=== PATIENT | female | born 1950 | race Caucasian/White ===

== ENCOUNTER 2018-06-12 16:42 | Inpatient (IN) | payer MEDICARE, BC ==
[2018-06-12] MEDS ORDERED: IPRATROPIUM-ALBUTEROL 3 ML NEB INHALATION STA (17:01)
--- NOTE | 2018-06-12 17:10 | ED ---
SOB HPI - General Chief Complaint: Shortness of Breath Stated Complaint: SOB Time Seen by Provider: 06/12/18 16:42 Source: patient, EMS, RN notes reviewed, old records reviewed Mode of arrival: ambulatory Limitations: no limitations - History of Present Illness Initial Comments: This is a 67-year-old female who presents with complaints of shortness of breath. She states she's had it on and off since April of this year. She states she has exertional dyspnea is been getting worse she believes today she has some chest pressure mild in severity she is states she generally does not feel well. She has recently had an echocardiogram which apparently was unremarkable except for perhaps some mild regurgitation she had a CAT scan which showed possible evidence of chronic pulmonary emboli in tertiary vessels on the right lower lobe. She denies any fevers chills nausea vomiting sweats she states she gets short of breath with even talking or very late physical activity. She also additionally states she has a history of asthma and had a cardiac cath 2 years ago that was apparently within normal limits. No other complaints this time no fevers chills nausea vomiting sweats cough or phlegm production reported. She did present by embolus today. MD Complaint: shortness of breath - Related Data Home Medications Medication Instructions Recorded Confirmed Atorvastatin Calcium [Lipitor] 10 mg PO DAILY 08/03/14 06/12/18 Cetirizine HCl [Zyrtec] 10 mg PO DAILY 08/03/14 06/12/18 Cholecalciferol [Vitamin D3] 400 unit PO DAILY 08/03/14 06/12/18 Fluticasone/Salmeterol [Advair 1 puff INHALATION RT-BID 08/03/14 06/12/18 500-50 Diskus] Montelukast [Singulair] 10 mg PO DAILY 08/03/14 06/12/18 Meclizine [Antivert] 25 mg PO TID PRN 10/22/15 06/12/18 Rivaroxaban [Xarelto] 20 mg PO DAILY 10/22/15 06/12/18 Acetaminophen [Tylenol] 1,000 mg PO Q4-6H PRN 11/04/15 06/12/18 Baclofen [Lioresal] 10 mg PO TID PRN 06/12/18 06/12/18 Calcium Carbonate [Calcium] 600 mg PO BID 06/12/18 06/12/18 Iron 45mg 45 mg PO MOWEFR 06/12/18 06/12/18 Lisinopril [Zestril] 5 mg PO DAILY 06/12/18 06/12/18 Omeprazole [PriLOSEC] 40 mg PO DAILY 06/12/18 06/12/18 Pregabalin [Lyrica] 100 mg PO TID 06/12/18 06/12/18 Propranolol LA [Inderal LA] 60 mg PO DAILY 06/12/18 06/12/18 Allergies Allergy/AdvReac Type Severity Reaction Status Date / Time butorphanol tartrate Allergy drop in bp Verified 06/12/18 17:07 [From Stadol] and increases resp rate celecoxib [From Celebrex] Allergy Itching in Verified 06/12/18 17:07 mouth and throat ciprofloxacin HCl Allergy Nausea & Verified 06/12/18 17:07 [From Cipro] Vomiting and headache codeine Allergy Nausea & Verified 06/12/18 17:07 Vomiting fentanyl Allergy Nausea & Verified 06/12/18 17:07 Vomiting hydrocodone bitartrate Allergy Nausea & Verified 06/12/18 17:07 [From Vicodin] Vomiting hydromorphone HCl Allergy Nausea & Verified 06/12/18 17:07 [From Dilaudid] Vomiting indomethacin sodium Allergy headache Verified 06/12/18 17:07 [From Indocin] meperidine HCl [From Demerol] Allergy headache Verified 06/12/18 17:07 methylprednisolone Allergy Unknown Verified 06/12/18 17:07 [From Medrol] metronidazole [From Flagyl] Allergy Unknown Verified 06/12/18 17:07 morphine Allergy Nausea & Verified 06/12/18 17:07 Vomiting oxycodone HCl [From Percodan] Allergy Nausea & Verified 06/12/18 17:07 Vomiting pentazocine lactate Allergy Unknown Verified 06/12/18 17:07 [From Talwin] propoxyphene HCl Allergy Unknown Verified 06/12/18 17:07 [From Darvon] Sulfa (Sulfonamide Allergy Nausea & Verified 06/12/18 17:07 Antibiotics) Vomiting Tetanus Vaccines and Toxoid Allergy Rash/Hives Verified 06/12/18 17:07 [Tetanus Vaccines & Toxoid] and itching tramadol Allergy Nausea & Verified 06/12/18 17:07 Vomiting & Diarrhea and headache Review of Systems ROS Statement: Those systems with pertinent positive or pertinent negative responses have been documented in the HPI. ROS Other: All systems not noted in ROS Statement are negative. Past Medical History Past Medical History: Asthma, Deep Vein Thrombosis (DVT), Fibromyalgia, Hyperlipidemia, Hypertension, Osteoarthritis (OA), Pneumonia, Pulmonary Embolus (PE) Additional Past Medical History / Comment(s): left ventricular hypertrophy, degenerative disk, on Rx for pink eye- Dr Dennison ok to procede with procedure History of Any Multi-Drug Resistant Organisms: None Reported Past Surgical History: Hysterectomy, Orthopedic Surgery Additional Past Surgical History / Comment(s): two total knee replacement, cataracts, 3-16 HEART CATH Past Anesthesia/Blood Transfusion Reactions: Motion Sickness, Postoperative Nausea & Vomiting (PONV) Past Psychological History: No Psychological Hx Reported Smoking Status: Never smoker Past Alcohol Use History: None Reported Past Drug Use History: None Reported - Past Family History Mother Family Medical History: Cancer, Chest Pain / Angina, Hyperlipidemia, Osteoarthritis (OA) Additional Family Medical History / Comment(s): breast cancer 2x.-masectomy uterine cancer- hysterectomy Father Family Medical History: Dementia, Diabetes Mellitus General Exam - General Exam Comments Initial Comments: This is a well-developed well-nourished awake alert oriented 3 female Limitations: no limitations General appearance: alert, anxious Head exam: Present: atraumatic, normocephalic, normal inspection Eye exam: Present: normal appearance, PERRL, EOMI. Absent: scleral icterus, conjunctival injection, periorbital swelling ENT exam: Present: normal exam, mucous membranes moist Neck exam: Present: normal inspection. Absent: tenderness, meningismus, lymphadenopathy Respiratory exam: Present: decreased breath sounds (Slightly diminished breath sounds). Absent: respiratory distress, wheezes, rales, rhonchi, stridor Cardiovascular Exam: Present: regular rate, normal rhythm, normal heart sounds. Absent: systolic murmur, diastolic murmur, rubs, gallop, clicks GI/Abdominal exam: Present: soft, normal bowel sounds. Absent: distended, tenderness, guarding, rebound, rigid Extremities exam: Present: normal inspection, full ROM, normal capillary refill. Absent: tenderness, pedal edema, joint swelling, calf tenderness Back exam: Present: normal inspection Neurological exam: Present: alert, oriented X3, CN II-XII intact Psychiatric exam: Present: normal affect, normal mood Skin exam: Present: warm, dry, intact, normal color. Absent: rash Course Vital Signs 06/12/18 06/12/18 06/12/18 16:43 16:49 16:50 Temperature 97 F L Pulse Rate 66 Respiratory 18 23 Rate Blood Pressure 170/92 O2 Sat by Pulse 96 97 96 Oximetry 06/12/18 06/12/18 06/12/18 17:30 17:40 17:50 Temperature Pulse Rate 62 51 L 56 L Respiratory 18 6 L 5 L Rate Blood Pressure 169/88 169/88 169/88 O2 Sat by Pulse 96 96 96 Oximetry 06/12/18 06/12/18 06/12/18 17:59 18:00 18:08 Temperature Pulse Rate 66 56 L 66 Respiratory 18 Rate Blood Pressure 169/88 O2 Sat by Pulse 96 Oximetry 06/12/18 18:20 Temperature Pulse Rate 53 L Respiratory 18 Rate Blood Pressure 143/76 O2 Sat by Pulse 96 Oximetry Medical Decision Making - Medical Decision Making Patient states she had minimal relief from the treatment rendered thus far. I did discuss Pfizer her and her as well as with Dr. Monroe. Patient be admitted she will be placed on heparin taken off of the current anticoagulants and pulmonary medicine will be consulted. - Lab Data Result diagrams: 06/12/18 17:13 06/12/18 17:13 Lab Results 06/12/18 06/12/18 06/12/18 Range/Units 17:13 17:13 17:13 WBC 8.1 (3.8-10.6) k/uL RBC 4.73 (3.80-5.40) m/uL Hgb 14.4 (11.4-16.0) gm/dL Hct 43.8 (34.0-46.0) % MCV 92.6 (80.0-100.0) fL MCH 30.5 (25.0-35.0) pg MCHC 32.9 (31.0-37.0) g/dL RDW 13.0 (11.5-15.5) % Plt Count 188 (150-450) k/uL Neutrophils % 62 % Lymphocytes % 29 % Monocytes % 5 % Eosinophils % 1 % Basophils % 0 % Neutrophils # 5.0 (1.3-7.7) k/uL Lymphocytes # 2.4 (1.0-4.8) k/uL Monocytes # 0.4 (0-1.0) k/uL Eosinophils # 0.1 (0-0.7) k/uL Basophils # 0.0 (0-0.2) k/uL PT (9.0-12.0) sec INR (<1.2) APTT (22.0-30.0) sec Sodium 140 (137-145) mmol/L Potassium 4.1 (3.5-5.1) mmol/L Chloride 109 H (98-107) mmol/L Carbon Dioxide 23 (22-30) mmol/L Anion Gap 8 mmol/L BUN 20 H (7-17) mg/dL Creatinine 0.55 (0.52-1.04) mg/dL Est GFR (CKD-EPI)AfAm >90 (>60 ml/min/1.73 sqM) Est GFR (CKD-EPI)NonAf >90 (>60 ml/min/1.73 sqM) Glucose 98 (74-99) mg/dL Calcium 9.7 (8.4-10.2) mg/dL Magnesium 2.1 (1.6-2.3) mg/dL Total Bilirubin 0.5 (0.2-1.3) mg/dL AST 26 (14-36) U/L ALT 27 (9-52) U/L Alkaline Phosphatase 74 (38-126) U/L Total Creatine Kinase 48 (30-135) U/L CK-MB (CK-2) 1.0 (0.0-2.4) ng/mL CK-MB (CK-2) Rel Index 2.1 Troponin I <0.012 (0.000-0.034) ng/mL NT-Pro-B Natriuret Pep pg/mL Total Protein 6.6 (6.3-8.2) g/dL Albumin 3.8 (3.5-5.0) g/dL 06/12/18 06/12/18 Range/Units 17:13 17:13 WBC (3.8-10.6) k/uL RBC (3.80-5.40) m/uL Hgb (11.4-16.0) gm/dL Hct (34.0-46.0) % MCV (80.0-100.0) fL MCH (25.0-35.0) pg MCHC (31.0-37.0) g/dL RDW (11.5-15.5) % Plt Count (150-450) k/uL Neutrophils % % Lymphocytes % % Monocytes % % Eosinophils % % Basophils % % Neutrophils # (1.3-7.7) k/uL Lymphocytes # (1.0-4.8) k/uL Monocytes # (0-1.0) k/uL Eosinophils # (0-0.7) k/uL Basophils # (0-0.2) k/uL PT 11.8 (9.0-12.0) sec INR 1.2 H (<1.2) APTT 28.3 (22.0-30.0) sec Sodium (137-145) mmol/L Potassium (3.5-5.1) mmol/L Chloride (98-107) mmol/L Carbon Dioxide (22-30) mmol/L Anion Gap mmol/L BUN (7-17) mg/dL Creatinine (0.52-1.04) mg/dL Est GFR (CKD-EPI)AfAm (>60 ml/min/1.73 sqM) Est GFR (CKD-EPI)NonAf (>60 ml/min/1.73 sqM) Glucose (74-99) mg/dL Calcium (8.4-10.2) mg/dL Magnesium (1.6-2.3) mg/dL Total Bilirubin (0.2-1.3) mg/dL AST (14-36) U/L ALT (9-52) U/L Alkaline Phosphatase (38-126) U/L Total Creatine Kinase (30-135) U/L CK-MB (CK-2) (0.0-2.4) ng/mL CK-MB (CK-2) Rel Index Troponin I (0.000-0.034) ng/mL NT-Pro-B Natriuret Pep 123 pg/mL Total Protein (6.3-8.2) g/dL Albumin (3.5-5.0) g/dL - EKG Data -: EKG Interpreted by [facility] EKG shows normal: sinus rhythm (EKG shows a sinus bradycardia with a rate of 50. Interval 208 QRS duration 88 QT since QTC 4:30/399. Criteria for LVH no acute ST changes noted.) - Radiology Data Radiology results: image reviewed Interpreted by me: I did review the imaging and report no definite acute findings or some evidence of chronic tertiary level PEs. Critical Care Time Critical Care Time: Yes Critical Care Time: 31 minutes of critical care time which includes monitoring the EMS run and discussion with the paramedics history physical labs x-rays several reevaluation the patient. Discussed with patient family discuss with the admitting physician review of old charting documentation the above and admission orders. Disposition Clinical Impression: Pulmonary embolism, Dyspnea, Failure of outpatient treatment Disposition: ADMITTED IP TO THIS [facility] Condition: Stable Referrals: Gallo Monroe MD [Primary Care Provider] - 1-2 days
[2018-06-12 17:33] LABS: Basophils % (A) 0 %; Eosinophils # (A) 0.1 k/uL (0-0.7); Eosinophils % (A) 1 %; HCT 43.8 % (34.0-46.0); HGB 14.4 gm/dL (11.4-16.0); Lymphocytes # (A) 2.4 k/uL (1.0-4.8); Lymphocytes % (A) 29 %; MCH 30.5 pg (25.0-35.0); MCHC 32.9 g/dL (31.0-37.0); MCV 92.6 fL (80.0-100.0); Mean Platelet Volume 7.1; Monocytes # (A) 0.4 k/uL (0-1.0); Monocytes % (A) 5 %; Neutrophils % (A) 62 %; Platelet Count 188 k/uL (150-450); RBC 4.73 m/uL (3.80-5.40); WBC 8.1 k/uL (3.8-10.6)
[2018-06-12 17:34] LABS: ALT 27 U/L (9-52); AST 26 U/L (14-36); Albumin 3.8 g/dL (3.5-5.0); Alkaline Phosphatase 74 U/L (38-126); Anion Gap 8 mmol/L; Blood Urea Nitrogen 20 mg/dL (7-17); Calcium 9.7 mg/dL (8.4-10.2); Carbon Dioxide 23 mmol/L (22-30); Chloride 109 mmol/L (98-107); Glucose 98 mg/dL (74-99); Magnesium 2.1 mg/dL (1.6-2.3); Potassium 4.1 mmol/L (3.5-5.1); Sodium 140 mmol/L (137-145); Total Bilirubin 0.5 mg/dL (0.2-1.3); Total Protein 6.6 g/dL (6.3-8.2)
[2018-06-12 17:36] LABS: Creatine Kinase 48 U/L (30-135)
[2018-06-12 17:38] LABS: INR 1.2 (<1.2); Partial Thromboplastin Time 28.3 sec (22.0-30.0); Prothrombin Time 11.8 sec (9.0-12.0)
[2018-06-12 17:49] LABS: Troponin I <0.012 ng/mL (0.000-0.034)
--- NOTE | 2018-06-12 18:31 | XR ---
EXAMINATION TYPE: XR chest 2V DATE OF EXAM: 06/12/2018 COMPARISON: 08/03/2014 HISTORY: Short of breath TECHNIQUE: Frontal and lateral views of the chest are obtained. FINDINGS: Heart and mediastinum are normal. Lungs are clear of consolidation. There is no heart fail ure. There are chest leads. Costophrenic angles are clear. IMPRESSION: No active cardiopulmonary disease. There is improved inspiration compared to old exam.
[2018-06-12] MEDS ORDERED: HEPARIN SODIUM,PORCINE 5,000 UNIT/ML 1 ML VIAL IV STA (19:59)
[2018-06-12] MEDS ORDERED: BACLOFEN 10 MG TAB PO PRN (20:12)
[2018-06-12] MEDS ORDERED: MECLIZINE 25 MG TAB PO PRN (20:12)
[2018-06-12] MEDS: SODIUM CHLORIDE 0.9% 1,000 ML IV SCH (20:20)
[2018-06-12] MEDS: HEPARIN SOD,PORK IN 0.45% NACL 25,000 UNIT in 0.45% NACL 1 500ML.BAG IV SCH (20:21)
[2018-06-12] MEDS: IPRATROPIUM-ALBUTEROL 3 ML NEB INHALATION SCH (20:53)
[2018-06-12] MEDS: PREGABALIN 100 MG CAP PO SCH (21:26)
[2018-06-12] MEDS: CALCIUM CARBONATE 500 MG CHEWABLE PO SCH (21:26)
[2018-06-12] MEDS: ACETAMINOPHEN TAB 500 MG TAB PO PRN (22:15)
[2018-06-13] MEDS: IPRATROPIUM-ALBUTEROL 3 ML NEB INHALATION SCH ×7 (00:30→19:44)
[2018-06-13] MEDS: PANTOPRAZOLE 40 MG TABLET PO SCH (06:01)
[2018-06-13] MEDS ORDERED: SYMBICORT 160-4.5 MCG INHALER INHALATION SCH (08:00)
[2018-06-13] MEDS: ATORVASTATIN 10 MG TAB PO SCH (10:08)
[2018-06-13] MEDS: LISINOPRIL 5 MG TAB PO SCH (10:08)
[2018-06-13] MEDS: FERROUS SULFATE 325 MG TAB PO SCH (10:08)
[2018-06-13] MEDS: CALCIUM CARBONATE 500 MG CHEWABLE PO SCH ×2 (10:08→20:35)
[2018-06-13] MEDS: PREGABALIN 100 MG CAP PO SCH ×3 (10:08→20:35)
[2018-06-13] MEDS: PROPRANOLOL LA 60 MG CAP.SA.24H PO SCH (10:14)
[2018-06-13] MEDS: CHOLECALCIFEROL 400 UNIT TAB PO SCH (10:14)
[2018-06-13] MEDS: ACETAMINOPHEN TAB 500 MG TAB PO PRN ×3 (10:14→20:47)
[2018-06-13] MEDS: LORATADINE 10 MG TAB PO SCH (10:15)
[2018-06-13] MEDS: MONTELUKAST 10 MG TAB PO SCH (10:15)
[2018-06-13] MEDS: HEPARIN SOD,PORK IN 0.45% NACL 25,000 UNIT in 0.45% NACL 1 500ML.BAG IV SCH ×2 (12:35→12:40)
--- NOTE | 2018-06-13 12:48 | P.CRDCN ---
History of Present Illness Consult date: 06/13/18 Chief complaint: Shortness of breath History of present illness: This is a pleasant 67-year-old female patient with a past medical history significant for hypertension and dyslipidemia was sent directly from her primary care physician office to the hospital for further evaluation off shortness of breath and presyncope. For the last 4 weeks, she has been experiencing progressive exertional dyspnea without orthopnea and without any PND. The patient stated that the shortness of breath was getting worse even walking from one room to another room at home enough to make her short of breath. The patient does not have any baseline shortness of breath with exertion before her symptoms started about 4 weeks ago. She does have asthma and also she does have history of PE she is on oral anticoagulation since 2013. Beside that the patient describes chest discomfort , as a tightness across the chest, without any radiation. Yesterday the patient was seen at her primary care physician office and she was quite short of breath and because of that she was sent to have a computed tomography scan of the chest which showed possible PE. An echocardiogram was performed recently as an outpatient and revealed normal LV function with impaired relaxation of the left ventricle or stage I diastolic dysfunction and without any significant valvular abnormalities. Because the patient was quite short of breath yesterday and she was having presyncope she was sent to the hospital for further evaluation and management. The EKG showed sinus rhythm without any significant ST or T-wave abnormalities. The chest x-ray did not show any acute abnormalities. The BNP came in to be within normal limits. The CBC and BNP came in to be within normal limits. 2 sets of troponin were checked and came in to be unremarkable. I did review the echocardiogram which was performed at [facility] and also the computed tomography scan as well. Please note that the patient underwent a heart catheterization in 2016 and that revealed no evidence of severe underlying coronary artery disease. She has been maintaining normal sinus mechanism Y she is in the hospital. Past Medical History Past Medical History: Asthma, Deep Vein Thrombosis (DVT), Fibromyalgia, Hyperlipidemia, Hypertension, Osteoarthritis (OA), Pneumonia, Pulmonary Embolus (PE) Additional Past Medical History / Comment(s): left ventricular hypertrophy, degenerative disk, History of Any Multi-Drug Resistant Organisms: None Reported Past Surgical History: Hysterectomy, Orthopedic Surgery Additional Past Surgical History / Comment(s): two total knee replacement, cataracts, 11-04-15 HEART CATH Past Anesthesia/Blood Transfusion Reactions: Motion Sickness, Postoperative Nausea & Vomiting (PONV) Smoking Status: Never smoker - Past Family History Mother Family Medical History: Cancer, Chest Pain / Angina, Hyperlipidemia, Osteoarthritis (OA) Additional Family Medical History / Comment(s): breast cancer 2x.-masectomy uterine cancer- hysterectomy Father Family Medical History: Dementia, Diabetes Mellitus Medications and Allergies Home Medications Medication Instructions Recorded Confirmed Type Atorvastatin Calcium [Lipitor] 10 mg PO DAILY 08/03/14 06/12/18 History Cetirizine HCl [Zyrtec] 10 mg PO DAILY 08/03/14 06/12/18 History Cholecalciferol [Vitamin D3] 400 unit PO DAILY 08/03/14 06/12/18 History Fluticasone/Salmeterol [Advair 1 puff INHALATION RT-BID 08/03/14 06/12/18 History 500-50 Diskus] Montelukast [Singulair] 10 mg PO DAILY 08/03/14 06/12/18 History Meclizine [Antivert] 25 mg PO TID PRN 10/22/15 06/12/18 History Rivaroxaban [Xarelto] 20 mg PO DAILY 10/22/15 06/12/18 History Acetaminophen [Tylenol] 1,000 mg PO Q4-6H PRN 11/04/15 06/12/18 History Baclofen [Lioresal] 10 mg PO TID PRN 06/12/18 06/12/18 History Calcium Carbonate [Calcium] 600 mg PO BID 06/12/18 06/12/18 History Iron 45mg 45 mg PO MOWEFR 06/12/18 06/12/18 History Lisinopril [Zestril] 5 mg PO DAILY 06/12/18 06/12/18 History Omeprazole [PriLOSEC] 40 mg PO DAILY 06/12/18 06/12/18 History Pregabalin [Lyrica] 100 mg PO TID 06/12/18 06/12/18 History Propranolol LA [Inderal LA] 60 mg PO DAILY 06/12/18 06/12/18 History Allergies Allergy/AdvReac Type Severity Reaction Status Date / Time butorphanol tartrate Allergy drop in bp Verified 06/12/18 17:07 [From Stadol] and increases resp rate celecoxib [From Celebrex] Allergy Itching in Verified 06/12/18 17:07 mouth and throat ciprofloxacin HCl Allergy Nausea & Verified 06/12/18 17:07 [From Cipro] Vomiting and headache codeine Allergy Nausea & Verified 06/12/18 17:07 Vomiting fentanyl Allergy Nausea & Verified 06/12/18 17:07 Vomiting hydrocodone bitartrate Allergy Nausea & Verified 06/12/18 17:07 [From Vicodin] Vomiting hydromorphone HCl Allergy Nausea & Verified 06/12/18 17:07 [From Dilaudid] Vomiting indomethacin sodium Allergy headache Verified 06/12/18 17:07 [From Indocin] meperidine HCl [From Demerol] Allergy headache Verified 06/12/18 17:07 methylprednisolone Allergy Unknown Verified 06/12/18 17:07 [From Medrol] metronidazole [From Flagyl] Allergy Unknown Verified 06/12/18 17:07 morphine Allergy Nausea & Verified 06/12/18 17:07 Vomiting oxycodone HCl [From Percodan] Allergy Nausea & Verified 06/12/18 17:07 Vomiting pentazocine lactate Allergy Unknown Verified 06/12/18 17:07 [From Talwin] propoxyphene HCl Allergy Unknown Verified 06/12/18 17:07 [From Darvon] Sulfa (Sulfonamide Allergy Nausea & Verified 06/12/18 17:07 Antibiotics) Vomiting Tetanus Vaccines and Toxoid Allergy Rash/Hives Verified 06/12/18 17:07 [Tetanus Vaccines & Toxoid] and itching tramadol Allergy Nausea & Verified 06/12/18 17:07 Vomiting & Diarrhea and headache Physical Exam Vitals: Vital Signs Temp Pulse Pulse Resp BP BP Pulse Ox 06/13/18 12:13 60 06/13/18 12:02 60 06/13/18 11:35 53 L 18 06/13/18 08:32 60 06/13/18 08:19 56 L 06/13/18 08:00 98.1 F 53 L 18 138/65 96 06/13/18 04:00 58 L 16 111/60 93 L 06/13/18 00:00 97.5 F L 64 16 107/67 96 06/12/18 22:04 96.9 F L 60 16 168/79 95 06/12/18 21:10 97.9 F 65 18 122/75 96 06/12/18 21:04 68 06/12/18 20:54 68 06/12/18 20:30 68 15 134/76 95 06/12/18 20:20 62 21 95 06/12/18 20:10 61 20 96 06/12/18 20:00 61 18 125/62 94 L 06/12/18 19:50 56 L 18 125/62 95 06/12/18 19:40 58 L 12 125/62 95 06/12/18 19:30 53 L 11 L 125/62 96 06/12/18 19:10 60 18 125/62 95 06/12/18 18:20 53 L 18 143/76 96 06/12/18 18:08 66 06/12/18 18:00 56 L 18 169/88 96 06/12/18 17:59 66 06/12/18 17:50 56 L 5 L 169/88 96 06/12/18 17:40 51 L 6 L 169/88 96 06/12/18 17:30 62 18 169/88 96 06/12/18 16:50 23 96 06/12/18 16:49 97 06/12/18 16:43 97 F L 66 18 170/92 96 Intake and Output 06/12/18 06/13/18 06/13/18 22:59 06:59 14:59 Intake Total 40 238.56 256.749 Balance 40 238.56 256.749 Intake: Intake, IV Titration 40 238.56 156.749 Amount Heparin Sod,Pork in 0.45% 238.56 156.749 NaCl 25,000 unit In 0.45 % NaCl 1 500ml.bag @ 18 UNITS/KG/HR 28.57 mls/hr IV .[id number] [facility] Rx#: [id number] Sodium Chloride 0.9% 1, 40 000 ml @ 20 mls/hr IV . Q24H [facility] Rx#:[id number] Oral 100 Other: Voiding Method Toilet # Voids 1 1 Weight 79.379 kg 79.6 kg - Constitutional General appearance: no acute distress - Respiratory Respiratory: bilateral: CTA - Cardiovascular Rhythm: regular Heart sounds: normal: S1, S2 Results 06/12/18 17:13 06/12/18 17:13 Cardiac Enzymes 06/12/18 06/12/18 06/12/18 Range/Units 17:13 17:13 23:11 AST 26 (14-36) U/L CK-MB (CK-2) 1.0 (0.0-2.4) ng/mL Troponin I <0.012 <0.012 (0.000-0.034) ng/mL Coagulation 06/12/18 06/13/18 06/13/18 Range/Units 17:13 02:58 11:27 PT 11.8 (9.0-12.0) sec APTT 28.3 >200.0 H* >200.0 H* (22.0-30.0) sec CBC 06/12/18 Range/Units 17:13 WBC 8.1 (3.8-10.6) k/uL RBC 4.73 (3.80-5.40) m/uL Hgb 14.4 (11.4-16.0) gm/dL Hct 43.8 (34.0-46.0) % Plt Count 188 (150-450) k/uL Comprehensive Metabolic Panel 06/12/18 Range/Units 17:13 Sodium 140 (137-145) mmol/L Potassium 4.1 (3.5-5.1) mmol/L Chloride 109 H (98-107) mmol/L Carbon Dioxide 23 (22-30) mmol/L BUN 20 H (7-17) mg/dL Creatinine 0.55 (0.52-1.04) mg/dL Glucose 98 (74-99) mg/dL Calcium 9.7 (8.4-10.2) mg/dL AST 26 (14-36) U/L ALT 27 (9-52) U/L Alkaline Phosphatase 74 (38-126) U/L Total Protein 6.6 (6.3-8.2) g/dL Albumin 3.8 (3.5-5.0) g/dL Current Medications Generic Name Dose Route Start Last Admin Trade Name Freq PRN Reason Stop Dose Admin Acetaminophen 1,000 mg 06/12/18 20:12 06/13/18 10:14 Tylenol Tab PO 1,000 mg Q4H PRN Administration Mild to Moderate Pain Albuterol/Ipratropium 3 ml 06/12/18 20:00 06/13/18 12:02 Duoneb 0.5 Mg-3 Mg/3 Ml Soln INHALATION 3 ml RT-Q4H [facility]O Administration Atorvastatin Calcium 10 mg 06/13/18 09:00 06/13/18 10:08 Lipitor PO 10 mg DAILY [facility]O Administration Baclofen 10 mg 06/12/18 20:12 Lioresal PO TID PRN Muscle Spasm Budesonide/Formoterol Fumarate 2 puff 06/13/18 08:00 06/13/18 08:19 Symbicort 160-4.5 Mcg Inhaler INHALATION 2 puff RT-BID [facility] Administration Calcium Carbonate/Glycine 500 mg 06/12/18 21:00 06/13/18 10:08 Tums PO 500 mg BID [facility] Administration Cholecalciferol 400 unit 06/13/18 09:00 06/13/18 10:14 Vitamin D3 PO 400 unit DAILY [facility] Administration Ferrous Sulfate 325 mg 06/13/18 09:00 06/13/18 10:08 Feosol PO 325 mg MOWEFR [facility] Administration Heparin Sodium/Sodium Chloride 500 mls @ 28.57 mls/hr 06/12/18 20:00 12:40 25,000 unit/ Sodium Chloride IV Not Given .[id number] [facility] Protocol 18 UNITS/KG/HR Sodium Chloride 1,000 mls @ 20 mls/hr 06/12/18 20:00 06/12/18 20:20 Saline 0.9% IV 20 mls/hr .Q24H [facility] Administration Lisinopril 5 mg 06/13/18 09:00 06/13/18 10:08 Zestril PO 5 mg DAILY [facility] Administration Loratadine 10 mg 06/13/18 09:00 06/13/18 10:15 Claritin PO 10 mg DAILY [facility] Administration Meclizine HCl 25 mg 06/12/18 20:12 Antivert PO TID PRN dizzyness Montelukast Sodium 10 mg 06/13/18 09:00 06/13/18 10:15 Singulair PO 10 mg DAILY [facility] Administration Pantoprazole Sodium 40 mg 06/13/18 07:30 06/13/18 06:01 Protonix PO 40 mg [id number] [facility]O Administration Pregabalin 100 mg 06/12/18 22:00 06/13/18 10:08 Lyrica PO 100 mg TID [facility] Administration Propranolol HCl 60 mg 06/13/18 09:00 06/13/18 10:14 Inderal La PO 60 mg DAILY [facility] Administration Intake and Output 06/12/18 06/13/18 06/13/18 22:59 06:59 14:59 Intake Total 40 238.56 256.749 Balance 40 238.56 256.749 Intake: Intake, IV Titration 40 238.56 156.749 Amount Heparin Sod,Pork in 0.45% 238.56 156.749 NaCl 25,000 unit In 0.45 % NaCl 1 500ml.bag @ 18 UNITS/KG/HR 28.57 mls/hr IV .[id number] [facility] Rx#: [id number] Sodium Chloride 0.9% 1, 40 000 ml @ 20 mls/hr IV . Q24H [facility] Rx#:[id number] Oral 100 Other: Voiding Method Toilet # Voids 1 1 Weight 79.379 kg 79.6 kg 06/12/18 17:13 06/12/18 17:13 Assessment and Plan Assessment: Assessment #1 exertional dyspnea without orthopnea or PND. No lower extremities edema. #2 possible pulmonary pauses in on a recent computed tomography scan of the chest in a patient who is known to have PE currently on oral anticoagulation. #3 diastolic dysfunction of the left ventricle, stage I, the patient currently is in euvolemic #4 systemic hypertension #5 hypertensive heart disease Plan #1 the patient does not seems to be in overt congestive heart failure at this point. Beside that, her BNP came in to be within normal limits and the chest x- ray did not show any acute abnormalities #2 I doubt that her symptoms are related to severe underlying CAD, giving a normal coronary angiogram was performed 2 years ago, in 2016 #3 I would rule out any acute coronary event. I will obtain one more sets of serial cardiac enzymes. #4 currently the patient is on heparin IV for anticoagulation for possible PE. I with maybe consider changing the Xarelto into different oral anticoagulation right Eliquis. #5 down the line, and probably as an outpatient, she might need to have transesophageal echocardiogram to rule out any intracardiac shunt like atrial septal defect, giving the right side enlargement on the echocardiogram #6 we will continue following up with her. Thank you for allowing us participate in her care.
--- NOTE | 2018-06-13 12:50 | P.HPIM ---
History of Present Illness H&P Date: 06/13/18 This is a 67-year-old female patient of Dr. Monroe and Dr. Lazar with a past medical history of asthma, DVT and pulmonary embolus diagnosed 4 years ago on Xarelto, fibromyalgia, hypertension, hyperlipidemia, left ventricular hypertrophy, diffuse osteoarthritis, ALLERGIC rhinitis, chronic back pain status post epidural injections. Patient recently underwent CAT scan of the chest that showed possible chronic pulmonary emboli and had an echocardiogram in the office that showed diastolic dysfunction and normal EF. She was in the office for an appointment and was sitting down, thought she was going to pass out and fall she couldn't walk to the car. EMS was called and she was brought into the hospital. She stated that she was feeling lightheaded and almost nauseated along with shortness of breath. She denies any cough or sputum production she denies any lower extremity edema. Bowel movements have been normal. She states that she feels like she is not getting enough breath. While at the office, a prescription for eliquis was sent in for the patient to start instead of Xarelto. She has history of a normal heart catheterization done in October [address] Dennison. Patient presented to [facility] emergency center, initial blood pressure was 170/92, she was afebrile. Heart rate running in the 50s and 60s. Troponin was negative, proBNP 123. EKG was a sinus bradycardia. Chest x- ray showed no acute cardiopulmonary disease. Patient was started on a heparin drip and admitted to the cardiac stepdown unit and consult requested with pulmonary medicine and after evaluation, cardiology consult requested regarding lightheadedness and near syncopal episode. Patient states that she did not get any sleep during the night as she was woken up about every hour and a half. She is complaining of headache this morning. She was on the phone with her son in time for less than 5 minutes to fall she was very short of breath. Review of Systems All systems: negative Constitutional: Reports fatigue, Reports weakness, Denies chills, Denies fever, Denies poor appetite, Denies weight loss Eyes: denies blurred vision, denies pain Ears, nose, mouth and throat: Denies dental pain, Denies headache, Denies mouth pain, Denies sore throat, Denies vertigo Cardiovascular: Reports lightheadedness, Reports shortness of breath, Denies chest pain, Denies leg edema, Denies palpitations, Denies syncope Respiratory: Reports dyspnea, Denies cough, Denies cough with sputum, Denies excessive sputum, Denies hemoptysis, Denies home oxygen, Denies sleep apnea, Denies wheezing Gastrointestinal: Denies abdominal pain, Denies bloating, Denies constipation, Denies diarrhea, Denies loss of appetite, Denies melena, Denies nausea, Denies vomiting Genitourinary: Denies dysuria, Denies hematuria, Denies urgency, Denies urinary frequency Musculoskeletal: Denies frequent falls, Denies gait dysfunction, Denies myalgias Integumentary: Denies pruritus, Denies rash, Denies wounds Neurological: Denies numbness, Denies weakness Psychiatric: Denies anxiety, Denies depression Endocrine: Denies fatigue, Denies weight change Past Medical History Past Medical History: Asthma, Deep Vein Thrombosis (DVT), Fibromyalgia, Hyperlipidemia, Hypertension, Osteoarthritis (OA), Pneumonia, Pulmonary Embolus (PE) Additional Past Medical History / Comment(s): left ventricular hypertrophy, degenerative disk disease of cervical spine and lumbar spine, migraine headaches , salivary gland blockage seen by Dr. Lock, tremor History of Any Multi-Drug Resistant Organisms: None Reported Past Surgical History: Hysterectomy, Orthopedic Surgery Additional Past Surgical History / Comment(s): two total knee replacement, cataracts, 3-9-16 HEART CATH Past Anesthesia/Blood Transfusion Reactions: Motion Sickness, Postoperative Nausea & Vomiting (PONV) Smoking Status: Never smoker Additional Past Alcohol Use History / Comment(s): Patient is a lifelong nonsmoker, no illicit drug use, no alcohol use. She lives at home with her second . She does have history of secondhand smoke exposure 8+ years with her first . - Past Family History Mother Family Medical History: Cancer, Chest Pain / Angina, Hyperlipidemia, Osteoarthritis (OA) Additional Family Medical History / Comment(s): breast cancer 2x.-masectomy uterine cancer- hysterectomy. Mother at age 94 from sepsis, renal failure and history of chronic small bowel obstruction. Father Family Medical History: Dementia, Diabetes Mellitus Additional Family Medical History / Comment(s): Father at age 93 with history of dementia and diabetes Sister(s) Additional Family Medical History / Comment(s): Patient has one sister with history of breast cancer. Patient has no brothers. Patient has one son with history of seasonal ALLERGIES. Medications and Allergies Home Medications Medication Instructions Recorded Confirmed Type Atorvastatin Calcium [Lipitor] 10 mg PO DAILY 08/03/14 06/12/18 History Cetirizine HCl [Zyrtec] 10 mg PO DAILY 08/03/14 06/12/18 History Cholecalciferol [Vitamin D3] 400 unit PO DAILY 08/03/14 06/12/18 History Fluticasone/Salmeterol [Advair 1 puff INHALATION RT-BID 08/03/14 06/12/18 History 500-50 Diskus] Montelukast [Singulair] 10 mg PO DAILY 08/03/14 06/12/18 History Meclizine [Antivert] 25 mg PO TID PRN 10/22/15 06/12/18 History Rivaroxaban [Xarelto] 20 mg PO DAILY 10/22/15 06/12/18 History Acetaminophen [Tylenol] 1,000 mg PO Q4-6H PRN 11/04/15 06/12/18 History Baclofen [Lioresal] 10 mg PO TID PRN 06/12/18 06/12/18 History Calcium Carbonate [Calcium] 600 mg PO BID 06/12/18 06/12/18 History Iron 45mg 45 mg PO MOWEFR 06/12/18 06/12/18 History Lisinopril [Zestril] 5 mg PO DAILY 06/12/18 06/12/18 History Omeprazole [PriLOSEC] 40 mg PO DAILY 06/12/18 06/12/18 History Pregabalin [Lyrica] 100 mg PO TID 06/12/18 06/12/18 History Propranolol LA [Inderal LA] 60 mg PO DAILY 06/12/18 06/12/18 History Allergies Allergy/AdvReac Type Severity Reaction Status Date / Time butorphanol tartrate Allergy drop in bp Verified 06/12/18 17:07 [From Stadol] and increases resp rate celecoxib [From Celebrex] Allergy Itching in Verified 06/12/18 17:07 mouth and throat ciprofloxacin HCl Allergy Nausea & Verified 06/12/18 17:07 [From Cipro] Vomiting and headache codeine Allergy Nausea & Verified 06/12/18 17:07 Vomiting fentanyl Allergy Nausea & Verified 06/12/18 17:07 Vomiting hydrocodone bitartrate Allergy Nausea & Verified 06/12/18 17:07 [From Vicodin] Vomiting hydromorphone HCl Allergy Nausea & Verified 06/12/18 17:07 [From Dilaudid] Vomiting indomethacin sodium Allergy headache Verified 06/12/18 17:07 [From Indocin] meperidine HCl [From Demerol] Allergy headache Verified 06/12/18 17:07 methylprednisolone Allergy Unknown Verified 06/12/18 17:07 [From Medrol] metronidazole [From Flagyl] Allergy Unknown Verified 06/12/18 17:07 morphine Allergy Nausea & Verified 06/12/18 17:07 Vomiting oxycodone HCl [From Percodan] Allergy Nausea & Verified 06/12/18 17:07 Vomiting pentazocine lactate Allergy Unknown Verified 06/12/18 17:07 [From Talwin] propoxyphene HCl Allergy Unknown Verified 06/12/18 17:07 [From Darvon] Sulfa (Sulfonamide Allergy Nausea & Verified 06/12/18 17:07 Antibiotics) Vomiting Tetanus Vaccines and Toxoid Allergy Rash/Hives Verified 06/12/18 17:07 [Tetanus Vaccines & Toxoid] and itching tramadol Allergy Nausea & Verified 06/12/18 17:07 Vomiting & Diarrhea and headache Physical Exam Vitals: Vital Signs Temp Pulse Pulse Resp BP BP Pulse Ox 06/13/18 08:32 60 06/13/18 08:19 56 L 06/13/18 04:00 58 L 16 111/60 93 L 06/13/18 00:00 97.5 F L 64 16 107/67 96 06/12/18 22:04 96.9 F L 60 16 168/79 95 06/12/18 21:10 97.9 F 65 18 122/75 96 06/12/18 21:04 68 06/12/18 20:54 68 06/12/18 20:30 68 15 134/76 95 06/12/18 20:20 62 21 95 06/12/18 20:10 61 20 96 06/12/18 20:00 61 18 125/62 94 L 06/12/18 19:50 56 L 18 125/62 95 06/12/18 19:40 58 L 12 125/62 95 06/12/18 19:30 53 L 11 L 125/62 96 06/12/18 19:10 60 18 125/62 95 06/12/18 18:20 53 L 18 143/76 96 06/12/18 18:08 66 06/12/18 18:00 56 L 18 169/88 96 06/12/18 17:59 66 06/12/18 17:50 56 L 5 L 169/88 96 06/12/18 17:40 51 L 6 L 169/88 96 06/12/18 17:30 62 18 169/88 96 06/12/18 16:50 23 96 06/12/18 16:49 97 06/12/18 16:43 97 F L 66 18 170/92 96 Intake and Output 06/12/18 06/13/18 06/13/18 22:59 06:59 14:59 Intake Total 40 238.56 100 Balance 40 238.56 100 Intake: Intake, IV Titration 40 238.56 Amount Heparin Sod,Pork in 0.45% 238.56 NaCl 25,000 unit In 0.45 % NaCl 1 500ml.bag @ 18 UNITS/KG/HR 28.57 mls/hr IV .[id number] [facility] Rx#: [id number] Sodium Chloride 0.9% 1, 40 000 ml @ 20 mls/hr IV . Q24H [facility] Rx#:[id number] Oral 100 Other: Voiding Method Toilet # Voids 1 1 Weight 79.379 kg 79.6 kg Gen: This is a overweight 67-year-old female. She is sitting up in bed and appears to be comfortable and in no acute distress. HEENT: Head is atraumatic, normocephalic. Pupils equal, round. Sclerae is anicteric. Conjunctiva slightly pale. Mucous members of the mouth are slightly dry. NECK: Supple. No JVD. No lymphadenopathy. No thyromegaly. LUNGS: Clear to auscultation. No wheezes or rhonchi. No accessory muscle usage. No intercostal retractions. HEART: Regular rate and rhythm. Systolic ejection murmur. ABDOMEN: Soft. Bowel sounds are present. No masses. No tenderness. EXTREMITIES: No pedal edema. No calf tenderness. Dorsalis pedis palpable bilaterally. NEUROLOGICAL: Patient is awake, alert and oriented x3. Cranial nerves 2 through 12 are grossly intact. Results CBC & Chem 7: 06/12/18 17:13 06/12/18 17:13 Labs: Abnormal Lab Results - Last 24 Hours (Table) 06/12/18 06/12/18 06/13/18 Range/Units 17:13 17:13 02:58 INR 1.2 H (<1.2) APTT >200.0 H* (22.0-30.0) sec Chloride 109 H (98-107) mmol/L BUN 20 H (7-17) mg/dL Thrombosis Risk Factor Assmnt - DVT/VTE Prophylaxis DVT/VTE Prophylaxis: Pharmacologic Prophylaxis ordered - Choose All That Apply Any of the Below Risk Factors Present?: Yes Each Factor Represents 1 point: Obesity (BMI >25) Other Risk Factors: Yes Each Risk Factor Represents 2 Points: Age 61-74 years Each Risk Factor Represents 3 Points: History of DVT/PE Thrombosis Risk Factor Assessment Total Risk Factor Score: 6 Thrombosis Risk Factor Assessment Level: High Risk Assessment and Plan Plan: 1. Shortness of breath of unclear etiology, possibly related to chronic/new pulmonary embolism, acute on chronic diastolic heart failure. No asthma exacerbation noted. Heart rate is currently controlled with Inderal. Consult requested with Dr. Lazar and Dr. Ludwig. Patient is currently on heparin drip. Xarelto is on hold and patient has a prescription for eliquis at her pharmacy to start at the time of discharge. 2. Near syncopal episode. Consult with cardiology. Continue cardiac monitoring. 3. Hypertension hypertensive cardio vascular disease with left ventricular hypertrophy. Continue Inderal LA 60 mg daily, lisinopril 5 mg daily. 4. Hyperlipidemia. Continue Lipitor 10 mg daily. 5. Mild persistent asthma without exacerbation. Continue Singulair 10 mg daily , Symbicort, Zyrtec. 6. Chronic diastolic heart failure. Continue Inderal for heart rate control. Known EF is normal with left ventricular hypertrophy on recent echocardiogram done in the office. 7. Fibromyalgia. Continue Lyrica 100 mg 3 times daily, baclofen 10 mg 3 times daily as needed. 8. DVT prophylaxis. Heparin drip. 9. GI prophylaxis. Protonix. 10. CODE STATUS: Full code. Patient will be admitted to the hospital for a minimum of 2 night stay. Discharge plan: Return home Impression and plan of care have been directed as dictated by the signing physician. Becky Wyman nurse practitioner acting as scribe for signing physician.
--- NOTE | 2018-06-13 14:34 | P.CNPUL ---
History of Present Illness Consult date: 06/13/18 Reason for consult: dyspnea, cough, asthma, hypoxemia, pulmonary embolism, abnormal CXR/CT Chief complaint: Shortness of breath and coughing. History of present illness: Pulmonary consultation dated 06/13/2018 67-year-old female who presented to the emergency department on June 12 complaints of shortness of breath. She states that the shortness of breath is been on and off now for a number of weeks. In addition, she does have a cough. She states that she was almost ready to pass out she was so short of breath. She recently had a echocardiogram which was essentially unremarkable save for some mild mitral regurgitation. She recently also had a CT angiogram the chest which possibly showed some very peripheral small pulmonary emboli. She does have a history of chronic bronchial asthma. She also she had a cardiac catheter couple years ago which was normal. She denies any wheezing. Her cough is mostly nonproductive. She denies any fever or chills. She denies any nausea vomiting or diarrhea. I spoke to the primary about this patient. The patient has been on Xarelto. In addition to asthma, the patient has a previous history of deep venous thrombosis pulmonary embolism fibromyalgia hyperlipidemia hypertension DJD and pneumonia. She also has a history of degenerative disc disease and some orthopedic not orthopedic surgical procedures. Review of Systems A 14 point review of system is positive for shortness of breath and cough. She denies any chest tightness or wheezing. Isn't producing much or any phlegm when she coughs. She states that she is profoundly short of breath particularly when she is exerting herself. Past Medical History Past Medical History: Asthma, Deep Vein Thrombosis (DVT), Fibromyalgia, Hyperlipidemia, Hypertension, Osteoarthritis (OA), Pneumonia, Pulmonary Embolus (PE) Additional Past Medical History / Comment(s): left ventricular hypertrophy, degenerative disk disease of cervical spine and lumbar spine, migraine headaches , salivary gland blockage seen by Dr. Lock, tremor History of Any Multi-Drug Resistant Organisms: None Reported Past Surgical History: Hysterectomy, Orthopedic Surgery Additional Past Surgical History / Comment(s): two total knee replacement, cataracts, 3-16 HEART CATH Past Anesthesia/Blood Transfusion Reactions: Motion Sickness, Postoperative Nausea & Vomiting (PONV) Smoking Status: Never smoker Additional Past Alcohol Use History / Comment(s): Patient is a lifelong nonsmoker, no illicit drug use, no alcohol use. She lives at home with her second . She does have history of secondhand smoke exposure 8+ years with her first . - Past Family History Sister(s) Additional Family Medical History / Comment(s): Patient has one sister with history of breast cancer. Patient has no brothers. Patient has one son with history of seasonal ALLERGIES. Mother Family Medical History: Cancer, Chest Pain / Angina, Hyperlipidemia, Osteoarthritis (OA) Additional Family Medical History / Comment(s): breast cancer 2x.-masectomy uterine cancer- hysterectomy. Mother at age 94 from sepsis, renal failure and history of chronic small bowel obstruction. Father Family Medical History: Dementia, Diabetes Mellitus Additional Family Medical History / Comment(s): Father at age 93 with history of dementia and diabetes Medications and Allergies Home Medications Medication Instructions Recorded Confirmed Type Atorvastatin Calcium [Lipitor] 10 mg PO DAILY 08/03/14 06/12/18 History Cetirizine HCl [Zyrtec] 10 mg PO DAILY 08/03/14 06/12/18 History Cholecalciferol [Vitamin D3] 400 unit PO DAILY 08/03/14 06/12/18 History Fluticasone/Salmeterol [Advair 1 puff INHALATION RT-BID 08/03/14 06/12/18 History 500-50 Diskus] Montelukast [Singulair] 10 mg PO DAILY 08/03/14 06/12/18 History Meclizine [Antivert] 25 mg PO TID PRN 10/22/15 06/12/18 History Rivaroxaban [Xarelto] 20 mg PO DAILY 10/22/15 06/12/18 History Acetaminophen [Tylenol] 1,000 mg PO Q4-6H PRN 11/04/15 06/12/18 History Baclofen [Lioresal] 10 mg PO TID PRN 06/12/18 06/12/18 History Calcium Carbonate [Calcium] 600 mg PO BID 06/12/18 06/12/18 History Iron 45mg 45 mg PO MOWEFR 06/12/18 06/12/18 History Lisinopril [Zestril] 5 mg PO DAILY 06/12/18 06/12/18 History Omeprazole [PriLOSEC] 40 mg PO DAILY 06/12/18 06/12/18 History Pregabalin [Lyrica] 100 mg PO TID 06/12/18 06/12/18 History Propranolol LA [Inderal LA] 60 mg PO DAILY 06/12/18 06/12/18 History Allergies Allergy/AdvReac Type Severity Reaction Status Date / Time butorphanol tartrate Allergy drop in bp Verified 06/12/18 17:07 [From Stadol] and increases resp rate celecoxib [From Celebrex] Allergy Itching in Verified 06/12/18 17:07 mouth and throat ciprofloxacin HCl Allergy Nausea & Verified 06/12/18 17:07 [From Cipro] Vomiting and headache codeine Allergy Nausea & Verified 06/12/18 17:07 Vomiting fentanyl Allergy Nausea & Verified 06/12/18 17:07 Vomiting hydrocodone bitartrate Allergy Nausea & Verified 06/12/18 17:07 [From Vicodin] Vomiting hydromorphone HCl Allergy Nausea & Verified 06/12/18 17:07 [From Dilaudid] Vomiting indomethacin sodium Allergy headache Verified 06/12/18 17:07 [From Indocin] meperidine HCl [From Demerol] Allergy headache Verified 06/12/18 17:07 methylprednisolone Allergy Unknown Verified 06/12/18 17:07 [From Medrol] metronidazole [From Flagyl] Allergy Unknown Verified 06/12/18 17:07 morphine Allergy Nausea & Verified 06/12/18 17:07 Vomiting oxycodone HCl [From Percodan] Allergy Nausea & Verified 06/12/18 17:07 Vomiting pentazocine lactate Allergy Unknown Verified 06/12/18 17:07 [From Talwin] propoxyphene HCl Allergy Unknown Verified 06/12/18 17:07 [From Darvon] Sulfa (Sulfonamide Allergy Nausea & Verified 06/12/18 17:07 Antibiotics) Vomiting Tetanus Vaccines and Toxoid Allergy Rash/Hives Verified 06/12/18 17:07 [Tetanus Vaccines & Toxoid] and itching tramadol Allergy Nausea & Verified 06/12/18 17:07 Vomiting & Diarrhea and headache Physical Exam Osteopathic Statement: *. No significant issues noted on an osteopathic structural exam other than those noted in the History and Physical/Consult. Vitals: Vital Signs Temp Pulse Pulse Resp BP BP Pulse Ox 06/13/18 12:13 60 06/13/18 12:02 60 10/17/18 12:00 97.7 F 60 18 142/73 95 06/13/18 11:35 53 L 18 06/13/18 08:32 60 06/13/18 08:19 56 L 06/13/18 08:00 98.1 F 53 L 18 138/65 96 06/13/18 04:00 58 L 16 111/60 93 L 06/13/18 00:00 97.5 F L 64 16 107/67 96 06/12/18 22:04 96.9 F L 60 16 168/79 95 06/12/18 21:10 97.9 F 65 18 122/75 96 06/12/18 21:04 68 06/12/18 20:54 68 06/12/18 20:30 68 15 134/76 95 06/12/18 20:20 62 21 95 06/12/18 20:10 61 20 96 06/12/18 20:00 61 18 125/62 94 L 06/12/18 19:50 56 L 18 125/62 95 06/12/18 19:40 58 L 12 125/62 95 06/12/18 19:30 53 L 11 L 125/62 96 06/12/18 19:10 60 18 125/62 95 06/12/18 18:20 53 L 18 143/76 96 06/12/18 18:08 66 06/12/18 18:00 56 L 18 169/88 96 06/12/18 17:59 66 06/12/18 17:50 56 L 5 L 169/88 96 06/12/18 17:40 51 L 6 L 169/88 96 06/12/18 17:30 62 18 169/88 96 06/12/18 16:50 23 96 06/12/18 16:49 97 06/12/18 16:43 97 F L 66 18 170/92 96 Intake and Output 06/12/18 06/13/18 06/13/18 22:59 06:59 14:59 Intake Total 40 238.56 496.749 Balance 40 238.56 496.749 Intake: Intake, IV Titration 40 238.56 156.749 Amount Heparin Sod,Pork in 0.45% 238.56 156.749 NaCl 25,000 unit In 0.45 % NaCl 1 500ml.bag @ 18 UNITS/KG/HR 28.57 mls/hr IV .[id number] [facility] Rx#: [id number] Sodium Chloride 0.9% 1, 40 000 ml @ 20 mls/hr IV . Q24H [facility] Rx#:[id number] Oral 340 Other: Voiding Method Toilet # Voids 1 1 Weight 79.379 kg 79.6 kg No acute distress, oriented 3. No acute respiratory distress. No audible wheezing. No use of accessory muscles. HEENT examination is grossly unremarkable. Mucous membranes are moist. No oral lesions. Neck supple. Full range of motion. No adenopathy thyromegaly or neck vein distention. Cardiovascular examination reveals regular rhythm rate. S1-S2 normal. No S3 or S4. No discernible murmur noted. Lungs reveal mostly clear breath sounds on normal respiratory effort. On forced maneuver, the patient coughs and wheezes. Breath sounds are very coarse on forced maneuver. There is prolongation on forced maneuver. No crackles. Breath sounds are diminished throughout but equal bilaterally.. Abdomen soft bowel sounds are heard. No masses or tenderness. Extremities are intact. No cyanosis clubbing or edema. Skin is without rash or lesion. Neurologic examination is brief but nonfocal. Results - Laboratory Findings CBC and BMP: 06/12/18 17:13 06/12/18 17:13 PT/INR, D-dimer PT 11.8 sec (9.0-12.0) 06/12/18 17:13 INR 1.2 (<1.2) H 06/12/18 17:13 Abnormal lab findings: Abnormal Labs 06/12/18 06/12/18 06/13/18 17:13 17:13 02:58 INR 1.2 H APTT >200.0 H* Chloride 109 H BUN 20 H 06/13/18 11:27 INR APTT >200.0 H* Chloride BUN - Diagnostic Findings Chest x-ray: report reviewed (Chest x-ray, labs, and medications are reviewed.) , image reviewed Assessment and Plan Assessment: Assessment Shortness of breath, likely related to an underlying asthma exacerbation. I don 't believe she has significant pulmonary embolism at this time. Also, cardiac evaluation including catheterization and echocardiogram recently were normal. History of DVT and PE History of fibromyalgia History of hyperlipidemia History of hypertension History of DJD History of degenerative disc disease Plan: Plan dated 06/13/2018 I believe the patient shortness of breath primarily relates an asthma exacerbation based on her history and physical examination. I don't suspect a pulmonary embolism as the etiology of her problems. Not to mention the fact, the patient has been on Xarelto and has been taking it on a regular bases at 20 mg a day. We are going to hit this patient hard with steroids and all the usual asthma medications to see if we can get her turned around. Additional recommendations and suggestions are forthcoming. Labs x-rays a medications are all reviewed. CBC is entirely normal. Her sodium and potassium are normal. Chlorides 109. CO2 23. BUN 20 and creatinine 0.55. Troponins were negative 3. Chest x-rays reviewed and found to be normal. Recent computed tomography scan done at [facility] was reviewed as well. Time with Patient: Greater than 30
[2018-06-13] MEDS: methylPREDNISolone SOD SUCCI 125 MG/2 ML VIAL IV SCH (17:28)
[2018-06-13] MEDS: RIVAROXABAN 20 MG TAB PO SCH (17:28)
[2018-06-13] MEDS: BUDESONIDE 1 MG/2 ML NEBU INHALATION SCH (19:31)
[2018-06-13] MEDS: FORMOTEROL FUMARATE 20 MCG/2 ML NEBU INHALATION SCH (19:31)
[2018-06-13] MEDS ORDERED: IPRATROPIUM-ALBUTEROL 3 ML NEB INHALATION PRN (19:38)
[2018-06-13] MEDS: SODIUM CHLORIDE 0.9% 1,000 ML IV SCH (20:36)
[2018-06-14] MEDS: methylPREDNISolone SOD SUCCI 125 MG/2 ML VIAL IV SCH ×5 (00:24→23:05)
[2018-06-14] MEDS: PANTOPRAZOLE 40 MG TABLET PO SCH (06:22)
[2018-06-14] MEDS: IPRATROPIUM-ALBUTEROL 3 ML NEB INHALATION SCH ×4 (07:39→19:45)
[2018-06-14] MEDS: FORMOTEROL FUMARATE 20 MCG/2 ML NEBU INHALATION SCH ×2 (07:40→19:45)
[2018-06-14] MEDS: BUDESONIDE 1 MG/2 ML NEBU INHALATION SCH ×2 (07:40→19:45)
[2018-06-14] MEDS: ATORVASTATIN 10 MG TAB PO SCH (09:18)
[2018-06-14] MEDS: PREGABALIN 100 MG CAP PO SCH ×3 (09:18→21:13)
[2018-06-14] MEDS: CALCIUM CARBONATE 500 MG CHEWABLE PO SCH ×2 (09:18→21:13)
[2018-06-14] MEDS: LISINOPRIL 5 MG TAB PO SCH (09:18)
[2018-06-14] MEDS: LORATADINE 10 MG TAB PO SCH (09:18)
[2018-06-14] MEDS: AZITHROMYCIN 500 MG TAB PO SCH (09:19)
[2018-06-14] MEDS: MONTELUKAST 10 MG TAB PO SCH (09:19)
--- NOTE | 2018-06-14 11:35 | P.PN ---
Subjective Progress Note Date: 06/14/18 Principal diagnosis: Shortness of breath This is a pleasant 67-year-old female patient with a past medical history significant for hypertension and dyslipidemia was sent directly from her primary care physician office to the hospital for further evaluation off shortness of breath and presyncope. For the last 4 weeks, she has been experiencing progressive exertional dyspnea without orthopnea and without any PND. The patient stated that the shortness of breath was getting worse even walking from one room to another room at home enough to make her short of breath. The patient does not have any baseline shortness of breath with exertion before her symptoms started about 4 weeks ago. She does have asthma and also she does have history of PE she is on oral anticoagulation since 2013. Beside that the patient describes chest discomfort , as a tightness across the chest, without any radiation. Yesterday the patient was seen at her primary care physician office and she was quite short of breath and because of that she was sent to have a computed tomography scan of the chest which showed possible PE. An echocardiogram was performed recently as an outpatient and revealed normal LV function with impaired relaxation of the left ventricle or stage I diastolic dysfunction and without any significant valvular abnormalities. Because the patient was quite short of breath yesterday and she was having presyncope she was sent to the hospital for further evaluation and management. The EKG showed sinus rhythm without any significant ST or T-wave abnormalities. The chest x-ray did not show any acute abnormalities. The BNP came in to be within normal limits. The CBC and BNP came in to be within normal limits. 2 sets of troponin were checked and came in to be unremarkable. I did review the echocardiogram which was performed at [facility] and also the computed tomography scan as well. Please note that the patient underwent a heart catheterization in 2016 and that revealed no evidence of severe underlying coronary artery disease. She has been maintaining normal sinus mechanism. I'll follow-up with the patient today, 06/14/2018, she is feeling better internal shortness of breath. She was seen and evaluated by the pulmonary service who diagnosed the patient with asthma. She has been treated for asthma for the last 24 hours and she is feeling better internal shortness of breath. Again course the patient to get up and around and walk. Possible discharge in the next 24 hours. Objective - Vital Signs Vital signs: Vital Signs Temp 97.5 F L 06/13/18 20:00 Pulse 83 10/18/18 08:40 Resp 18 06/14/18 08:40 BP 143/86 06/14/18 08:40 Pulse Ox 97 06/14/18 08:40 Intake & Output 06/13/18 06/14/18 06/14/18 18:59 06:59 18:59 Intake Total 736.749 240 Balance 736.749 240 Weight 79.1 kg Intake: Intake, IV Titration 156.749 Amount Heparin Sod,Pork in 0.45% 156.749 NaCl 25,000 unit In 0.45 % NaCl 1 500ml.bag @ 18 UNITS/KG/HR 28.57 mls/hr IV .[id number] [facility] Rx#: [id number] Oral 580 240 Other: Voiding Method Toilet # Voids 1 - Constitutional General appearance: Present: no acute distress - Respiratory Respiratory: bilateral: CTA - Cardiovascular Rhythm: regular Heart sounds: normal: S1, S2 - Labs CBC & Chem 7: 06/12/18 17:13 06/12/18 17:13 Labs: Abnormal Lab Results - Last 24 Hours (Table) 06/13/18 Range/Units 11:27 APTT >200.0 H* (22.0-30.0) sec Assessment and Plan Assessment: Assessment #1 exertional dyspnea without orthopnea or PND. No lower extremities edema. #2 possible pulmonary embolism in on a recent computed tomography scan of the chest in a patient who is known to have PE currently on oral anticoagulation. #3 diastolic dysfunction of the left ventricle, stage I, the patient currently is in euvolemic #4 systemic hypertension #5 hypertensive heart disease #6 asthma Plan #1 continue the current medical regimen #2 possible discharge in the next 24 hours Thank you for allowing us participate in her care.
[2018-06-14] MEDS: PROPRANOLOL LA 60 MG CAP.SA.24H PO SCH (11:48)
--- NOTE | 2018-06-14 13:02 | P.PN ---
Subjective Progress Note Date: 06/14/18 Principal diagnosis: Shortness of breath, related to acute asthma exacerbation Pulmonary consultation dated 06/13/2018 67-year-old female who presented to the emergency department on June 12 complaints of shortness of breath. She states that the shortness of breath is been on and off now for a number of weeks. In addition, she does have a cough. She states that she was almost ready to pass out she was so short of breath. She recently had a echocardiogram which was essentially unremarkable save for some mild mitral regurgitation. She recently also had a CT angiogram the chest which possibly showed some very peripheral small pulmonary emboli. She does have a history of chronic bronchial asthma. She also she had a cardiac catheter couple years ago which was normal. She denies any wheezing. Her cough is mostly nonproductive. She denies any fever or chills. She denies any nausea vomiting or diarrhea. I spoke to the primary about this patient. The patient has been on Xarelto. In addition to asthma, the patient has a previous history of deep venous thrombosis pulmonary embolism fibromyalgia hyperlipidemia hypertension DJD and pneumonia. She also has a history of degenerative disc disease and some orthopedic not orthopedic surgical procedures. On 06/14/2018 patient seen in follow-up on selective care unit. She reports breathing easier today, feeling better. Signs are stable, patient is afebrile, room air pulse ox is 97%. Lung sounds are coarse, no significant wheezing noted on today's exam. 3 sets of cardiac enzymes and troponins have been negative, no complaints of chest pain. Patient is responding well to treatments , remains on empiric antibiotics in the form of Zithromax, nebulized bronchodilators, Pulmicort and Perforomist, Singulair, and IV steroids. Objective - Vital Signs Vital signs: Vital Signs Temp 97.5 F L 06/13/18 20:00 Pulse 70 06/14/18 11:52 Resp 18 06/14/18 08:40 BP 143/86 06/14/18 08:40 Pulse Ox 97 06/14/18 08:40 Intake & Output 06/13/18 06/14/18 06/14/18 18:59 06:59 18:59 Intake Total 736.749 240 Balance 736.749 240 Weight 79.1 kg Intake: Intake, IV Titration 156.749 Amount Heparin Sod,Pork in 0.45% 156.749 NaCl 25,000 unit In 0.45 % NaCl 1 500ml.bag @ 18 UNITS/KG/HR 28.57 mls/hr IV .[id number] [facility] Rx#: [id number] Oral 580 240 Other: Voiding Method Toilet # Voids 1 - Exam No acute distress, oriented 3. No acute respiratory distress. No audible wheezing. No use of accessory muscles. HEENT examination is grossly unremarkable. Mucous membranes are moist. No oral lesions. Neck supple. Full range of motion. No adenopathy thyromegaly or neck vein distention. Cardiovascular examination reveals regular rhythm rate. S1-S2 normal. No S3 or S4. No discernible murmur noted. Lungs reveal mostly clear breath sounds on normal respiratory effort. Breath sounds are very coarse on forced maneuver, however improved compared to yesterday's exam.. There is prolongation on forced maneuver. No crackles. Breath sounds are diminished throughout but equal bilaterally.. Abdomen soft bowel sounds are heard. No masses or tenderness. Extremities are intact. No cyanosis clubbing or edema. Skin is without rash or lesion. Neurologic examination is brief but nonfocal. - Labs CBC & Chem 7: 06/12/18 17:13 06/12/18 17:13 Assessment and Plan Plan: Shortness of breath, likely related to an underlying asthma exacerbation. I don 't believe she has significant pulmonary embolism at this time. Also, cardiac evaluation including catheterization and echocardiogram recently were normal. History of DVT and PE History of fibromyalgia History of hyperlipidemia History of hypertension History of DJD History of degenerative disc disease Plan: Continue current medical treatment, patient is responding well to IV steroids, nebulized bronchodilators, Pulmicort, Perforomist, and empiric antibiotics. Anticipate further improvement, and possible discharge home in the next 24 hours I performed a history & physical examination of the patient and discussed their management with my nurse practitioner, Daniella Heller. I reviewed the nurse practitioner's note and agree with the documented findings and plan of care. Lung sounds are positive for coarse breath sounds. The findings and the impression was discussed with the patient. I attest to the documentation by the nurse practitioner. Time with Patient: Less than 30
--- NOTE | 2018-06-14 13:16 | P.PN ---
Subjective Progress Note Date: 06/14/18 This is a 67-year-old female patient of Dr. Monroe and Dr. Lazar with a past medical history of asthma, DVT and pulmonary embolus diagnosed 4 years ago on Xarelto, fibromyalgia, hypertension, hyperlipidemia, left ventricular hypertrophy, diffuse osteoarthritis, ALLERGIC rhinitis, chronic back pain status post epidural injections. Patient recently underwent CAT scan of the chest that showed possible chronic pulmonary emboli and had an echocardiogram in the office that showed diastolic dysfunction and normal EF. She was in the office for an appointment and was sitting down, thought she was going to pass out and fall she couldn't walk to the car. EMS was called and she was brought into the hospital. She stated that she was feeling lightheaded and almost nauseated along with shortness of breath. She denies any cough or sputum production she denies any lower extremity edema. Bowel movements have been normal. She states that she feels like she is not getting enough breath. While at the office, a prescription for eliquis was sent in for the patient to start instead of Xarelto. She has history of a normal heart catheterization done in October [address] Dennison. Patient presented to [facility] emergency center, initial blood pressure was 170/92, she was afebrile. Heart rate running in the 50s and 60s. Troponin was negative, proBNP 123. EKG was a sinus bradycardia. Chest x- ray showed no acute cardiopulmonary disease. Patient was started on a heparin drip and admitted to the cardiac stepdown unit and consult requested with pulmonary medicine and after evaluation, cardiology consult requested regarding lightheadedness and near syncopal episode. Patient states that she did not get any sleep during the night as she was woken up about every hour and a half. She is complaining of headache this morning. She was on the phone with her son in time for less than 5 minutes to fall she was very short of breath. 06/14: Patient has been seen by Dr. Lazar and patient is thought to be short of breath secondary to an asthma attack and patient was started on nebulizer treatments, Pulmicort, azithromycin and IV Solu-Medrol. Heparin drip was discontinued and recommended the patient resume and continue Xarelto Patient states she has never had asthma attack in the past. She states she is feeling better today she denies any wheezing. She states she walked in her room and was feeling fine but then when she walked out in the hallway to the window she had to hang onto the railing and when she came back to her room she was a little short of breath and had some chest discomfort which went away and 5 minutes. Patient has been evaluated by Dr. Ludwig and dyspnea not secondary to heart failure and doubt underlying coronary artery disease. Troponins have been negative on 3 draws. Review Of Systems: Constitutional: No fever, no chills, no night sweats. EENT: No headache. No epistaxis. No sore throat. Lungs: No shortness of breath, cough, no sputum production. No wheezing. Cardiovascular: No chest pain, no lower extremity edema. No palpitations. No lightheadedness or dizziness. No syncopal episodes. Abdominal: No abdominal pain. No nausea, vomiting. No diarrhea. No constipation. No bloody or tarry stools. No loss of appetite. Genitourinary: No dysuria, increased frequency, urgency. No urinary retention. Musculoskeletal: No myalgias. No muscle weakness, no gait dysfunction, no frequent falls. No back pain. No neck pain. Integumentary: No wounds, no lesions. No rash or pruritus. Objective - Vital Signs Vital signs: Vital Signs Temp 97.5 F L 06/13/18 20:00 Pulse 76 06/14/18 08:10 Resp 18 06/14/18 04:00 BP 133/80 06/14/18 04:00 Pulse Ox 95 06/14/18 04:00 Intake & Output 06/13/18 06/14/18 06/14/18 18:59 06:59 18:59 Intake Total 736.749 240 Balance 736.749 240 Weight 79.1 kg Intake: Intake, IV Titration 156.749 Amount Heparin Sod,Pork in 0.45% 156.749 NaCl 25,000 unit In 0.45 % NaCl 1 500ml.bag @ 18 UNITS/KG/HR 28.57 mls/hr IV .[id number] [facility] Rx#: [id number] Oral 580 240 Other: Voiding Method Toilet # Voids 1 - Exam Gen: This is a overweight 67-year-old female. She is sitting up in bed and appears to be comfortable with no acute distress. HEENT: Head is atraumatic, normocephalic. Pupils equal, round. Sclerae is anicteric. Conjunctiva slightly pale. Mucous members of the mouth are slightly dry. NECK: Supple. No JVD. No lymphadenopathy. No thyromegaly. LUNGS: Clear to auscultation. No wheezes or rhonchi. No accessory muscle usage. No intercostal retractions. HEART: Regular rate and rhythm. Systolic ejection murmur. ABDOMEN: Soft. Bowel sounds are present. No masses. No tenderness. EXTREMITIES: No pedal edema. No calf tenderness. Dorsalis pedis palpable bilaterally. NEUROLOGICAL: Patient is awake, alert and oriented x3. Cranial nerves 2 through 12 are grossly intact. - Labs CBC & Chem 7: 06/12/18 17:13 06/12/18 17:13 Labs: Abnormal Lab Results - Last 24 Hours (Table) 06/13/18 Range/Units 11:27 APTT >200.0 H* (22.0-30.0) sec Assessment and Plan Plan: 1. Shortness of breath secondary to asthma exacerbation. Consults with Dr. Lazar and Dr. Ludwig are appreciated. Heparin drip was discontinued and patient resumed on Xarelto. Patient was started on DuoNeb treatments, Pulmicort, azathioprine azithromycin and IV Solu-Medrol at 60 mg every [address] Lazar. 2. Near syncopal episode. Consult with cardiology appreciated. Continue cardiac monitoring. 3. Hypertension hypertensive cardio vascular disease with left ventricular hypertrophy. Continue Inderal LA 60 mg daily, lisinopril 5 mg daily. 4. Hyperlipidemia. Continue Lipitor 10 mg daily. 5. Mild persistent asthma without exacerbation. Continue Singulair 10 mg daily , Symbicort, Zyrtec. 6. Chronic diastolic heart failure. Continue Inderal for heart rate control. Known EF is normal with left ventricular hypertrophy on recent echocardiogram done in the office. 7. Fibromyalgia. Continue Lyrica 100 mg 3 times daily, baclofen 10 mg 3 times daily as needed. 8. DVT prophylaxis. Heparin drip. 9. GI prophylaxis. Protonix. 10. CODE STATUS: Full code. Discharge plan: Return home tomorrow Impression and plan of care have been directed as dictated by the signing physician. Becky Wyman nurse practitioner acting as scribe for signing physician.
[2018-06-14] MEDS: CHOLECALCIFEROL 400 UNIT TAB PO SCH (13:17)
[2018-06-14] MEDS: ACETAMINOPHEN TAB 500 MG TAB PO PRN ×2 (15:00→21:16)
[2018-06-14] MEDS ORDERED: ONDANSETRON 4 MG/2 ML VIAL IVP PRN (17:11)
[2018-06-14] MEDS: RIVAROXABAN 20 MG TAB PO SCH (18:25)
[2018-06-14] MEDS: SODIUM CHLORIDE 0.9% 1,000 ML IV SCH (19:38)
[2018-06-15] MEDS: PANTOPRAZOLE 40 MG TABLET PO SCH (06:00)
[2018-06-15] MEDS: methylPREDNISolone SOD SUCCI 125 MG/2 ML VIAL IV SCH ×3 (06:00→15:50)
[2018-06-15] MEDS: IPRATROPIUM-ALBUTEROL 3 ML NEB INHALATION SCH ×3 (08:10→16:08)
[2018-06-15] MEDS: FORMOTEROL FUMARATE 20 MCG/2 ML NEBU INHALATION SCH (08:10)
[2018-06-15] MEDS: BUDESONIDE 1 MG/2 ML NEBU INHALATION SCH (08:10)
[2018-06-15] MEDS: LORATADINE 10 MG TAB PO SCH (09:21)
[2018-06-15] MEDS: LISINOPRIL 5 MG TAB PO SCH (09:21)
[2018-06-15] MEDS: ACETAMINOPHEN TAB 500 MG TAB PO PRN (09:21)
[2018-06-15] MEDS: ATORVASTATIN 10 MG TAB PO SCH (09:21)
[2018-06-15] MEDS: MONTELUKAST 10 MG TAB PO SCH (09:21)
[2018-06-15] MEDS: AZITHROMYCIN 500 MG TAB PO SCH (09:21)
[2018-06-15] MEDS: PREGABALIN 100 MG CAP PO SCH (09:21)
[2018-06-15] MEDS: PROPRANOLOL LA 60 MG CAP.SA.24H PO SCH (09:22)
[2018-06-15] MEDS: CALCIUM CARBONATE 500 MG CHEWABLE PO SCH (09:22)
[2018-06-15] MEDS: CHOLECALCIFEROL 400 UNIT TAB PO SCH (09:23)
[2018-06-15] MEDS: RIVAROXABAN 20 MG TAB PO SCH (09:24)
--- NOTE | 2018-06-15 10:17 | P.PN ---
Subjective Progress Note Date: 06/15/18 Principal diagnosis: Shortness of breath This is a pleasant 67-year-old female patient with a past medical history significant for hypertension and dyslipidemia was sent directly from her primary care physician office to the hospital for further evaluation off shortness of breath and presyncope. For the last 4 weeks, she has been experiencing progressive exertional dyspnea without orthopnea and without any PND. The patient stated that the shortness of breath was getting worse even walking from one room to another room at home enough to make her short of breath. The patient does not have any baseline shortness of breath with exertion before her symptoms started about 4 weeks ago. She does have asthma and also she does have history of PE she is on oral anticoagulation since 2013. Beside that the patient describes chest discomfort , as a tightness across the chest, without any radiation. Yesterday the patient was seen at her primary care physician office and she was quite short of breath and because of that she was sent to have a computed tomography scan of the chest which showed possible PE. An echocardiogram was performed recently as an outpatient and revealed normal LV function with impaired relaxation of the left ventricle or stage I diastolic dysfunction and without any significant valvular abnormalities. Because the patient was quite short of breath yesterday and she was having presyncope she was sent to the hospital for further evaluation and management. The EKG showed sinus rhythm without any significant ST or T-wave abnormalities. The chest x-ray did not show any acute abnormalities. The BNP came in to be within normal limits. The CBC and BNP came in to be within normal limits. 2 sets of troponin were checked and came in to be unremarkable. I did review the echocardiogram which was performed at [facility] and also the computed tomography scan as well. Please note that the patient underwent a heart catheterization in 2016 and that revealed no evidence of severe underlying coronary artery disease. She has been maintaining normal sinus mechanism. I'll follow with the patient today, June 152017, she is feeling much better in terms of shortness of breath but she has been nauseated and having headache as well. No dizziness or lightheadedness. From the cardiac vascular standpoint of view, the patient can be discharged home. Objective - Vital Signs Vital signs: Vital Signs Temp 97.8 F 06/15/18 00:00 Pulse 69 06/15/18 08:31 Resp 18 06/15/18 04:00 BP 142/66 06/15/18 04:00 Pulse Ox 97 06/15/18 04:00 Intake & Output 06/14/18 06/15/18 06/15/18 18:59 06:59 18:59 Intake Total 720 1440 200 Balance 720 1440 200 Weight 79.3 kg Intake: Oral 720 1440 200 Other: Voiding Method Toilet # Voids 2 3 # Bowel Movements 0 0 - Constitutional General appearance: Present: no acute distress - Respiratory Respiratory: bilateral: CTA - Cardiovascular Rhythm: regular Heart sounds: normal: S1, S2 - Labs CBC & Chem 7: 06/12/18 17:13 06/12/18 17:13 Assessment and Plan Assessment: Assessment #1 exertional dyspnea without orthopnea or PND. No lower extremities edema. #2 possible pulmonary embolism in on a recent computed tomography scan of the chest in a patient who is known to have PE currently on oral anticoagulation. #3 diastolic dysfunction of the left ventricle, stage I, the patient currently is in euvolemic #4 systemic hypertension #5 hypertensive heart disease #6 asthma Plan #1 continue the current medical regimen #2 possible discharge in the next 24 hours Thank you for allowing us participate in her care.
[2018-06-15 10:56] VITALS: TEMP 98
--- NOTE | 2018-06-15 11:35 | P.PN ---
Subjective Progress Note Date: 06/15/18 Principal diagnosis: Shortness of breath, related to acute asthma exacerbation Pulmonary consultation dated 06/13/2018 67-year-old female who presented to the emergency department on June 12 complaints of shortness of breath. She states that the shortness of breath is been on and off now for a number of weeks. In addition, she does have a cough. She states that she was almost ready to pass out she was so short of breath. She recently had a echocardiogram which was essentially unremarkable save for some mild mitral regurgitation. She recently also had a CT angiogram the chest which possibly showed some very peripheral small pulmonary emboli. She does have a history of chronic bronchial asthma. She also she had a cardiac catheter couple years ago which was normal. She denies any wheezing. Her cough is mostly nonproductive. She denies any fever or chills. She denies any nausea vomiting or diarrhea. I spoke to the primary about this patient. The patient has been on Xarelto. In addition to asthma, the patient has a previous history of deep venous thrombosis pulmonary embolism fibromyalgia hyperlipidemia hypertension DJD and pneumonia. She also has a history of degenerative disc disease and some orthopedic not orthopedic surgical procedures. On 06/14/2018 patient seen in follow-up on selective care unit. She reports breathing easier today, feeling better. Signs are stable, patient is afebrile, room air pulse ox is 97%. Lung sounds are coarse, no significant wheezing noted on today's exam. 3 sets of cardiac enzymes and troponins have been negative, no complaints of chest pain. Patient is responding well to treatments , remains on empiric antibiotics in the form of Zithromax, nebulized bronchodilators, Pulmicort and Perforomist, Singulair, and IV steroids. On 06/15/2018 patient seen in follow-up on selective care unit. Continues to improve, vital signs are stable. Room air pulse ox is 94%, no fever or chills. No chest pain, no chest congestion. Lung sounds are clear to auscultation bilaterally, no rhonchi, no wheezing noted. No new labs today. No new chest x- rays. Patient has been treated with combination of antibiotics, nebulized bronchodilators, IV steroids, Singulair, and responded well to treatments. She states she cannot take oral prednisone as it bothers her stomach, and she throws up. From pulmonary perspective patient has improved, and could be discharged home this afternoon, after her afternoon dose of Solu-Medrol on her Advair, Singulair. No need for oral steroids as the patient states she will not take them anyway. Objective - Vital Signs Vital signs: Vital Signs Temp 98 F 06/15/18 08:00 Pulse 69 06/15/18 08:31 Resp 17 06/15/18 08:00 BP 120/71 06/15/18 08:00 Pulse Ox 94 L 06/15/18 08:00 Intake & Output 06/14/18 06/15/18 06/15/18 18:59 06:59 18:59 Intake Total 720 1440 200 Balance 720 1440 200 Weight 79.3 kg Intake: Oral 720 1440 200 Other: Voiding Method Toilet # Voids 2 3 # Bowel Movements 0 0 - Exam No acute distress, oriented 3. No acute respiratory distress. No audible wheezing. No use of accessory muscles. HEENT examination is grossly unremarkable. Mucous membranes are moist. No oral lesions. Neck supple. Full range of motion. No adenopathy thyromegaly or neck vein distention. Cardiovascular examination reveals regular rhythm rate. S1-S2 normal. No S3 or S4. No discernible murmur noted. Lungs reveal mostly clear breath sounds on normal respiratory effort. There is prolongation on forced maneuver. No crackles. Breath sounds are diminished throughout but equal bilaterally.. Abdomen soft bowel sounds are heard. No masses or tenderness. Extremities are intact. No cyanosis clubbing or edema. Skin is without rash or lesion. Neurologic examination is brief but nonfocal. - Labs CBC & Chem 7: 06/12/18 17:13 06/12/18 17:13 Assessment and Plan Plan: Shortness of breath, likely related to an underlying asthma exacerbation. I don 't believe she has significant pulmonary embolism at this time. Also, cardiac evaluation including catheterization and echocardiogram recently were normal. History of DVT and PE History of fibromyalgia History of hyperlipidemia History of hypertension History of DJD History of degenerative disc disease Plan: Patient continues to improve, she can be discharged home from pulmonary perspective this afternoon after her afternoon dose of IV Solu-Medrol. No need for prednisone taper as the patient states she cannot tolerate them and will not take them anyway. Patient can be discharged home on Advair and Singulair. I'll up with Dr. Lazar in the office in one week. I performed a history & physical examination of the patient and discussed their management with my nurse practitioner, Daniella Heller. I reviewed the nurse practitioner's note and agree with the documented findings and plan of care. Lung sounds are clear. The findings and the impression was discussed with the patient. I attest to the documentation by the nurse practitioner. Time with Patient: Less than 30
[2018-06-15] MEDS: FERROUS SULFATE 325 MG TAB PO SCH (12:41)
--- NOTE | 2018-06-15 13:14 | P.DS ---
Providers Date of admission: 06/12/18 19:56 Expected date of discharge: 06/15/18 Attending physician: Gallo Monroe Consults: 06/12/18 19:56 Consult Physician Routine Consulting Provider: Radames Lazar Consult Reason/Comments: dyspnea, chronic PE Do you want consulting provider notified?: Yes 06/13/18 10:28 Consult Physician Routine Consulting Provider: Logan Ludwig Consult Reason/Comments: near syncope Do you want consulting provider notified?: Yes Primary care physician: Gallo Monroe Hospital Course: This is a 67-year-old female patient of Dr. Monroe and Dr. Lazar with a past medical history of asthma, DVT and pulmonary embolus diagnosed 4 years ago on Xarelto, fibromyalgia, hypertension, hyperlipidemia, left ventricular hypertrophy, diffuse osteoarthritis, ALLERGIC rhinitis, chronic back pain status post epidural injections. Patient recently underwent CAT scan of the chest that showed possible chronic pulmonary emboli and had an echocardiogram in the office that showed diastolic dysfunction and normal EF. She was in the office for an appointment and was sitting down, thought she was going to pass out and fall she couldn't walk to the car. EMS was called and she was brought into the hospital. She stated that she was feeling lightheaded and almost nauseated along with shortness of breath. She denies any cough or sputum production she denies any lower extremity edema. Bowel movements have been normal. She states that she feels like she is not getting enough breath. While at the office, a prescription for eliquis was sent in for the patient to start instead of Xarelto. She has history of a normal heart catheterization done in October [address] Dennison. Patient presented to [facility] emergency center, initial blood pressure was 170/92, she was afebrile. Heart rate running in the 50s and 60s. Troponin was negative, proBNP 123. EKG was a sinus bradycardia. Chest x- ray showed no acute cardiopulmonary disease. Patient was started on a heparin drip and admitted to the cardiac stepdown unit and consult requested with pulmonary medicine and after evaluation, cardiology consult requested regarding lightheadedness and near syncopal episode. Patient states that she did not get any sleep during the night as she was woken up about every hour and a half. She is complaining of headache this morning. She was on the phone with her son in time for less than 5 minutes to fall she was very short of breath. 06/14: Patient has been seen by Dr. Lazar and patient is thought to be short of breath secondary to an asthma attack and patient was started on nebulizer treatments, Pulmicort, azithromycin and IV Solu-Medrol. Heparin drip was discontinued and recommended the patient resume and continue Xarelto Patient states she has never had asthma attack in the past. She states she is feeling better today she denies any wheezing. She states she walked in her room and was feeling fine but then when she walked out in the hallway to the window she had to hang onto the railing and when she came back to her room she was a little short of breath and had some chest discomfort which went away and 5 minutes. Patient has been evaluated by Dr. Ludwig and dyspnea not secondary to heart failure and doubt underlying coronary artery disease. Troponins have been negative on 3 draws. 06/15: Patient states that she her breathing is much improved. Dr. Herrera is recommended she stay for her 4 PM Solu-Medrol and discharged home. Patient initially did not want Solu-Medrol as it causes stomach problems but after further deliberation, patient decided that she would try taking the prednisone and if it caused her problems, she would discontinue. She states that the Solu- Medrol has caused her some headaches. No wheezing noted. Patient will be discharged home today in stable condition Discharge plan: 1. Shortness of breath secondary to asthma exacerbation. 2. Near syncopal episode. 3. Hypertension hypertensive cardio vascular disease with left ventricular hypertrophy. 4. Hyperlipidemia. 5. Mild persistent asthma. 6. Chronic diastolic heart failure. 7. Fibromyalgia. Discharge plan: home Impression and plan of care have been directed as dictated by the signing physician. Becky Wyman nurse practitioner acting as scribe for signing physician. Patient Condition at Discharge: Good Plan - Discharge Summary Discharge Rx Participant: No New Discharge Prescriptions: New Ferrous Sulfate [Iron (65 MG Elemental)] 325 mg PO MOWEFR tab predniSONE 0 mg PO DIRECTED #18 tab Continue Montelukast [Singulair] 10 mg PO DAILY Fluticasone/Salmeterol [Advair 500-50 Diskus] 1 puff INHALATION RT-BID Cholecalciferol [Vitamin D3] 400 unit PO DAILY Cetirizine HCl [Zyrtec] 10 mg PO DAILY Atorvastatin Calcium [Lipitor] 10 mg PO DAILY Rivaroxaban [Xarelto] 20 mg PO DAILY Meclizine [Antivert] 25 mg PO TID PRN PRN Reason: dizzyness Acetaminophen [Tylenol] 1,000 mg PO Q4-6H PRN PRN Reason: Mild To Moderate Pain Omeprazole [PriLOSEC] 40 mg PO DAILY Baclofen [Lioresal] 10 mg PO TID PRN PRN Reason: Muscle Spasm Iron 45mg 45 mg PO MOWEFR Lisinopril [Zestril] 5 mg PO DAILY Calcium Carbonate [Calcium] 600 mg PO BID Propranolol LA [Inderal LA] 60 mg PO DAILY Pregabalin [Lyrica] 100 mg PO TID Discharge Medication List Atorvastatin Calcium [Lipitor] 10 mg PO DAILY 08/03/14 [History] Cetirizine HCl [Zyrtec] 10 mg PO DAILY 08/03/14 [History] Cholecalciferol [Vitamin D3] 400 unit PO DAILY 08/03/14 [History] Fluticasone/Salmeterol [Advair 500-50 Diskus] 1 puff INHALATION RT-BID 08/03/14 [History] Montelukast [Singulair] 10 mg PO DAILY 08/03/14 [History] Meclizine [Antivert] 25 mg PO TID PRN 10/22/15 [History] Rivaroxaban [Xarelto] 20 mg PO DAILY 10/22/15 [History] Acetaminophen [Tylenol] 1,000 mg PO Q4-6H PRN 11/04/15 [History] Baclofen [Lioresal] 10 mg PO TID PRN 06/12/18 [History] Calcium Carbonate [Calcium] 600 mg PO BID 06/12/18 [History] Iron 45mg 45 mg PO MOWEFR 06/12/18 [History] Lisinopril [Zestril] 5 mg PO DAILY 06/12/18 [History] Omeprazole [PriLOSEC] 40 mg PO DAILY 06/12/18 [History] Pregabalin [Lyrica] 100 mg PO TID 06/12/18 [History] Propranolol LA [Inderal LA] 60 mg PO DAILY 06/12/18 [History] Ferrous Sulfate [Iron (65 MG Elemental)] 325 mg PO MOWEFR tab 06/15/18 [Rx] predniSONE 0 mg PO DIRECTED #18 tab 06/15/18 [Rx] Follow up Appointment(s)/Referral(s): Gallo Monroe MD [Primary Care Provider] - 06/20/18 11:00 am (Monday with INSURANCE ACCOUNT SPECIALIST) Radames Lazar DO [Doctor of Osteopathic Medicine] - 2 Weeks Discharge Disposition: HOME SELF-CARE
[2018-06-15 13:37] VITALS: BP 179/81; RESP 18
[2018-06-15 16:32] VITALS: PULSE 67
== END 2018-06-15 16:59 | disposition home or self-care (01) | DRG 202 ==
LOC: EC 16:42 → 3SCARD 19:56
PROVIDERS: ADMIT Internal Medicine; ATTEND Internal Medicine
DX: J45.31 Mild persistent asthma with (acute) exacerbation (principal); I27.82 Chronic pulmonary embolism; I50.32 Chronic diastolic (congestive) heart failure; E78.5 Hyperlipidemia, unspecified; I11.0 Hypertensive heart disease with heart failure; I34.0 Nonrheumatic mitral (valve) insufficiency; M79.7 Fibromyalgia; R09.02 Hypoxemia; Z77.22 Contact with and (suspected) exposure to environmental tobacco smoke (acute) (chronic); Z79.01 Long term (current) use of anticoagulants; Z79.899 Other long term (current) drug therapy; Z80.3 Family history of malignant neoplasm of breast; Z80.49 Family history of malignant neoplasm of other genital organs; Z83.3 Family history of diabetes mellitus; Z86.718 Personal history of other venous thrombosis and embolism; Z90.710 Acquired absence of both cervix and uterus; Z98.42 Cataract extraction status, left eye; Z98.41 Cataract extraction status, right eye; Z96.653 Presence of artificial knee joint, bilateral; Z79.51 Long term (current) use of inhaled steroids; Z88.1 Allergy status to other antibiotic agents; Z88.5 Allergy status to narcotic agent; Z88.7 Allergy status to serum and vaccine; Z88.2 Allergy status to sulfonamides; Z88.8 Allergy status to other drugs, medicaments and biological substances; R55 Syncope and collapse; G89.29 Other chronic pain; J30.9 Allergic rhinitis, unspecified
CPT/HCPCS: 36415; 71046; 80053; 82550; 82553; 83735; 83880; 84484; 85025; 85610; 85730; 93005; 94640; 94760; 96365; 96376; 99291

== ENCOUNTER 2018-09-05 10:12 | Emergency (ER) | payer MEDICARE, BC, OTHER ==
--- NOTE | 2018-09-05 10:42 | ED ---
General Adult HPI - General Stated complaint: Weakness Time Seen by Provider: 09/05/18 10:15 Source: RN notes reviewed - History of Present Illness Initial comments: This is a 67-year-old female who presents emergency Department with a past history significant for high blood pressure GERD and fibromyalgia. Patient comes in today because she said she went to the bathroom and was taking one of her pills on both of her legs felt really weak and she thought she might fall to the ground so she sat down on the toilet symptoms went away but she noticed that there was some tingling sensation in her left foot and though she can feel everything and move it fine she thought she should be checked out at the emergency department. Patient denies any chest pain difficulty breathing shortest breath per patient denies any palpitations. Patient denies any recent fever chills or cough per patient denies a headache patient denies lightheadedness dizziness or nursing about so. Patient denies any abdominal pain patient denies any nausea vomiting and diarrhea recently. Patient denies any dysuria hematuria urinary frequency. Patient denies any loss of sensation or focal weakness. - Related Data Home Medications Medication Instructions Recorded Confirmed Atorvastatin Calcium [Lipitor] 10 mg PO DAILY 08/03/14 06/12/18 Cetirizine HCl [Zyrtec] 10 mg PO DAILY 08/03/14 06/12/18 Cholecalciferol [Vitamin D3] 400 unit PO DAILY 08/03/14 06/12/18 Fluticasone/Salmeterol [Advair 1 puff INHALATION RT-BID 08/03/14 06/12/18 500-50 Diskus] Montelukast [Singulair] 10 mg PO DAILY 08/03/14 06/12/18 Meclizine [Antivert] 25 mg PO TID PRN 10/22/15 06/12/18 Rivaroxaban [Xarelto] 20 mg PO DAILY 10/22/15 06/12/18 Acetaminophen [Tylenol] 1,000 mg PO Q4-6H PRN 11/04/15 06/12/18 Baclofen [Lioresal] 10 mg PO TID PRN 06/12/18 06/12/18 Calcium Carbonate [Calcium] 600 mg PO BID 06/12/18 06/12/18 Lisinopril [Zestril] 5 mg PO DAILY 06/12/18 06/12/18 Omeprazole [PriLOSEC] 40 mg PO DAILY 06/12/18 06/12/18 Pregabalin [Lyrica] 100 mg PO TID 06/12/18 06/12/18 Propranolol LA [Inderal LA] 60 mg PO DAILY 06/12/18 06/12/18 Previous Rx's Medication Instructions Recorded Ferrous Sulfate [Iron (65 MG 325 mg PO MOWEFR tab 06/15/18 Elemental)] Allergies Allergy/AdvReac Type Severity Reaction Status Date / Time celecoxib [From Celebrex] Allergy Itching in Verified 09/05/18 11:49 mouth and throat methylprednisolone Allergy Unknown Verified 09/05/18 11:49 [From Medrol] metronidazole [From Flagyl] Allergy Unknown Verified 09/05/18 11:49 pentazocine lactate Allergy Unknown Verified 09/05/18 11:49 [From Talwin] propoxyphene HCl Allergy Unknown Verified 09/05/18 11:49 [From Darvon] Tetanus Vaccines and Toxoid Allergy Rash/Hives Verified 09/05/18 11:49 [Tetanus Vaccines & Toxoid] and itching butorphanol tartrate AdvReac drop in bp Verified 09/05/18 11:49 [From Stadol] and increases resp rate ciprofloxacin HCl AdvReac Nausea & Verified 09/05/18 11:49 [From Cipro] Vomiting and headache codeine AdvReac Nausea & Verified 09/05/18 11:49 Vomiting fentanyl AdvReac Nausea & Verified 09/05/18 11:49 Vomiting hydrocodone bitartrate AdvReac Nausea & Verified 09/05/18 11:49 [From Vicodin] Vomiting hydromorphone HCl AdvReac Nausea & Verified 09/05/18 11:49 [From Dilaudid] Vomiting indomethacin sodium AdvReac headache Verified 09/05/18 11:49 [From Indocin] meperidine HCl [From Demerol] AdvReac headache Verified 09/05/18 11:49 morphine AdvReac Nausea & Verified 09/05/18 11:49 Vomiting oxycodone HCl [From Percodan] AdvReac Nausea & Verified 09/05/18 11:49 Vomiting Sulfa (Sulfonamide AdvReac Nausea & Verified 09/05/18 11:49 Antibiotics) Vomiting tramadol AdvReac Nausea & Verified 09/05/18 11:49 Vomiting & Diarrhea and headache Review of Systems ROS Statement: Those systems with pertinent positive or pertinent negative responses have been documented in the HPI. ROS Other: All systems not noted in ROS Statement are negative. 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 She lives at home with her second . She does have history of secondhand smoke exposure 8+ years with her first . - Past Family History Sister(s) Additional Family Medical History / Comment(s): Patient has one sister with history of breast cancer. Patient has no brothers. Patient has one son with history of seasonal ALLERGIES. Mother Family Medical History: Cancer, Chest Pain / Angina, Hyperlipidemia, Osteoarthritis (OA) Additional Family Medical History / Comment(s): breast cancer 2x.-masectomy uterine cancer- hysterectomy. Mother at age 94 from sepsis, renal failure and history of chronic small bowel obstruction. Father Family Medical History: Dementia, Diabetes Mellitus Additional Family Medical History / Comment(s): Father at age 93 with history of dementia and diabetes General Exam - General Exam Comments Initial Comments: GENERAL: Patient is well-developed and well-nourished. Patient is nontoxic and well- hydrated and is in no acute distress. ENT: Neck is soft and supple. No significant lymphadenopathy is noted. Oropharynx is clear. Moist mucous membranes. Neck has full range of motion without eliciting any pain. There is no thyroid enlargement and no masses were felt. EYES: The sclera were anicteric and conjunctiva were pink and moist. Extraocular movements were intact and pupils were equal round and reactive to light. Eyelids were unremarkable. PULMONARY: Unlabored respirations. Good breath sounds bilaterally. No audible rales rhonchi or wheezing was noted. CARDIOVASCULAR: There is a regular rate and rhythm without any murmurs gallops or rubs. Patient has good DP pulses ABDOMEN: Soft and nontender with normal bowel sounds. No palpable organomegaly was noted. There is no palpable pulsatile mass. SKIN: Skin is clear with no lesions or rashes and otherwise unremarkable. NEUROLOGIC: Patient is alert and oriented x3. Cranial nerves II through XII are grossly intact. Motor and sensory are also intact. Normal speech, volume and content. Symmetrical smile. MUSCULOSKELETAL: Normal extremities with adequate strength and full range of motion. No lower extremity swelling or edema. No calf tenderness. LYMPHATICS: No significant lymphadenopathy is noted PSYCHIATRIC: Normal psychiatric evaluation. Course Vital Signs 09/05/18 09/05/18 10:52 11:04 Temperature 98.6 F Pulse Rate 60 Pulse Rate [ 59 L Sitting] Pulse Rate [ 67 Standing] Pulse Rate [ 63 Supine] Respiratory 16 Rate Blood Pressure 153/82 Blood Pressure 168/97 [Sitting] Blood Pressure 149/95 [Standing] Blood Pressure 154/85 [Supine] O2 Sat by Pulse 96 Oximetry Medical Decision Making - Medical Decision Making EKG shows sinus bradycardia with first-degree AV block at 51 bpm [place] interval 212 QRS 96 Q-T intervals 428 QTC is 394 per patient's EKG shows T-wave inversions in leads 3 and aVF which were seen on old EKG. To Chest x-ray shows no acute abnormality. Patient never had any objective deficits in sensation or strength. - Lab Data Result diagrams: 09/05/18 10:50 09/05/18 10:50 Lab Results 09/05/18 09/05/18 09/05/18 Range/Units 10:50 10:50 10:50 WBC 5.8 (3.8-10.6) k/uL RBC 4.58 (3.80-5.40) m/uL Hgb 13.9 (11.4-16.0) gm/dL Hct 42.1 (34.0-46.0) % MCV 92.0 (80.0-100.0) fL MCH 30.3 (25.0-35.0) pg MCHC 32.9 (31.0-37.0) g/dL RDW 13.5 (11.5-15.5) % Plt Count 164 (150-450) k/uL Neutrophils % 53 % Lymphocytes % 37 % Monocytes % 6 % Eosinophils % 2 % Basophils % 0 % Neutrophils # 3.1 (1.3-7.7) k/uL Lymphocytes # 2.1 (1.0-4.8) k/uL Monocytes # 0.3 (0-1.0) k/uL Eosinophils # 0.1 (0-0.7) k/uL Basophils # 0.0 (0-0.2) k/uL PT (9.0-12.0) sec INR (<1.2) APTT (22.0-30.0) sec Sodium 140 (137-145) mmol/L Potassium 4.0 (3.5-5.1) mmol/L Chloride 110 H (98-107) mmol/L Carbon Dioxide 25 (22-30) mmol/L Anion Gap 5 mmol/L BUN 15 (7-17) mg/dL Creatinine 0.62 (0.52-1.04) mg/dL Est GFR (CKD-EPI)AfAm >90 (>60 ml/min/1.73 sqM) Est GFR (CKD-EPI)NonAf >90 (>60 ml/min/1.73 sqM) Glucose 82 (74-99) mg/dL Plasma Lactic Acid Angel (0.7-2.0) mmol/L Calcium 8.9 (8.4-10.2) mg/dL Total Bilirubin 0.8 (0.2-1.3) mg/dL AST 25 (14-36) U/L ALT 23 (9-52) U/L Alkaline Phosphatase 53 (38-126) U/L Total Creatine Kinase 37 (30-135) U/L CK-MB (CK-2) 0.7 (0.0-2.4) ng/mL CK-MB (CK-2) Rel Index 1.9 Troponin I <0.012 (0.000-0.034) ng/mL Total Protein 5.7 L (6.3-8.2) g/dL Albumin 3.3 L (3.5-5.0) g/dL Urine Color Urine Appearance (Clear) Urine pH (5.0-8.0) Ur Specific [place] (1.001-1.035) Urine Protein (Negative) Urine Glucose (UA) (Negative) Urine Ketones (Negative) Urine Blood (Negative) Urine Nitrite (Negative) Urine Bilirubin (Negative) Urine Urobilinogen (<2.0) mg/dL Ur Leukocyte Esterase (Negative) 09/05/18 09/05/18 09/05/18 Range/Units 10:50 11:30 11:45 WBC (3.8-10.6) k/uL RBC (3.80-5.40) m/uL Hgb (11.4-16.0) gm/dL Hct (34.0-46.0) % MCV (80.0-100.0) fL MCH (25.0-35.0) pg MCHC (31.0-37.0) g/dL RDW (11.5-15.5) % Plt Count (150-450) k/uL Neutrophils % % Lymphocytes % % Monocytes % % Eosinophils % % Basophils % % Neutrophils # (1.3-7.7) k/uL Lymphocytes # (1.0-4.8) k/uL Monocytes # (0-1.0) k/uL Eosinophils # (0-0.7) k/uL Basophils # (0-0.2) k/uL PT 12.6 H (9.0-12.0) sec INR 1.2 H (<1.2) APTT 31.5 H (22.0-30.0) sec Sodium (137-145) mmol/L Potassium (3.5-5.1) mmol/L Chloride (98-107) mmol/L Carbon Dioxide (22-30) mmol/L Anion Gap mmol/L BUN (7-17) mg/dL Creatinine (0.52-1.04) mg/dL Est GFR (CKD-EPI)AfAm (>60 ml/min/1.73 sqM) Est GFR (CKD-EPI)NonAf (>60 ml/min/1.73 sqM) Glucose (74-99) mg/dL Plasma Lactic Acid Angel 1.0 (0.7-2.0) mmol/L Calcium (8.4-10.2) mg/dL Total Bilirubin (0.2-1.3) mg/dL AST (14-36) U/L ALT (9-52) U/L Alkaline Phosphatase (38-126) U/L Total Creatine Kinase (30-135) U/L CK-MB (CK-2) (0.0-2.4) ng/mL CK-MB (CK-2) Rel Index Troponin I (0.000-0.034) ng/mL Total Protein (6.3-8.2) g/dL Albumin (3.5-5.0) g/dL Urine Color Colorless Urine Appearance Clear (Clear) Urine pH 6.5 (5.0-8.0) Ur Specific [place] 1.003 (1.001-1.035) Urine Protein Negative (Negative) Urine Glucose (UA) Negative (Negative) Urine Ketones Negative (Negative) Urine Blood Negative (Negative) Urine Nitrite Negative (Negative) Urine Bilirubin Negative (Negative) Urine Urobilinogen <2.0 (<2.0) mg/dL Ur Leukocyte Esterase Negative (Negative) Disposition Clinical Impression: Left leg paresthesias Disposition: HOME SELF-CARE Condition: Good Is patient prescribed a controlled substance at d/c from ED?: No Referrals: Gallo Monroe MD [Primary Care Provider] - 1-2 days Time of Disposition: 12:40
[2018-09-05 10:57] VITALS: RESP 16
--- NOTE | 2018-09-05 11:11 | XR ---
EXAMINATION TYPE: XR chest 2V DATE OF EXAM: 09/05/2018 COMPARISON: 06/12/2018 HISTORY: Bilateral lower extremity weakness TECHNIQUE: Frontal and lateral views of the chest are obtained. FINDINGS: There is chronic right basilar atelectasis. No pleural effusion or pneumothorax is seen. N o pulmonary vascular congestion. Cardiomediastinal silhouette is enlarged. Osseous structures are rayna ssly intact with minimal multilevel degenerative changes of the thoracic spine. IMPRESSION: Cardiomegaly and chronic right basilar atelectasis with no acute cardiopulmonary process . No findings of decompensated congestive heart failure.
[2018-09-05 11:22] LABS: Basophils % (A) 0 %; Eosinophils # (A) 0.1 k/uL (0-0.7); Eosinophils % (A) 2 %; HCT 42.1 % (34.0-46.0); HGB 13.9 gm/dL (11.4-16.0); Lymphocytes # (A) 2.1 k/uL (1.0-4.8); Lymphocytes % (A) 37 %; MCH 30.3 pg (25.0-35.0); MCHC 32.9 g/dL (31.0-37.0); Monocytes # (A) 0.3 k/uL (0-1.0); Monocytes % (A) 6 %; Neutrophils # (A) 3.1 k/uL (1.3-7.7); Neutrophils % (A) 53 %; Platelet Count 164 k/uL (150-450); RBC 4.58 m/uL (3.80-5.40); RDW 13.5 % (11.5-15.5); WBC 5.8 k/uL (3.8-10.6)
[2018-09-05 11:27] LABS: ALT 23 U/L (9-52); AST 25 U/L (14-36); Albumin 3.3 g/dL (3.5-5.0); Alkaline Phosphatase 53 U/L (38-126); Anion Gap 5 mmol/L; Blood Urea Nitrogen 15 mg/dL (7-17); Calcium 8.9 mg/dL (8.4-10.2); Carbon Dioxide 25 mmol/L (22-30); Chloride 110 mmol/L (98-107); Glucose 82 mg/dL (74-99); Sodium 140 mmol/L (137-145); Total Bilirubin 0.8 mg/dL (0.2-1.3); Total Protein 5.7 g/dL (6.3-8.2)
[2018-09-05 11:50] LABS: INR 1.2 (<1.2); Partial Thromboplastin Time 31.5 sec (22.0-30.0); Prothrombin Time 12.6 sec (9.0-12.0)
[2018-09-05 11:56] LABS: Creatine Kinase 37 U/L (30-135)
[2018-09-05 11:57] LABS: Appearance,Urine Clear (Clear); Bilirubin,Urine Negative (Negative); Blood,Urine Negative (Negative); Color,Urine Colorless; Glucose,Urine (UA) Negative (Negative); Ketones,Urine Negative (Negative); Leukocyte Esterase,Urine Negative (Negative); Nitrite,Urine Negative (Negative); PH, Urine 6.5 (5.0-8.0); Protein,Urine Negative (Negative); Specific Gravity,Urine 1.003 (1.001-1.035); Urobilinogen,Urine <2.0 mg/dL (<2.0)
[2018-09-05 12:08] LABS: Creatine Kinase MB 0.7 ng/mL (0.0-2.4); Troponin I <0.012 ng/mL (0.000-0.034)
[2018-09-05 13:09] VITALS: BP 149/78; PULSE 60; TEMP 97.9
== END 2018-09-05 13:51 | disposition home or self-care (01) ==
LOC: EC 10:12
DX: R20.2 Paresthesia of skin (principal); R53.1 Weakness; I44.0 Atrioventricular block, first degree; J45.909 Unspecified asthma, uncomplicated; M79.7 Fibromyalgia; E78.5 Hyperlipidemia, unspecified; I10 Essential (primary) hypertension; K21.9 Gastro-esophageal reflux disease without esophagitis; Z86.718 Personal history of other venous thrombosis and embolism; Z86.711 Personal history of pulmonary embolism; Z96.653 Presence of artificial knee joint, bilateral; Z79.51 Long term (current) use of inhaled steroids; Z79.01 Long term (current) use of anticoagulants; Z79.899 Other long term (current) drug therapy; Z88.6 Allergy status to analgesic agent; Z88.8 Allergy status to other drugs, medicaments and biological substances; Z88.1 Allergy status to other antibiotic agents; Z88.5 Allergy status to narcotic agent; Z88.7 Allergy status to serum and vaccine; Z88.2 Allergy status to sulfonamides
CPT/HCPCS: 36415; 71046; 80053; 81003; 82550; 82553; 83605; 84484; 85025; 85610; 85730; 93005; 99285

== ENCOUNTER 2019-06-28 16:59 | Observation (INO) | payer MEDICARE, BC, OTHER ==
[2019-06-28] MEDS ORDERED: methylPREDNISolone SOD SUCCI 125 MG/2 ML VIAL IV STA (17:41)
[2019-06-28] MEDS ORDERED: IPRATROPIUM-ALBUTEROL 3 ML NEB INHALATION STA (17:41)
--- NOTE | 2019-06-28 17:50 | ED ---
SOB HPI - General Chief Complaint: Shortness of Breath Stated Complaint: NAHID Time Seen by Provider: 06/28/19 17:02 Source: EMS, RN notes reviewed, old records reviewed Mode of arrival: EMS Limitations: physical limitation - History of Present Illness Initial Comments: This is a 68-year-old female the ER for evaluation of cough and congestion shortness of breath. Patient saw family doctor 2 days ago and was diagnosed with possible aspiration pneumonia patient unsure of diagnosis she has a normal chest x-ray which she got that same day. Patient has history of asthma hospitalization about a year ago for pneumonia. Otherwise no sick contacts no travel history. Patient states she's been increasingly weak since her diagnosis she is taking antibiotic Suboxone as prescribed. No nausea vomiting diarrhea states her appetite has been well. No recent change in medications otherwise MD Complaint: shortness of breath, cough -: days(s) Radiation: other (No pain) Severity: moderate (Worse with exertion) Severity scale (1-10): 3 (No real shortness of breath sitting still) Quality: other (No pain) Consistency: intermittent Improves With: rest Worsens With: exertion Known History Of: asthma, aspiration pneumonia Context: recent URI Associated Symptoms: denies other symptoms - Related Data Home Medications Medication Instructions Recorded Confirmed Atorvastatin Calcium [Lipitor] 10 mg PO DAILY 08/03/14 06/12/18 Cetirizine HCl [Zyrtec] 10 mg PO DAILY 08/03/14 06/12/18 Cholecalciferol [Vitamin D3] 400 unit PO DAILY 08/03/14 06/12/18 Fluticasone/Salmeterol [Advair 1 puff INHALATION RT-BID 08/03/14 06/12/18 500-50 Diskus] Montelukast [Singulair] 10 mg PO DAILY 08/03/14 06/12/18 Meclizine [Antivert] 25 mg PO TID PRN 10/22/15 06/12/18 Rivaroxaban [Xarelto] 20 mg PO DAILY 10/22/15 06/12/18 Acetaminophen [Tylenol] 1,000 mg PO Q4-6H PRN 11/04/15 06/12/18 Baclofen [Lioresal] 10 mg PO TID PRN 06/12/18 06/12/18 Calcium Carbonate [Calcium] 600 mg PO BID 06/12/18 06/12/18 Lisinopril [Zestril] 5 mg PO DAILY 06/12/18 06/12/18 Omeprazole [PriLOSEC] 40 mg PO DAILY 06/12/18 06/12/18 Pregabalin [Lyrica] 100 mg PO TID 06/12/18 06/12/18 Propranolol LA [Inderal LA] 60 mg PO DAILY 06/12/18 06/12/18 Previous Rx's Medication Instructions Recorded Ferrous Sulfate [Iron (65 MG 325 mg PO MOWEFR tab 06/15/18 Elemental)] Allergies Allergy/AdvReac Type Severity Reaction Status Date / Time celecoxib [From Celebrex] Allergy Itching in Verified 09/05/18 11:49 mouth and throat methylprednisolone Allergy Unknown Verified 09/05/18 11:49 [From Medrol] metronidazole [From Flagyl] Allergy Unknown Verified 09/05/18 11:49 pentazocine lactate Allergy Unknown Verified 09/05/18 11:49 [From Talwin] propoxyphene HCl Allergy Unknown Verified 09/05/18 11:49 [From Darvon] Tetanus Vaccines and Toxoid Allergy Rash/Hives Verified 09/05/18 11:49 [Tetanus Vaccines & Toxoid] and itching butorphanol tartrate AdvReac drop in bp Verified 09/05/18 11:49 [From Stadol] and increases resp rate ciprofloxacin HCl AdvReac Nausea & Verified 09/05/18 11:49 [From Cipro] Vomiting and headache codeine AdvReac Nausea & Verified 09/05/18 11:49 Vomiting fentanyl AdvReac Nausea & Verified 09/05/18 11:49 Vomiting hydrocodone bitartrate AdvReac Nausea & Verified 09/05/18 11:49 [From Vicodin] Vomiting hydromorphone HCl AdvReac Nausea & Verified 09/05/18 11:49 [From Dilaudid] Vomiting indomethacin sodium AdvReac headache Verified 09/05/18 11:49 [From Indocin] meperidine HCl [From Demerol] AdvReac headache Verified 09/05/18 11:49 morphine AdvReac Nausea & Verified 09/05/18 11:49 Vomiting oxycodone HCl [From Percodan] AdvReac Nausea & Verified 09/05/18 11:49 Vomiting Sulfa (Sulfonamide AdvReac Nausea & Verified 09/05/18 11:49 Antibiotics) Vomiting tramadol AdvReac Nausea & Verified 09/05/18 11:49 Vomiting & Diarrhea and headache Review of Systems ROS Statement: Those systems with pertinent positive or pertinent negative responses have been documented in the HPI. ROS Other: All systems not noted in ROS Statement are negative. 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 Patient has no brothers. Patient has one son with history of seasonal ALLERGIES. Mother Family Medical History: Cancer, Chest Pain / Angina, Hyperlipidemia, Osteoarthritis (OA) Additional Family Medical History / Comment(s): breast cancer 2x.-masectomy uterine cancer- hysterectomy. Mother at age 94 from sepsis, renal failure and history of chronic small bowel obstruction. Father Family Medical History: Dementia, Diabetes Mellitus Additional Family Medical History / Comment(s): Father at age 93 with history of dementia and diabetes General Exam Limitations: physical limitation General appearance: alert, in no apparent distress Head exam: Present: atraumatic, normocephalic, normal inspection Eye exam: Present: normal appearance, PERRL, EOMI. Absent: scleral icterus, conjunctival injection, periorbital swelling ENT exam: Present: normal exam, mucous membranes moist Neck exam: Present: normal inspection. Absent: tenderness, meningismus, lym phadenopathy Respiratory exam: Present: normal lung sounds bilaterally. Absent: respiratory distress, wheezes, rales, rhonchi, stridor Cardiovascular Exam: Present: regular rate, normal rhythm, normal heart sounds. Absent: systolic murmur, diastolic murmur, rubs, gallop, clicks GI/Abdominal exam: Present: soft, normal bowel sounds. Absent: distended, tenderness, guarding, rebound, rigid Extremities exam: Present: normal inspection, full ROM, normal capillary refill. Absent: tenderness, pedal edema, joint swelling, calf tenderness Back exam: Present: normal inspection Neurological exam: Present: alert, oriented X3, CN II-XII intact Psychiatric exam: Present: normal affect, normal mood Skin exam: Present: warm, dry, intact, normal color. Absent: rash Course Vital Signs 06/28/19 06/28/19 06/28/19 17:04 18:00 18:11 Temperature 98.4 F Pulse Rate 56 L 51 L 54 L Respiratory 18 Rate Blood Pressure 171/89 169/89 O2 Sat by Pulse 98 96 Oximetry 06/28/19 18:30 Temperature Pulse Rate Respiratory Rate Blood Pressure 154/88 O2 Sat by Pulse Oximetry - Reevaluation(s) Reevaluation #1: 06/28/19 17:49 Medical record is reviewed Reevaluation #2: 06/28/19 19:33 Patient with no improvement after breathing treatment - Consultations Consultation #1: spoke w Dr Knight who is agreeable for admission Medical Decision Making - Medical Decision Making 18 female the ER with asthma exacerbation, patient will be admitted for continued treatment. Treatments and monitoring of cardiopulmonary status - Lab Data Result diagrams: 06/28/19 18:14 06/28/19 18:14 Lab Results 06/28/19 06/28/19 06/28/19 Range/Units 18:14 18:14 18:14 WBC 7.6 (3.8-10.6) k/uL RBC 4.81 (3.80-5.40) m/uL Hgb 14.4 (11.4-16.0) gm/dL Hct 43.8 (34.0-46.0) % MCV 91.1 (80.0-100.0) fL MCH 29.9 (25.0-35.0) pg MCHC 32.8 (31.0-37.0) g/dL RDW 13.1 (11.5-15.5) % Plt Count 193 (150-450) k/uL Neutrophils % 66 % Lymphocytes % 25 % Monocytes % 5 % Eosinophils % 1 % Basophils % 1 % Neutrophils # 5.0 (1.3-7.7) k/uL Lymphocytes # 1.9 (1.0-4.8) k/uL Monocytes # 0.4 (0-1.0) k/uL Eosinophils # 0.1 (0-0.7) k/uL Basophils # 0.1 (0-0.2) k/uL PT (9.0-12.0) sec INR (<1.2) APTT (22.0-30.0) sec Sodium 139 (137-145) mmol/L Potassium 3.9 (3.5-5.1) mmol/L Chloride 108 H (98-107) mmol/L Carbon Dioxide 25 (22-30) mmol/L Anion Gap 6 mmol/L BUN 14 (7-17) mg/dL Creatinine 0.58 (0.52-1.04) mg/dL Est GFR (CKD-EPI)AfAm >90 (>60 ml/min/1.73 sqM) Est GFR (CKD-EPI)NonAf >90 (>60 ml/min/1.73 sqM) Glucose 108 H (74-99) mg/dL Calcium 9.5 (8.4-10.2) mg/dL Magnesium 2.2 (1.6-2.3) mg/dL Total Bilirubin 0.6 (0.2-1.3) mg/dL AST 26 (14-36) U/L ALT 21 (9-52) U/L Alkaline Phosphatase 79 (38-126) U/L Troponin I (0.000-0.034) ng/mL NT-Pro-B Natriuret Pep 148 pg/mL Total Protein 6.3 (6.3-8.2) g/dL Albumin 3.7 (3.5-5.0) g/dL 06/28/19 06/28/19 Range/Units 18:14 18:14 WBC (3.8-10.6) k/uL RBC (3.80-5.40) m/uL Hgb (11.4-16.0) gm/dL Hct (34.0-46.0) % MCV (80.0-100.0) fL MCH (25.0-35.0) pg MCHC (31.0-37.0) g/dL RDW (11.5-15.5) % Plt Count (150-450) k/uL Neutrophils % % Lymphocytes % % Monocytes % % Eosinophils % % Basophils % % Neutrophils # (1.3-7.7) k/uL Lymphocytes # (1.0-4.8) k/uL Monocytes # (0-1.0) k/uL Eosinophils # (0-0.7) k/uL Basophils # (0-0.2) k/uL PT 12.8 H (9.0-12.0) sec INR 1.2 H (<1.2) APTT 33.4 H (22.0-30.0) sec Sodium (137-145) mmol/L Potassium (3.5-5.1) mmol/L Chloride (98-107) mmol/L Carbon Dioxide (22-30) mmol/L Anion Gap mmol/L BUN (7-17) mg/dL Creatinine (0.52-1.04) mg/dL Est GFR (CKD-EPI)AfAm (>60 ml/min/1.73 sqM) Est GFR (CKD-EPI)NonAf (>60 ml/min/1.73 sqM) Glucose (74-99) mg/dL Calcium (8.4-10.2) mg/dL Magnesium (1.6-2.3) mg/dL Total Bilirubin (0.2-1.3) mg/dL AST (14-36) U/L ALT (9-52) U/L Alkaline Phosphatase (38-126) U/L Troponin I <0.012 (0.000-0.034) ng/mL NT-Pro-B Natriuret Pep pg/mL Total Protein (6.3-8.2) g/dL Albumin (3.5-5.0) g/dL - Radiology Data Radiology results: report reviewed (CHest x-rays negative for acute disease), image reviewed Disposition Clinical Impression: Asthma with status asthmaticus, Failure of outpatient treatment Disposition: ADMITTED IP TO THIS [facility] Condition: Fair Is patient prescribed a controlled substance at d/c from ED?: No Referrals: Gallo Monroe MD [Primary Care Provider] - 1-2 days
[2019-06-28 18:29] LABS: Basophils # (A) 0.1 k/uL (0-0.2); Basophils % (A) 1 %; Eosinophils # (A) 0.1 k/uL (0-0.7); Eosinophils % (A) 1 %; HCT 43.8 % (34.0-46.0); HGB 14.4 gm/dL (11.4-16.0); Lymphocytes # (A) 1.9 k/uL (1.0-4.8); Lymphocytes % (A) 25 %; MCH 29.9 pg (25.0-35.0); MCHC 32.8 g/dL (31.0-37.0); MCV 91.1 fL (80.0-100.0); Mean Platelet Volume 6.3; Monocytes # (A) 0.4 k/uL (0-1.0); Monocytes % (A) 5 %; Neutrophils % (A) 66 %; Platelet Count 193 k/uL (150-450); RBC 4.81 m/uL (3.80-5.40); RDW 13.1 % (11.5-15.5); WBC 7.6 k/uL (3.8-10.6)
[2019-06-28 18:38] LABS: INR 1.2 (<1.2); Partial Thromboplastin Time 33.4 sec (22.0-30.0); Prothrombin Time 12.8 sec (9.0-12.0)
[2019-06-28 18:39] LABS: ALT 21 U/L (9-52); AST 26 U/L (14-36); African American GFR (CKD) >90 (>60 ml/min/1.73 sqM); Albumin 3.7 g/dL (3.5-5.0); Alkaline Phosphatase 79 U/L (38-126); Anion Gap 6 mmol/L; Blood Urea Nitrogen 14 mg/dL (7-17); Calcium 9.5 mg/dL (8.4-10.2); Carbon Dioxide 25 mmol/L (22-30); Chloride 108 mmol/L (98-107); Glucose 108 mg/dL (74-99); Magnesium 2.2 mg/dL (1.6-2.3); Non-African American GFR(CKD) >90 (>60 ml/min/1.73 sqM); Potassium 3.9 mmol/L (3.5-5.1); Sodium 139 mmol/L (137-145); Total Bilirubin 0.6 mg/dL (0.2-1.3); Total Protein 6.3 g/dL (6.3-8.2)
[2019-06-28] MEDS: SODIUM CHLORIDE 0.9% 1,000 ML IV STA ×3 (18:41→21:12)
--- NOTE | 2019-06-28 19:05 | XR ---
EXAMINATION TYPE: XR chest 2V DATE OF EXAM: 06/28/2019 COMPARISON: 10/25/2018 HISTORY: Difficulty breathing TECHNIQUE: Frontal and lateral views of the chest are obtained. FINDINGS: Heart and mediastinum are within normal limits. Lungs are clear of consolidation. Costophr enic angles are clear. There are no hilar masses. Bony thorax is intact. IMPRESSION: No active cardiopulmonary disease. Normal heart. No change.
[2019-06-28] MEDS: SODIUM CHLORIDE 0.9% 1,000 ML IV SCH (21:12)
[2019-06-28] MEDS ORDERED: ATORVASTATIN 10 MG TAB PO SCH (22:00)
[2019-06-28] MEDS ORDERED: MONTELUKAST 10 MG TAB PO SCH (22:00)
[2019-06-28] MEDS ORDERED: LORATADINE 10 MG TAB PO SCH (22:00)
[2019-06-28] MEDS ORDERED: MECLIZINE 25 MG TAB PO PRN (22:15)
[2019-06-28] MEDS ORDERED: FERROUS SULFATE 325 MG TAB PO SCH (22:15)
[2019-06-28] MEDS: CALCIUM CARBONATE 500 MG CHEWABLE PO SCH (22:24)
[2019-06-28] MEDS: ACETAMINOPHEN TAB 500 MG TAB PO PRN (22:26)
[2019-06-28] MEDS: AMOXIC-POT CLAV 875-125MG 1 EACH TAB PO SCH (22:26)
[2019-06-28] MEDS: CHOLECALCIFEROL 1,000 UNIT TAB PO SCH (22:26)
[2019-06-28] MEDS: PREGABALIN 100 MG CAP PO SCH (22:27)
[2019-06-28] MEDS: methylPREDNISolone SOD SUCCI 125 MG/2 ML VIAL IV SCH (23:20)
[2019-06-28] MEDS: IPRATROPIUM-ALBUTEROL 3 ML NEB INHALATION SCH (23:38)
[2019-06-29] MEDS: methylPREDNISolone SOD SUCCI 125 MG/2 ML VIAL IV SCH ×2 (05:06→11:38)
[2019-06-29 06:47] LABS: Glucose,Whole Blood 135 mg/dL (75-99)
[2019-06-29] MEDS: SODIUM CHLORIDE 0.9% 1,000 ML IV SCH ×2 (07:12→11:31)
[2019-06-29] MEDS: INSULIN ASPART (NovoLOG) 100 UNIT/ML VIAL SQ SCH ×2 (07:14→11:31)
[2019-06-29] MEDS: ACETAMINOPHEN TAB 500 MG TAB PO PRN (07:15)
[2019-06-29] MEDS: IPRATROPIUM-ALBUTEROL 3 ML NEB INHALATION SCH ×3 (07:55→15:25)
[2019-06-29] MEDS: CALCIUM CARBONATE 500 MG CHEWABLE PO SCH (08:07)
[2019-06-29] MEDS: CHOLECALCIFEROL 1,000 UNIT TAB PO SCH (08:08)
[2019-06-29] MEDS: AMOXIC-POT CLAV 875-125MG 1 EACH TAB PO SCH (08:08)
[2019-06-29] MEDS: PREGABALIN 100 MG CAP PO SCH (08:08)
[2019-06-29 08:37] VITALS: BP 125/78; TEMP 97.7
[2019-06-29] MEDS ORDERED: PANTOPRAZOLE 40 MG TABLET PO SCH (09:00)
[2019-06-29] MEDS ORDERED: RIVAROXABAN 20 MG TAB PO SCH (09:00)
[2019-06-29] MEDS ORDERED: LISINOPRIL 5 MG TAB PO SCH (09:00)
[2019-06-29] MEDS ORDERED: PROPRANOLOL LA 60 MG CAP.SA.24H PO SCH (09:00)
[2019-06-29 11:30] LABS: Glucose,Whole Blood 145 mg/dL (75-99)
[2019-06-29] MEDS ORDERED: BUTALB/APAP/CAFF 50-325-40MG TAB PO PRN (11:30)
--- NOTE | 2019-06-29 12:57 | P.HPIM ---
History of Present Illness H&P Date: 06/29/19 Chief Complaint: Asthma exacerbation This is a 68-year-old female who presented to the ER with evaluation of cough and congestion and shortness of breath. Patient seen her primary care doctor 2 days ago and was diagnosed with possible aspiration pneumonia. Patient had a chest x-ray done at that day which was negative. Patient was started on Augmentin. Patient stated that the next day she started to feel better however the day after she became progressively weak with increased shortness of breath. Patient was unable to ambulate from the back into her chair without assistance. Patient called EMS to be transported to the emergency room. Patient denies any nausea, vomiting, diarrhea. Patient states that her appetite is normal. Patient's past medical history is significant for asthma, fibromyalgia, hyperlipidemia, hypertension, osteoarthritis, pulmonary embolism. Patient has been a nonsmoker. Review of Systems Review Of Systems: Constitutional: No fever, no chills, no night sweats. No weight change. No weakness, fatigue or lethargy. No daytime sleepiness. EENT: No headache. No blurred vision or double vision, no loss of vision. No loss of Hearing, no ringing in the ears, no dizziness. No nasal drainage or congestion. No epistaxis. No sore throat. Lungs: shortness of breath improved, no cough, no sputum production. No wheezing. Cardiovascular: No chest pain, no lower extremity edema. No palpitations. No paroxysmal nocturnal dyspnea. No orthopnea. No lightheadedness or dizziness. No syncopal episodes. Abdominal: no abdominal discomfort. No nausea, vomiting. no diarrhea. No constipation. No bloody or tarry stools. no loss of appetite. Genitourinary: No dysuria, increased frequency, urgency. No urinary retention. Musculoskeletal: No myalgias. No muscle weakness, no gait dysfunction, no frequent falls. No back pain. No neck pain. Integumentary: No wounds, no lesions. No rash or pruritus. No unusual bruising. No change in hair or nails. Neurologic: No aphasia. No facial droop. No change in mentation. No head injury. No headache. No paralysis. No paresthesia. Psychiatric: No depression. No anxiety. No mood swings. Endocrine: No abnormal blood sugars. No weight change. No excessive sweating or thirst. 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 She lives at home with her second . She does have history of secondhand smoke exposure 8+ years with her first . Past Drug Use History: None Reported - Past Family History Sister(s) Additional Family Medical History / Comment(s): Patient has one sister with history of breast cancer. Patient has no brothers. Patient has one son with history of seasonal ALLERGIES. Mother Family Medical History: Cancer, Chest Pain / Angina, Hyperlipidemia, Osteoarthritis (OA) Additional Family Medical History / Comment(s): breast cancer 2x.-masectomy uterine cancer- hysterectomy. Mother at age 94 from sepsis, renal failure and history of chronic small bowel obstruction. Father Family Medical History: Dementia, Diabetes Mellitus Additional Family Medical History / Comment(s): Father at age 93 with history of dementia and diabetes Medications and Allergies Home Medications Medication Instructions Recorded Confirmed Type Atorvastatin Calcium [Lipitor] 10 mg PO HS 08/03/14 06/28/19 History Cetirizine HCl [Zyrtec] 10 mg PO HS 08/03/14 06/28/19 History Montelukast [Singulair] 10 mg PO HS 08/03/14 06/28/19 History Meclizine [Antivert] 25 mg PO TID PRN 10/22/15 06/28/19 History Rivaroxaban [Xarelto] 20 mg PO DAILY 10/22/15 06/28/19 History Acetaminophen [Tylenol] 1,000 mg PO Q4-6H PRN 11/04/15 06/28/19 History Calcium Carbonate [Calcium] 600 mg PO BID 06/12/18 06/28/19 History Lisinopril [Zestril] 5 mg PO DAILY 06/12/18 06/28/19 History Omeprazole [PriLOSEC] 40 mg PO DAILY 06/12/18 06/28/19 History Pregabalin [Lyrica] 100 mg PO BID 06/12/18 06/28/19 History Propranolol LA [Inderal LA] 60 mg PO DAILY 06/12/18 06/28/19 History Ferrous Sulfate [Iron (65 MG 325 mg PO MOWEFR tab 06/15/18 06/28/19 Rx Elemental)] Cholecalciferol [Vitamin D3 (25 1,000 unit PO BID 06/28/19 06/28/19 History Mcg = 1000 Iu)] Fluticasone Propion/Salmeterol 1 puff INHALATION RT-BID 06/28/19 06/28/19 History [Wixela 500-50 Inhub] Azithromycin [Zithromax Z-pack] 250 mg PO DIRECTED #6 tab 06/29/19 Rx predniSONE 20 mg PO DAILY #18 tab 06/29/19 Rx Allergies Allergy/AdvReac Type Severity Reaction Status Date / Time celecoxib [From Celebrex] Allergy Itching in Verified 06/28/19 20:01 mouth and throat methylprednisolone Allergy Unknown Verified 06/28/19 20:01 [From Medrol] metronidazole [From Flagyl] Allergy Unknown Verified 06/28/19 20:01 pentazocine lactate Allergy Unknown Verified 06/28/19 20:01 [From Talwin] propoxyphene HCl Allergy Unknown Verified 06/28/19 20:01 [From Darvon] Tetanus Vaccines and Toxoid Allergy Rash/Hives Verified 06/28/19 20:01 [Tetanus Vaccines & Toxoid] and itching butorphanol tartrate AdvReac drop in bp Verified 06/28/19 20:01 [From Stadol] and increases resp rate ciprofloxacin HCl AdvReac Nausea & Verified 06/28/19 20:01 [From Cipro] Vomiting and headache codeine AdvReac Nausea & Verified 06/28/19 20:01 Vomiting fentanyl AdvReac Nausea & Verified 06/28/19 20:01 Vomiting hydrocodone bitartrate AdvReac Nausea & Verified 06/28/19 20:01 [From Vicodin] Vomiting hydromorphone HCl AdvReac Nausea & Verified 06/28/19 20:01 [From Dilaudid] Vomiting indomethacin sodium AdvReac headache Verified 06/28/19 20:01 [From Indocin] meperidine HCl [From Demerol] AdvReac headache Verified 06/28/19 20:01 morphine AdvReac Nausea & Verified 06/28/19 20:01 Vomiting oxycodone HCl [From Percodan] AdvReac Nausea & Verified 06/28/19 20:01 Vomiting Sulfa (Sulfonamide AdvReac Nausea & Verified 06/28/19 20:01 Antibiotics) Vomiting tramadol AdvReac Nausea & Verified 06/28/19 20:01 Vomiting & Diarrhea and headache Physical Exam Vitals: Vital Signs Temp Pulse Pulse Resp BP BP BP 06/29/19 12:00 74 18 06/29/19 11:34 68 06/29/19 11:24 68 06/29/19 08:07 70 06/29/19 08:00 97.7 F 74 18 125/78 06/29/19 07:56 66 06/29/19 04:00 70 18 06/29/19 03:56 97.5 F L 70 18 104/61 06/28/19 23:36 18 06/28/19 23:32 98.0 F 69 18 98/57 06/28/19 20:15 98.2 F 59 L 18 164/80 06/28/19 20:10 18 06/28/19 18:30 154/88 06/28/19 18:11 54 L 06/28/19 18:00 51 L 169/89 06/28/19 17:04 98.4 F 56 L 18 171/89 Pulse Ox 06/29/19 12:00 06/29/19 11:34 06/29/19 11:24 06/29/19 08:07 06/29/19 08:00 92 L 06/29/19 07:56 06/29/19 04:00 06/29/19 03:56 94 L 06/28/19 23:36 06/28/19 23:32 94 L 06/28/19 20:15 91 L 06/28/19 20:10 06/28/19 18:30 06/28/19 18:11 06/28/19 18:00 96 11/01/19 17:04 98 Intake and Output 06/28/19 06/29/19 06/29/19 22:59 06:59 14:59 Intake Total 480 960 Balance 480 960 Intake: Oral 480 960 Other: # Voids 1 2 Weight 79.379 kg General Appearance: Alert, cooperative, no distress, appears stated age. Neck HEENT: Supple, no lymphadenopathy, no thyroid enlargement, no carotid br uits. Lungs: Clear to auscultation without crackles or wheezes no rhonchi, no deformity. Chest Wall: Chest wall normal expansion with deep inspiration no tenderness and no deformity was found on exam, no costochondral pain or discomfort. Heart: Regular rate and rhythm, S1, S2 normal, no murmur, rub or gallop. Back: Symmetric, no curvature, ROM normal, no CVA tenderness. Abdomen: Soft, non-tender, no rebound or rigidity, no hepatosplenomegaly. Extremities: Extremities normal, atraumatic, no cyanosis or edema. Pulses: 2+ and symmetric. Skin: Skin color, texture, tugor normal, no rashes or lesions. Neurologic: Alert oriented x3 cranial nerves II through XII intact, no motor deficit, no abnormal balance or gait Results CBC & Chem 7: 06/28/19 18:14 06/28/19 18:14 Labs: Abnormal Lab Results - Last 24 Hours (Table) 06/28/19 06/28/19 06/29/19 Range/Units 18:14 18:14 06:45 PT 12.8 H (9.0-12.0) sec INR 1.2 H (<1.2) APTT 33.4 H (22.0-30.0) sec Chloride 108 H (98-107) mmol/L Glucose 108 H (74-99) mg/dL POC Glucose (mg/dL) 135 H (75-99) mg/dL 06/29/19 Range/Units 11:29 PT (9.0-12.0) sec INR (<1.2) APTT (22.0-30.0) sec Chloride (98-107) mmol/L Glucose (74-99) mg/dL POC Glucose (mg/dL) 145 H (75-99) mg/dL Thrombosis Risk Factor Assmnt - Choose All That Apply Each Risk Factor Represents 2 Points: Age 61-74 years Each Risk Factor Represents 3 Points: History of DVT/PE, Positive Prothrombin [id number] Other congenital or acquired thrombophilia - If yes, enter type in comment: No Thrombosis Risk Factor Assessment Total Risk Factor Score: 8 Thrombosis Risk Factor Assessment Level: High Risk Assessment and Plan Plan: 1. Asthma exacerbation. Pulmonary consult appreciated, IV Solu-Medrol, continue with taper dose of prednisone outpatient, continue with DuoNeb 2. Upper respiratory infection rule out pneumonia. Chest xray impression no active cardiopulmonary disease. Normal heart. No change. Discontinue Augmentin. Initiate empiric Z-Rd. Continue loratadine and Singulair 3. Hypertension. Continue lisinopril, propranolol 4. Hyperlipidemia. Continue atorvastatin 5. Fibromyalgia. Continue Lyrica 6. History of DVT, pulmonary embolism. Continue Xarelto 7. GI prophylaxis Protonix 40 mg by mouth daily 8. DVT prophylaxis. Continue Xarelto and ambulation Discharge plan: Discharge home today Impression and plan of care have been directed as dictated by the signing physician. Yazmin Bose nurse practitioner acting as scribe for signing physician.
--- NOTE | 2019-06-29 13:00 | P.DS ---
Providers Date of admission: 06/28/19 19:32 Attending physician: Lauren Knight MD Consults: 06/28/19 19:41 Consult Physician Routine Consulting Provider: Radames Lazar Consult Reason/Comments: asthma Do you want consulting provider notified?: Yes Primary care physician: Gallo Monroe [facility] Course: Chief Complaint: Asthma exacerbation This is a 68-year-old female who presented to the ER with evaluation of cough and congestion and shortness of breath. Patient seen her primary care doctor 2 days ago and was diagnosed with possible aspiration pneumonia. Patient had a chest x-ray done at that day which was negative. Patient was started on Augmentin. Patient stated that the next day she started to feel better however the day after she became progressively weak with increased shortness of breath. Patient was unable to ambulate from the back into her chair without assistance. Patient called EMS to be transported to the emergency room. Patient denies any nausea, vomiting, diarrhea. Patient states that her appetite is normal. Patient's past medical history is significant for asthma, fibromyalgia, hyperlipidemia, hypertension, osteoarthritis, pulmonary embolism. Patient has been a nonsmoker. Discharge diagnosis: 1. Asthma exacerbation. 2. Upper respiratory infection rule out pneumonia. 3. Hypertension. 4. Hyperlipidemia. 5. Fibromyalgia. 6. History of DVT, pulmonary embolism. Disposition: Home with self-care Impression and plan of care have been directed as dictated by the signing physician. Yazmin Bose nurse practitioner acting as scribe for signing physician. Patient Condition at Discharge: Fair Plan - Discharge Summary Discharge Rx Participant: No New Discharge Prescriptions: New predniSONE 20 mg PO DAILY #18 tab Azithromycin [Zithromax Z-pack] 250 mg PO DIRECTED #6 tab Continue Montelukast [Singulair] 10 mg PO HS Cetirizine HCl [Zyrtec] 10 mg PO HS Atorvastatin Calcium [Lipitor] 10 mg PO HS Rivaroxaban [Xarelto] 20 mg PO DAILY Meclizine [Antivert] 25 mg PO TID PRN PRN Reason: dizzyness Acetaminophen [Tylenol] 1,000 mg PO Q4-6H PRN PRN Reason: Mild To Moderate Pain Omeprazole [PriLOSEC] 40 mg PO DAILY Lisinopril [Zestril] 5 mg PO DAILY Calcium Carbonate [Calcium] 600 mg PO BID Propranolol LA [Inderal LA] 60 mg PO DAILY Pregabalin [Lyrica] 100 mg PO BID Ferrous Sulfate [Iron (65 MG Elemental)] 325 mg PO MOWEFR tab Cholecalciferol [Vitamin D3 (25 Mcg = 1000 Iu)] 1,000 unit PO BID Fluticasone Propion/Salmeterol [Wixela 500-50 Inhub] 1 puff INHALATION RT-BID Discontinued Amoxic-Pot Clav 875-125Mg [Augmentin 875-125] 1 tab PO Q12HR Discharge Medication List Atorvastatin Calcium [Lipitor] 10 mg PO HS 08/03/14 [History] Cetirizine HCl [Zyrtec] 10 mg PO HS 08/03/14 [History] Montelukast [Singulair] 10 mg PO HS 08/03/14 [History] Meclizine [Antivert] 25 mg PO TID PRN 10/22/15 [History] Rivaroxaban [Xarelto] 20 mg PO DAILY 10/22/15 [History] Acetaminophen [Tylenol] 1,000 mg PO Q4-6H PRN 11/04/15 [History] Calcium Carbonate [Calcium] 600 mg PO BID 06/12/18 [History] Lisinopril [Zestril] 5 mg PO DAILY 06/12/18 [History] Omeprazole [PriLOSEC] 40 mg PO DAILY 06/12/18 [History] Pregabalin [Lyrica] 100 mg PO BID 06/12/18 [History] Propranolol LA [Inderal LA] 60 mg PO DAILY 06/12/18 [History] Ferrous Sulfate [Iron (65 MG Elemental)] 325 mg PO MOWEFR tab 06/15/18 [Rx] Cholecalciferol [Vitamin D3 (25 Mcg = 1000 Iu)] 1,000 unit PO BID 06/28/19 [History] Fluticasone Propion/Salmeterol [Wixela 500-50 Inhub] 1 puff INHALATION RT-BID 06/28/19 [History] Azithromycin [Zithromax Z-pack] 250 mg PO DIRECTED #6 tab 06/29/19 [Rx] predniSONE 20 mg PO DAILY #18 tab 06/29/19 [Rx] Follow up Appointment(s)/Referral(s): Gallo Monroe MD [Primary Care Provider] - 1-2 days
[2019-06-29] MEDS ORDERED: ONDANSETRON 4 MG/2 ML VIAL IVP PRN (13:22)
[2019-06-29 15:28] VITALS: RESP 16
[2019-06-29 15:42] VITALS: PULSE 72
--- NOTE | 2019-06-29 16:01 | CONS ---
CONSULTATION PULMONARY/CRITICAL CARE CONSULTATION: DATE OF CONSULTATION: 06/29/2019 68-year-old female who sees Dr. Monroe as a primary. She was in to see him recently with a cough. She also developed some congestion, chest tightness, wheezing and shortness of breath. The patient was thought to have possible aspiration pneumonia but apparently the chest x-ray was normal. The patient does see me for her asthma. She had a similar episode about a year ago, which her asthma acting up and she required a number of days in the hospital with steroids and antibiotics. This morning, she looks much improved. This whole process has been going on for about 7 or 10 days. The patient apparently did aspirate some tea a number of days back. She thinks maybe that is what triggered her asthma to act up. Anyway, the patient is doing much better today. She still has some mild cough, wheezing and tightness. Feeling much better. I thought she might could be discharged in the next day or so and see me in the office in followup. MEDICATIONS: Her home medications are reviewed. She is on Lipitor, Zyrtec, vitamin D3, Advair, Singulair, Antivert, Xarelto, Tylenol, baclofen, calcium, Zestril, Prilosec, Lyrica, and propranolol. She is also taking iron. She does have a rescue inhaler, likely albuterol or ProAir or Ventolin. ALLERGIES: Numerous and include CELEBREX, STEROIDS, FLAGYL, TALWIN, DARVON AND TETANUS TOXOID. MEDICAL HISTORY: Reviewed. She has a history of asthma, DVT, fibromyalgia, hyperlipidemia, hypertension, DJD, pneumonia, pulmonary embolism. She also suffers from left ventricular hypertrophy, degenerative disk disease, migraine cephalgia, and sialolithiasis. She also has a tremor. SURGICAL HISTORY: Includes hysterectomy, two total knee replacements, cataract surgery, and heart catheterization. SOCIAL HISTORY: Negative for tobacco, alcohol or illicit drug use. FAMILY HISTORY: Positive for sister with a history of breast cancer. Mother has a history of chest pain, angina, hyperlipidemia, osteoarthritis, and breast cancer as well as uterine cancer. Father has a history of diabetes and dementia. REVIEW OF SYSTEMS: CONSTITUTIONAL negative. NEUROLOGIC negative. HEENT negative. CARDIOVASCULAR negative. PULMONARY: Shortness of breath, chest tightness, wheezing, cough, chest congestion. GI negative. negative. RHEUMATOLOGIC negative. IMMUNOLOGIC negative. ENDOCRINOLOGIC negative. DERMATOLOGIC negative. PHYSICAL EXAMINATION: VITAL SIGNS: Current vital signs are reviewed. Temperature is 97.7, heart rate 70, respiratory rate 18, blood pressure 125/78, mean 93, room air saturation 92%. Appears in no acute distress. HEENT examination is grossly unremarkable. Mucous membranes are moist. No supplemental oxygen. NECK: Supple. Full range of motion. No adenopathy or thyromegaly. Neck veins are flat. CARDIOVASCULAR examination reveals regular rhythm and rate. Heart rate mid 70s. S1, S2 normal. LUNGS: Reveal mostly clear breath sounds. A few scattered mild rhonchi and wheezes. Breath sounds are equal bilaterally. Slight prolongation. ABDOMEN: Soft. Bowel sounds are heard. EXTREMITIES are intact. No cyanosis, clubbing, or edema. SKIN: Without rash. NEUROLOGIC examination is brief but nonfocal. LABS: Reviewed. CBC is completely normal. PT 12.8, INR 1.2, PTT 33.4. Sodium and potassium normal. Chloride 108, CO2 is 25, anion gap is 6. BUN and creatinine were 14 and 0.58. The rest of the CMP is normal. Chest x-ray is normal. Medications are reviewed. ASSESSMENT: 1. Asthma exacerbation complicated by mild purulent tracheobronchitis. 2. Multiple other medical problems and comorbidities as listed above. PLAN: The patient is currently doing relatively well. She could be considered for discharge. She should go home on prednisone 40 mg a day. She should take 40 mg for 4 days, 30 mg for 4 days, 20 mg for 4 days, 10 mg for 4 days and stop. She is to continue her Singulair, her Advair and her rescue inhaler at home. She should be sent home on a very short course of antibiotics. This could include such things as Zithromax, Bactrim, Augmentin, Omnicef, Ceftin, etc. In addition, I would like her to call the office on Monday morning at 8:30 am and get in to see me this week in the office. Additional recommendations and suggestions are forthcoming. Prognosis is guarded. MMODL / IJN: [id number] /
== END 2019-06-29 16:38 | disposition home or self-care (01) ==
LOC: EC 16:59 → 1SOBS 19:32
PROVIDERS: ADMIT Internal Medicine; ATTEND Internal Medicine
DX: J45.901 Unspecified asthma with (acute) exacerbation (principal); J06.9 Acute upper respiratory infection, unspecified; M79.7 Fibromyalgia; I11.9 Hypertensive heart disease without heart failure; E78.5 Hyperlipidemia, unspecified; M19.90 Unspecified osteoarthritis, unspecified site; R25.1 Tremor, unspecified; G43.909 Migraine, unspecified, not intractable, without status migrainosus; M50.30 Other cervical disc degeneration, unspecified cervical region; M51.36 Other intervertebral disc degeneration, lumbar region; R53.1 Weakness; Z79.01 Long term (current) use of anticoagulants; Z79.51 Long term (current) use of inhaled steroids; Z79.899 Other long term (current) drug therapy; Z88.1 Allergy status to other antibiotic agents; Z88.5 Allergy status to narcotic agent; Z88.6 Allergy status to analgesic agent; Z88.7 Allergy status to serum and vaccine; Z88.8 Allergy status to other drugs, medicaments and biological substances; Z86.711 Personal history of pulmonary embolism; Z86.718 Personal history of other venous thrombosis and embolism; Z87.01 Personal history of pneumonia (recurrent); Z90.710 Acquired absence of both cervix and uterus; Z96.659 Presence of unspecified artificial knee joint; Z87.19 Personal history of other diseases of the digestive system; Z98.49 Cataract extraction status, unspecified eye; Z77.22 Contact with and (suspected) exposure to environmental tobacco smoke (acute) (chronic); Z80.49 Family history of malignant neoplasm of other genital organs; Z83.3 Family history of diabetes mellitus; Z81.8 Family history of other mental and behavioral disorders; Z82.61 Family history of arthritis; Z84.1 Family history of disorders of kidney and ureter; Z80.3 Family history of malignant neoplasm of breast; Z83.79 Family history of other diseases of the digestive system; Z83.49 Family history of other endocrine, nutritional and metabolic diseases; Z83.1 Family history of other infectious and parasitic diseases
CPT/HCPCS: 96361 ×2; 96375; 96376 ×2; 96374; 99285; 36415; 94640 ×3; 94760; 93005; 83880; 80053; 83735; 84484; 85025; 85610; 85730; 87040; 71046; G0378 ×2; J2930 ×2; J2405

== ENCOUNTER → 2020-03-07 | Outpatient (CLI) | payer MEDICARE, BC, OTHER ==
--- NOTE | 2020-03-07 12:01 | XR ---
EXAMINATION TYPE: XR lumbar spine 2 or 3V DATE OF EXAM: 03/07/2020 CLINICAL HISTORY: pain TECHNIQUE: Three views of the lumbar spine are submitted. COMPARISON: None. FINDINGS: Curvature noted convex to the left. Moderate degenerative disc space narrowing throughout and spondyl osis. No compression fracture or malalignment. Moderate facet joint arthropathy. IMPRESSION: No acute fracture or dislocation is seen in the lumbar spine. ICD 10 NO FRACTURE, INITIAL EVALUATION
== END | disposition home or self-care (01) ==
LOC: RADXRMAIN 11:39
PROVIDERS: ATTEND Internal Medicine
DX: M47.816 Spondylosis without myelopathy or radiculopathy, lumbar region (principal)
CPT/HCPCS: 72100

== ENCOUNTER → 2020-07-07 | Outpatient (CLI) | payer MEDICARE, BC, OTHER ==
--- NOTE | 2020-07-07 14:50 | US ---
EXAMINATION TYPE: US kidneys/renal and bladder DATE OF EXAM: 07/07/2020 COMPARISON: NONE CLINICAL HISTORY: N39.0 Frequent or recurrent urinary tract infectio. frequent utis. No pain at this time. EXAM MEASUREMENTS: Right Kidney: 9.3 x 3.9 x 4.2 cm Left Kidney: 9.1 x 3.9 x 4.4 cm Right Kidney: lower medial pole cystic appearing lesion - 2.0 x 1.9 x 1.7 cm Left Kidney: cystic appearing lesion in mid renal sinus = 0.8 x 0.7 x 0.6 cm Bladder: distended, anechoic Bilateral Jets seen There is no evidence for hydronephrosis at this point in time. No nephrolithiasis is seen. No isiah s are identified. The urinary bladder is anechoic. Bilateral ureteral jets are seen. IMPRESSION: 1. Renal cysts as noted. No solid masses seen.
== END | disposition home or self-care (01) ==
LOC: RADUSWWP 13:35
PROVIDERS: ATTEND Urology
DX: N28.1 Cyst of kidney, acquired (principal)
CPT/HCPCS: 76770

== ENCOUNTER 2021-06-15 06:24 | Emergency (ER) | payer MEDICARE, BC, OTHER ==
[2021-06-15] MEDS ORDERED: SODIUM CHLORIDE 0.9% 1,000 ML IV STA (06:43)
[2021-06-15] MEDS ORDERED: ACETAMINOPHEN TAB 325 MG TAB PO STA (06:49)
[2021-06-15 07:03] LABS: Basophils % (A) 0 %; Eosinophils # (A) 0.1 k/uL (0-0.7); Eosinophils % (A) 1 %; HCT 41.3 % (34.0-46.0); HGB 13.8 gm/dL (11.4-16.0); Lymphocytes % (A) 24 %; MCH 29.8 pg (25.0-35.0); MCHC 33.4 g/dL (31.0-37.0); Mean Platelet Volume 8.1; Monocytes # (A) 0.4 k/uL (0-1.0); Monocytes % (A) 5 %; Neutrophils # (A) 5.4 k/uL (1.3-7.7); Neutrophils % (A) 67 %; Platelet Count 206 k/uL (150-450); RBC 4.63 m/uL (3.80-5.40); RDW 12.5 % (11.5-15.5)
--- NOTE | 2021-06-15 07:14 | XR ---
EXAMINATION TYPE: XR chest 2V DATE OF EXAM: 06/15/2021 COMPARISON: 06/28/2019 HISTORY: 70-year-old female dizziness TECHNIQUE: AP and lateral views FINDINGS: Heart appears borderline enlarged. Vascular prominence. Patchy opacity posterior lower lung on the la teral view. No pleural effusion. IMPRESSION: 1. Cardiomegaly with interstitial prominence which may be on a technical basis. Correlate to exclude mild pulmonary vascular congestion. 2. Patchy posterior basilar opacity on the lateral view could represent atelectasis or developing inf iltrate. Correlate with patient's symptoms.
[2021-06-15 07:25] LABS: MCV 89.1 fL (80.0-100.0)
[2021-06-15 07:35] LABS: ALT 16 U/L (4-34); AST 28 U/L (14-36); African American GFR (CKD) >90 (>60 ml/min/1.73 sqM); Albumin 3.5 g/dL (3.5-5.0); Alkaline Phosphatase 74 U/L (38-126); Anion Gap 4 mmol/L; Blood Urea Nitrogen 8 mg/dL (7-17); Calcium 8.8 mg/dL (8.4-10.2); Carbon Dioxide 24 mmol/L (22-30); Chloride 98 mmol/L (98-107); Glucose 102 mg/dL (74-99); Non-African American GFR(CKD) >90 (>60 ml/min/1.73 sqM); Potassium 3.9 mmol/L (3.5-5.1); Sodium 126 mmol/L (137-145); Total Bilirubin 0.6 mg/dL (0.2-1.3); Total Protein 6.2 g/dL (6.3-8.2)
[2021-06-15 07:42] LABS: INR 1.1 (<1.2); Prothrombin Time 11.3 sec (9.0-12.0)
[2021-06-15] MEDS ORDERED: KETOROLAC 15 MG/ML 1 ML VIAL IVP STA (08:19)
--- NOTE | 2021-06-15 08:23 | ED ---
Fall HPI - General Chief Complaint: Fall Stated Complaint: Fall Time Seen by Provider: 06/15/21 06:36 Source: patient, EMS, RN notes reviewed Mode of arrival: EMS - History of Present Illness Initial Comments: Patient is a 70-year-old female that presents to the emergency Department complaining of feeling lightheaded dizzy after having a bowel movement this morning. She notes she woke up early this morning went to the bathroom at about diarrhea got dizzy and fell injuring her right knee. She denied hitting her head or losing consciousness. She does note that she takes blood thinners. Patient was otherwise well-appearing in no apparent distress or pain. She notes that she's feeling final sitting up in bed. She denied any chest pain shortness breath headache nausea vomiting constipation fever fatigue chills. - Related Data Home Medications Medication Instructions Recorded Confirmed Atorvastatin Calcium [Lipitor] 10 mg PO HS 08/03/14 06/28/19 Cetirizine HCl [Zyrtec] 10 mg PO HS 08/03/14 06/28/19 Montelukast [Singulair] 10 mg PO HS 08/03/14 06/28/19 Meclizine [Antivert] 25 mg PO TID PRN 10/22/15 06/28/19 Rivaroxaban [Xarelto] 20 mg PO DAILY 10/22/15 06/28/19 Acetaminophen [Tylenol] 1,000 mg PO Q4-6H PRN 11/04/15 06/28/19 Calcium Carbonate [Calcium] 600 mg PO BID 06/12/18 06/28/19 Omeprazole [PriLOSEC] 40 mg PO DAILY 06/12/18 06/28/19 Pregabalin [Lyrica] 100 mg PO BID 06/12/18 06/28/19 Propranolol LA [Inderal LA] 60 mg PO DAILY 06/12/18 06/28/19 lisinopriL [Zestril] 5 mg PO DAILY 06/12/18 06/28/19 Cholecalciferol [Vitamin D3 (25 1,000 unit PO BID 06/28/19 06/28/19 Mcg = 1000 Iu)] Fluticasone Propion/Salmeterol 1 puff INHALATION RT-BID 06/28/19 06/28/19 [Wixela 500-50 Inhub] Previous Rx's Medication Instructions Recorded Ferrous Sulfate [Iron (65 MG 325 mg PO MOWEFR tab 06/15/18 Elemental)] Azithromycin [Zithromax Z-pack (6 250 mg PO DIRECTED #6 tab 06/29/19 tabs)] predniSONE [Deltasone] 20 mg PO DAILY #18 tab 06/29/19 Allergies Allergy/AdvReac Type Severity Reaction Status Date / Time celecoxib [From Celebrex] Allergy Itching in Verified 06/28/19 20:01 mouth and throat methylprednisolone Allergy Unknown Verified 06/28/19 20:01 [From Medrol] metronidazole [From Flagyl] Allergy Unknown Verified 06/28/19 20:01 pentazocine lactate Allergy Unknown Verified 06/28/19 20:01 [From Talwin] propoxyphene HCl Allergy Unknown Verified 06/28/19 20:01 [From Darvon] Tetanus Vaccines and Toxoid Allergy Rash/Hives Verified 06/28/19 20:01 [Tetanus Vaccines & Toxoid] and itching butorphanol tartrate AdvReac drop in bp Verified 06/28/19 20:01 [From Stadol] and increases resp rate ciprofloxacin HCl AdvReac Nausea & Verified 06/28/19 20:01 [From Cipro] Vomiting and headache codeine AdvReac Nausea & Verified 06/28/19 20:01 Vomiting fentanyl AdvReac Nausea & Verified 06/28/19 20:01 Vomiting hydrocodone bitartrate AdvReac Nausea & Verified 06/28/19 20:01 [From Vicodin] Vomiting hydromorphone HCl AdvReac Nausea & Verified 06/28/19 20:01 [From Dilaudid] Vomiting indomethacin sodium AdvReac headache Verified 06/28/19 20:01 [From Indocin] meperidine HCl [From Demerol] AdvReac headache Verified 06/28/19 20:01 morphine AdvReac Nausea & Verified 06/28/19 20:01 Vomiting oxycodone HCl [From Percodan] AdvReac Nausea & Verified 06/28/19 20:01 Vomiting Sulfa (Sulfonamide AdvReac Nausea & Verified 06/28/19 20:01 Antibiotics) Vomiting tramadol AdvReac Nausea & Verified 06/28/19 20:01 Vomiting & Diarrhea and headache Review of Systems ROS Statement: Those systems with pertinent positive or pertinent negative responses have been documented in the HPI. ROS Other: All systems not noted in ROS Statement are negative. 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, tremor History of Any Multi-Drug Resistant Organisms: None Reported Past Surgical History: Hysterectomy, Orthopedic Surgery Additional Past Surgical History / Comment(s): two total knee replacement, c ataracts, 11-04-15 HEART CATH Past Anesthesia/Blood Transfusion Reactions: Motion Sickness, Postoperative Nausea & Vomiting (PONV) Past Psychological History: No Psychological Hx Reported Smoking Status: Never smoker Past Alcohol Use History: None Reported Past Drug Use History: None Reported - Past Family History Sister(s) Additional Family Medical History / Comment(s): Patient has one sister with history of breast cancer. Patient has no brothers. Patient has one son with history of seasonal ALLERGIES. Mother Family Medical History: Cancer, Chest Pain / Angina, Hyperlipidemia, Ost eoarthritis (OA) Additional Family Medical History / Comment(s): breast cancer 2x.-masectomy uterine cancer- hysterectomy. Mother at age 94 from sepsis, renal failure and history of chronic small bowel obstruction. Father Family Medical History: Dementia, Diabetes Mellitus Additional Family Medical History / Comment(s): Father at age 93 with history of dementia and diabetes General Exam General appearance: alert, in no apparent distress Head exam: Present: atraumatic, normocephalic, normal inspection Eye exam: Present: normal appearance, PERRL, EOMI. Absent: scleral icterus, conjunctival injection, periorbital swelling ENT exam: Present: normal exam, mucous membranes moist Neck exam: Present: normal inspection Respiratory exam: Present: normal lung sounds bilaterally. Absent: respiratory distress, wheezes, rales, rhonchi, stridor Cardiovascular Exam: Present: regular rate, normal rhythm, normal heart sounds. Absent: systolic murmur, diastolic murmur, rubs, gallop, clicks Extremities exam: Present: normal inspection, full ROM, normal capillary refill. Absent: tenderness, pedal edema, joint swelling, calf tenderness Neurological exam: Present: alert, oriented X3 Expanded Patient oriented to: Present: person, place, time Speech: Present: fluid speech Cranial nerves: EOM's Intact: Normal, Tongue Deviation: Normal, Nystagmus: Normal Cerebellar function: Finger to Nose: Normal Motor strength exam: RUE: 5, LUE: 5, RLE: 5, LLE: 5 Psychiatric exam: Present: normal affect, normal mood Skin exam: Present: warm, dry, intact, normal color. Absent: rash Course Vital Signs 06/15/21 06/15/21 06:26 07:36 Pulse Rate 83 Pulse Rate [ 60 Sitting] Pulse Rate [ 76 Standing] Pulse Rate [ 57 L Supine] Respiratory 20 Rate Blood Pressure 166/82 [Sitting] Blood Pressure 151/83 [Standing] Blood Pressure 150/76 [Supine] O2 Sat by Pulse 97 Oximetry Medical Decision Making - Medical Decision Making 70-year-old female with a fainting dizzy spell and knee pain after falling. 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 Labs unremarkable from baseline. EKG similar to previous. X-ray imaging negative for any acute process. Case discussed with Dr. Aguilar, patient discharge home - Lab Data Result diagrams: 06/15/21 06:50 06/15/21 06:50 Lab Results 06/15/21 06/15/21 06/15/21 Range/Units 06:50 06:50 06:50 WBC 8.0 (3.8-10.6) k/uL RBC 4.63 (3.80-5.40) m/uL Hgb 13.8 (11.4-16.0) gm/dL Hct 41.3 (34.0-46.0) % MCV 89.1 D (80.0-100.0) fL MCH 29.8 (25.0-35.0) pg MCHC 33.4 (31.0-37.0) g/dL RDW 12.5 (11.5-15.5) % Plt Count 206 (150-450) k/uL MPV 8.1 Neutrophils % 67 % Lymphocytes % 24 % Monocytes % 5 % Eosinophils % 1 % Basophils % 0 % Neutrophils # 5.4 (1.3-7.7) k/uL Lymphocytes # 2.0 (1.0-4.8) k/uL Monocytes # 0.4 (0-1.0) k/uL Eosinophils # 0.1 (0-0.7) k/uL Basophils # 0.0 (0-0.2) k/uL PT 11.3 (9.0-12.0) sec INR 1.1 (<1.2) Sodium 126 L (137-145) mmol/L Potassium 3.9 (3.5-5.1) mmol/L Chloride 98 (98-107) mmol/L Carbon Dioxide 24 (22-30) mmol/L Anion Gap 4 mmol/L BUN 8 (7-17) mg/dL Creatinine 0.40 L (0.52-1.04) mg/dL Est GFR (CKD-EPI)AfAm >90 (>60 ml/min/1.73 sqM) Est GFR (CKD-EPI)NonAf >90 (>60 ml/min/1.73 sqM) Glucose 102 H (74-99) mg/dL Calcium 8.8 (8.4-10.2) mg/dL Total Bilirubin 0.6 (0.2-1.3) mg/dL AST 28 (14-36) U/L ALT 16 (4-34) U/L Alkaline Phosphatase 74 (38-126) U/L Troponin I (0.000-0.034) ng/mL Total Protein 6.2 L (6.3-8.2) g/dL Albumin 3.5 (3.5-5.0) g/dL 06/15/21 Range/Units 06:50 WBC (3.8-10.6) k/uL RBC (3.80-5.40) m/uL Hgb (11.4-16.0) gm/dL Hct (34.0-46.0) % MCV (80.0-100.0) fL MCH (25.0-35.0) pg MCHC (31.0-37.0) g/dL RDW (11.5-15.5) % Plt Count (150-450) k/uL MPV Neutrophils % % Lymphocytes % % Monocytes % % Eosinophils % % Basophils % % Neutrophils # (1.3-7.7) k/uL Lymphocytes # (1.0-4.8) k/uL Monocytes # (0-1.0) k/uL Eosinophils # (0-0.7) k/uL Basophils # (0-0.2) k/uL PT (9.0-12.0) sec INR (<1.2) Sodium (137-145) mmol/L Potassium (3.5-5.1) mmol/L Chloride (98-107) mmol/L Carbon Dioxide (22-30) mmol/L Anion Gap mmol/L BUN (7-17) mg/dL Creatinine (0.52-1.04) mg/dL Est GFR (CKD-EPI)AfAm (>60 ml/min/1.73 sqM) Est GFR (CKD-EPI)NonAf (>60 ml/min/1.73 sqM) Glucose (74-99) mg/dL Calcium (8.4-10.2) mg/dL Total Bilirubin (0.2-1.3) mg/dL AST (14-36) U/L ALT (4-34) U/L Alkaline Phosphatase (38-126) U/L Troponin I <0.012 (0.000-0.034) ng/mL Total Protein (6.3-8.2) g/dL Albumin (3.5-5.0) g/dL - EKG Data -: EKG Interpreted by [facility] EKG shows normal: sinus rhythm Rate: bradycardia EKG Comments: Ventricular rate 49 bpm, NM interval 282 ms, QRS duration 80 ms, QTC 408 ms, PRT axes 47/91/-24. Sinus bradycardia with first-degree AV block, septal infarct age undetermined, abnormal ECG. Disposition Clinical Impression: Fall, Right knee pain Disposition: HOME SELF-CARE Condition: Stable Instructions (If sedation given, give patient instructions): Fall Prevention for Older Adults (ED) Additional Instructions: Please return to the Emergency Department if symptoms worsen or any other concerns. Follow-up with primary care today as planned. Increase oral fluid hydration. Mildly increased salt intake Is patient prescribed a controlled substance at d/c from ED?: No Referrals: Gallo Monroe MD [Primary Care Provider] - 1-2 days Time of Disposition: 08:30
[2021-06-15 08:32] VITALS: RESP 18
[2021-06-15 09:31] LABS: Appearance,Urine Clear (Clear); Bacteria,Urine Rare /hpf; Bilirubin,Urine Negative (Negative); Blood,Urine Negative (Negative); Color,Urine Light Yellow; Glucose,Urine (UA) Negative (Negative); Ketones,Urine Negative (Negative); Leukocyte Esterase,Urine Trace (Negative); Nitrite,Urine Negative (Negative); PH, Urine 7.5 (5.0-8.0); Protein,Urine Negative (Negative); Specific Gravity,Urine 1.004 (1.001-1.035); Squamous Epithelial Cell,Urine 1 /hpf (0-4); Urobilinogen,Urine <2.0 mg/dL (<2.0); WBC,Urine <1 /hpf (0-5)
[2021-06-15 10:00] VITALS: BP 181/78; PULSE 62; TEMP 98.7
== END 2021-06-15 11:20 | disposition home or self-care (01) ==
LOC: EC 06:24
DX: M25.561 Pain in right knee (principal); J45.909 Unspecified asthma, uncomplicated; Z86.718 Personal history of other venous thrombosis and embolism; E78.5 Hyperlipidemia, unspecified; I10 Essential (primary) hypertension; M19.90 Unspecified osteoarthritis, unspecified site; Z88.1 Allergy status to other antibiotic agents; Z88.7 Allergy status to serum and vaccine; Z88.5 Allergy status to narcotic agent; Z88.2 Allergy status to sulfonamides; Z88.6 Allergy status to analgesic agent; Z86.711 Personal history of pulmonary embolism; Z90.710 Acquired absence of both cervix and uterus; Z96.653 Presence of artificial knee joint, bilateral
CPT/HCPCS: 99284; 96374; 96361; 36415; 93005; 80053; 84484; 85025; 85610; 81001; 73562; 71046; J1885

== ENCOUNTER 2021-11-06 13:34 | Emergency (ER) | payer MEDICARE, BC, OTHER ==
[2021-11-06 13:55] VITALS: RESP 16; TEMP 97.4
[2021-11-06] MEDS ORDERED: ACETAMINOPHEN TAB 500 MG TAB PO STA (14:03)
--- NOTE | 2021-11-06 14:05 | ED ---
Fall HPI - General Chief Complaint: Fall Stated Complaint: Fall Source: patient, EMS Mode of arrival: EMS - History of Present Illness Initial Comments: 71-year-old female with past medical history of PE on several toe presents emergency Department after she sustained a fall. Was attempting to place something on the off of her refrigerator when she lost her balance and fell. States she fell backwards onto her tailbone and then hit her head on the covers. There is no loss of consciousness. She braced herself with her right wrist. She is right-hand dominant. Reports to right wrist pain with obvious deformity which was splinted by EMS. She was unable to get up off the floor on her own. She did not take anything for pain control yet at this time. Denies headaches or visual changes. No neck pain. Denies any chest pain or shortness of breath. No numbness, tingling or weakness into the fingertips. 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 - Related Data Home Medications Medication Instructions Recorded Confirmed Atorvastatin Calcium [Lipitor] 10 mg PO HS 08/03/14 06/28/19 Cetirizine HCl [Zyrtec] 10 mg PO HS 08/03/14 06/28/19 Montelukast [Singulair] 10 mg PO HS 08/03/14 06/28/19 Meclizine [Antivert] 25 mg PO TID PRN 10/22/15 06/28/19 Rivaroxaban [Xarelto] 20 mg PO DAILY 10/22/15 06/28/19 Acetaminophen [Tylenol] 1,000 mg PO Q4-6H PRN 11/04/15 06/28/19 Calcium Carbonate [Calcium] 600 mg PO BID 06/12/18 06/28/19 Omeprazole [PriLOSEC] 40 mg PO DAILY 06/12/18 06/28/19 Pregabalin [Lyrica] 100 mg PO BID 06/12/18 06/28/19 Propranolol LA [Inderal LA] 60 mg PO DAILY 06/12/18 06/28/19 lisinopriL [Zestril] 5 mg PO DAILY 06/12/18 06/28/19 Cholecalciferol [Vitamin D3 (25 1,000 unit PO BID 06/28/19 06/28/19 Mcg = 1000 Iu)] Fluticasone Propion/Salmeterol 1 puff INHALATION RT-BID 06/28/19 06/28/19 [Wixela 500-50 Inhub] Previous Rx's Medication Instructions Recorded Ferrous Sulfate [Iron (65 MG 325 mg PO MOWEFR tab 06/15/18 Elemental)] Azithromycin [Zithromax Z-pack (6 250 mg PO DIRECTED #6 tab 06/29/19 tabs)] predniSONE [Deltasone] 20 mg PO DAILY #18 tab 06/29/19 Ketorolac [Toradol] 10 mg PO Q8HR #15 tab 11/06/21 Allergies Allergy/AdvReac Type Severity Reaction Status Date / Time celecoxib [From Celebrex] Allergy Itching in Verified 11/06/21 13:55 mouth and throat methylprednisolone Allergy Unknown Verified 11/06/21 13:55 [From Medrol] metronidazole [From Flagyl] Allergy Unknown Verified 11/06/21 13:55 pentazocine lactate Allergy Unknown Verified 11/06/21 13:55 [From Talwin] propoxyphene HCl Allergy Unknown Verified 11/06/21 13:55 [From Darvon] Tetanus Vaccines and Toxoid Allergy Rash/Hives Verified 11/06/21 13:55 [Tetanus Vaccines & Toxoid] and itching butorphanol tartrate AdvReac drop in bp Verified 11/06/21 13:55 [From Stadol] and increases resp rate ciprofloxacin HCl AdvReac Nausea & Verified 11/06/21 13:55 [From Cipro] Vomiting and headache codeine AdvReac Nausea & Verified 11/06/21 13:55 Vomiting fentanyl AdvReac Nausea & Verified 11/06/21 13:55 Vomiting hydrocodone bitartrate AdvReac Nausea & Verified 11/06/21 13:55 [From Vicodin] Vomiting hydromorphone HCl AdvReac Nausea & Verified 11/06/21 13:55 [From Dilaudid] Vomiting indomethacin sodium AdvReac headache Verified 11/06/21 13:55 [From Indocin] meperidine HCl [From Demerol] AdvReac headache Verified 11/06/21 13:55 morphine AdvReac Nausea & Verified 11/06/21 13:55 Vomiting oxycodone HCl [From Percodan] AdvReac Nausea & Verified 11/06/21 13:55 Vomiting Sulfa (Sulfonamide AdvReac Nausea & Verified 11/06/21 13:55 Antibiotics) Vomiting tramadol AdvReac Nausea & Verified 11/06/21 13:55 Vomiting & Diarrhea and headache Review of Systems ROS Statement: Those systems with pertinent positive or pertinent negative responses have been documented in the HPI. ROS Other: All systems not noted in ROS Statement are negative. 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, tremor History of Any Multi-Drug Resistant Organisms: None Reported Past Surgical History: Hysterectomy, Orthopedic Surgery Additional Past Surgical History / Comment(s): two total knee replacement, cataracts, 316 HEART CATH Past Anesthesia/Blood Transfusion Reactions: Motion Sickness, Postoperative Nausea & Vomiting (PONV) Past Psychological History: No Psychological Hx Reported Smoking Status: Never smoker Past Alcohol Use History: None Reported Past Drug Use History: None Reported - Past Family History Sister(s) Additional Family Medical History / Comment(s): Patient has one sister with history of breast cancer. Patient has no brothers. Patient has one son with history of seasonal ALLERGIES. Mother Family Medical History: Cancer, Chest Pain / Angina, Hyperlipidemia, Osteoarthritis (OA) Additional Family Medical History / Comment(s): breast cancer 2x.-masectomy uterine cancer- hysterectomy. Mother at age 94 from sepsis, renal failure and history of chronic small bowel obstruction. Father Family Medical History: Dementia, Diabetes Mellitus Additional Family Medical History / Comment(s): Father at age 93 with history of dementia and diabetes Course Vital Signs 11/06/21 11/06/21 11/06/21 13:47 13:55 16:51 Temperature 97.4 F L Pulse Rate 62 69 Respiratory 16 16 Rate Blood Pressure 153/88 112/84 O2 Sat by Pulse 96 96 Oximetry Medical Decision Making - Medical Decision Making Arrival patient is placed in room 20. Thorough history and physical exam was performed. Patient's is given 1000 mg of Tylenol for pain control sent over for a CT of her brain and cervical spine. X-rays of the right wrist are performed. Review the patient's CT of her brain demonstrates no acute process. At this time the patient is requesting Toradol for pain control as she has had this previously in the past. I am Toradol as well as 5 mg of Valium was administered to the patient. X-ray imaging of the patient's right wrist demonstrates a distal acute transverse fracture of the radius with no significant displacement. Patient remains neurovascularly intact before and after a sugar tong splint is placed. Patient instructed to keep the splint dry. She is placed in a sling. She will follow-up with Dr. Ramos who she has recently seen from orthopedics for further management of her wrist fracture. She is only able to tolerate Toradol at home for pain control. Patient is on anticoagulation I did discuss the high risk of using both of them together. Patient understands the risk and is accepting of the treatment using the Toradol as she does not have any further options for pain management. She is instructed to rest, ice and elevate the extremity. Return for any new or worsening symptoms. Patient agreed to treatment plan she was discharged home in stable condition Disposition Clinical Impression: Fall, Distal radius fracture, Concussion without loss of consciousness Disposition: HOME SELF-CARE Condition: Stable Instructions (If sedation given, give patient instructions): Arm Fracture in Adults (ED), Fall Prevention for Older Adults (ED) Additional Instructions: Rest, ice and elevate the extremity. Call and make an appointment with Dr. Ramos on Monday. Return for any new worsening symptoms. Your splint cannot get wet. You are taking the Toradol knowing that you could have an interaction with your blood thinner. I recommended you take Tylenol at home. Prescriptions: Ketorolac [Toradol] 10 mg PO Q8HR #15 tab Is patient prescribed a controlled substance at d/c from ED?: No Referrals: Gallo Monroe MD [Primary Care Provider] - 1-2 days Michael Ramos DO [Doctor of Osteopathic Medicine] - 1-2 days Time of Disposition: 16:34
--- NOTE | 2021-11-06 14:54 | CT ---
EXAMINATION TYPE: CT brain mariposa zhao DATE OF EXAM: 11/06/2021 COMPARISON: None HISTORY: Fall with head injury. CT DLP: 1318 mGycm Automated exposure control for dose reduction was used. There is cerebral cortical atrophy. There is no mass effect or midline shift. Atrophy more noticeable in the left frontal and parietal lobe. There is no evidence of intracranial hemorrhage. The calvariu m is intact. Skull base is intact. There is normal alignment of the cervical vertebra. There is some mild degenerative disc space narrow ing at C4-5 and C5-6. No compression fracture. Facet joints are intact. There is minor spurring of th e endplates. IMPRESSION: Mild spondylotic changes in the cervical spine. Cerebral atrophy. No acute intracranial abnormality.
--- NOTE | 2021-11-06 14:56 | XR ---
EXAMINATION TYPE: XR wrist complete RT DATE OF EXAM: 11/06/2021 COMPARISON: NONE HISTORY: Pain TECHNIQUE: 4 views FINDINGS: There is acute transverse fracture distal radial metaphysis. This is 1 cm from the wrist deyvi int. There is slight impaction. There is no dislocation. There is narrowing of the first carpal metac arpal joint space with spurring. The distal ulna is intact. IMPRESSION: Acute transverse fracture of the distal radius without significant displacement.
[2021-11-06] MEDS ORDERED: KETOROLAC 15 MG/ML 1 ML VIAL IVP STA (15:01)
[2021-11-06] MEDS ORDERED: DIAZEPAM 5 MG/ML 2 ML INJ IVP STA (15:08)
[2021-11-06] MEDS ORDERED: diazePAM 5 MG TAB PO STA (15:12)
[2021-11-06] MEDS ORDERED: KETOROLAC 15 MG/ML 1 ML VIAL IM STA (15:13)
[2021-11-06 16:53] VITALS: BP 112/84; PULSE 69
== END 2021-11-06 17:09 | disposition home or self-care (01) ==
LOC: EC 13:34
DX: S52.501A Unspecified fracture of the lower end of right radius, initial encounter for closed fracture (principal); S06.0X0A Concussion without loss of consciousness, initial encounter; W01.10XA Fall on same level from slipping, tripping and stumbling with subsequent striking against unspecified object, initial encounter; Z88.1 Allergy status to other antibiotic agents; Z88.2 Allergy status to sulfonamides; Z88.7 Allergy status to serum and vaccine; Z88.5 Allergy status to narcotic agent; J45.909 Unspecified asthma, uncomplicated; Z86.718 Personal history of other venous thrombosis and embolism; M79.7 Fibromyalgia; E78.5 Hyperlipidemia, unspecified; I10 Essential (primary) hypertension; M19.90 Unspecified osteoarthritis, unspecified site; Z86.711 Personal history of pulmonary embolism; Z90.710 Acquired absence of both cervix and uterus; Z96.653 Presence of artificial knee joint, bilateral
CPT/HCPCS: 99284; 96372; 29125; 73110; 72125; 70450; J1885

== ENCOUNTER → 2021-11-10 | Outpatient (CLI) | payer MEDICARE, BC, OTHER ==
--- NOTE | 2021-11-10 11:37 | CT ---
EXAMINATION TYPE: CT wrist RT wo con DATE OF EXAM: 11/10/2021 COMPARISON: Plain film 11/06/2021 HISTORY: Right wrist pain, fracture CT DLP: 202 mGycm Automated exposure control for dose reduction was used. Helical imaging obtained through the right wr ist, 3-dimensional reconstructions performed on an alternate workstation and reviewed FINDINGS: CT findings confirm that seen on plain film. Exam is degraded by artifact, overlying splint. Techniqu e is nonstandard. Fracture through the distal radius is again noted, transverse fracture through the metaphysis of the right radius is seen, extension into the radial ulnar joint. IMPRESSION: FRACTURE DESCRIBED
== END | disposition home or self-care (01) ==
LOC: RADCTMAIN 09:16
PROVIDERS: ATTEND Orthopaedic Surgery
DX: S52.591A Other fractures of lower end of right radius, initial encounter for closed fracture (principal); S52.221A Displaced transverse fracture of shaft of right ulna, initial encounter for closed fracture; X58.XXXA Exposure to other specified factors, initial encounter

== ENCOUNTER → 2022-08-24 | Outpatient (CLI) | payer MEDICARE, BC, OTHER ==
[2022-08-24 22:53] LABS: Appearance,Urine Clear (Clear); Bilirubin,Urine Negative (Negative); Blood,Urine Negative (Negative); Color,Urine Yellow (Yellow); Ketones,Urine Negative (Negative); Nitrite,Urine Negative (Negative); PH, Urine 5.5 (5.0-8.0); Specific Gravity,Urine 1.014 (1.001-1.030); Urobilinogen,Urine 0.2 (0.2,1.0)
[2022-08-24 22:55] LABS: HCT 42.4 % (37.2-46.3); HGB 13.5 g/dL (12.0-15.0); MCH 29.8 pg (27.0-32.0); MCHC 31.8 g/dL (32.0-37.0); MCV 93.6 fL (80.0-97.0); Mean Platelet Volume 10.2 fL (9.5-12.2); NRBC Per 100 WBC 0 /100 WBCS (0.0-0.0); Platelet Count 157 X 10*3/uL (140-440); RBC 4.53 X 10*6/uL (4.10-5.20); RDW 14.6 % (11.5-14.5)
[2022-08-24 23:00] LABS: Bacteria,Urine None Seen /HPF (None Seen)
[2022-08-24 23:45] LABS: Erythrocyte Sedimentation Rate 12 mm/Hr (0-30)
[2022-08-25 01:25] LABS: ALT 27 U/L (8-44); AST 21 U/L (13-35); Albumin 3.6 g/dL (3.8-4.9); Albumin/Globulin Ratio 2.23 (1.60-3.17); Alkaline Phosphatase 64 U/L (41-126); BUN/Creat Ratio 28.24 Ratio (12.00-20.00); Bilirubin, Conjugated <0.20 mg/dL (0.20-0.40); Blood Urea Nitrogen 15.9 mg/dL (9.0-27.0); C Reactive Protein <0.30 mg/dL (0.00-0.80); Calcium 9.1 mg/dL (8.7-10.3); Carbon Dioxide 23.5 mmol/L (20.0-27.5); Chloride 106 mmol/L (96-109); Globulin 1.6 g/dL (1.6-3.3); Glucose 112 mg/dL (70-110); Non-African American GFR(CKD) 92.3 (60.0-200.0); Potassium 3.7 mmol/L (3.5-5.5); Rheumatoid Factor, Qnt <10 IU/mL (0-15); Sodium 139 mmol/L (135-145); Total Protein 5.3 g/dL (6.2-8.2)
[2022-08-25 02:24] LABS: Streptolysin O Ab(ASO) 51 IU/L (0-200)
[2022-08-25 10:22] LABS: Lyme IgG/IgM 0.05 Index
[2022-08-26 11:53] LABS: HLA B27 NEGATIVE
== END | disposition home or self-care (01) ==
LOC: LABWHC1 15:52
PROVIDERS: ATTEND Physician Assistant
DX: M19.072 Primary osteoarthritis, left ankle and foot (principal)
CPT/HCPCS: 36415; 80048; 80076; 81001; 84443; 85027; 85652; 86038; 86060; 86140; 86431; 86618; 86812

== ENCOUNTER 2022-08-27 12:53 | Observation (INO) | payer MEDICARE, BC, OTHER ==
--- NOTE | 2022-08-27 13:53 | ED ---
General Adult HPI - General Chief complaint: Shortness of Breath Stated complaint: SOB, leg swelling Time Seen by Provider: 08/27/22 13:12 Source: patient, RN notes reviewed Mode of arrival: EMS Limitations: no limitations - History of Present Illness Initial comments: Patient is a pleasant 71-year-old female presenting to the emergency department with concerns for leg swelling. Onset of symptoms was a couple of days ago. Swelling has progressively worsened however is better today with elevation of the leg. Patient has some mild discomfort of the ankles. No calf pain. Patient does have some mild exertional dyspnea today. Patient does have history of pulmonary embolism and is on Xarelto 20 mg daily. No cough. No fever. No chest pain - Related Data Home Medications Medication Instructions Recorded Confirmed Atorvastatin Calcium [Lipitor] 10 mg PO HS 08/03/14 08/27/22 Cetirizine HCl [Zyrtec] 10 mg PO HS 08/03/14 08/27/22 Montelukast [Singulair] 10 mg PO HS 08/03/14 08/27/22 Rivaroxaban [Xarelto] 20 mg PO DAILY 10/22/15 08/27/22 Calcium Carbonate [Calcium] 600 mg PO BID 06/12/18 08/27/22 Omeprazole [PriLOSEC] 40 mg PO DAILY 06/12/18 08/27/22 Pregabalin [Lyrica] 100 mg PO TID 06/12/18 08/27/22 Propranolol LA [Inderal LA] 60 mg PO DAILY 06/12/18 08/27/22 lisinopriL [Zestril] 5 mg PO DAILY 06/12/18 08/27/22 Fluticasone Propion/Salmeterol 1 puff INHALATION RT-BID 06/28/19 08/27/22 [Wixela 500-50 Inhub] Cholecalciferol [Vitamin D3 (25 25 mcg PO BID 08/27/22 08/27/22 Mcg = 1000 Iu)] Ketorolac [Toradol] 10 mg PO Q4H PRN 08/27/22 08/27/22 Previous Rx's Medication Instructions Recorded Ferrous Sulfate [Iron (65 MG 325 mg PO MOWEFR tab 06/15/18 Elemental)] Allergies Allergy/AdvReac Type Severity Reaction Status Date / Time celecoxib [From Celebrex] Allergy Itching in Verified 08/27/22 14:11 mouth and throat methylprednisolone Allergy Unknown Verified 08/27/22 14:11 [From Medrol] metronidazole [From Flagyl] Allergy Unknown Verified 08/27/22 14:11 pentazocine lactate Allergy Unknown Verified 08/27/22 14:11 [From Talwin] propoxyphene HCl Allergy Unknown Verified 08/27/22 14:11 [From Darvon] Tetanus Vaccines and Toxoid Allergy Rash/Hives Verified 08/27/22 14:11 [Tetanus Vaccines & Toxoid] and itching butorphanol tartrate AdvReac drop in bp Verified 08/27/22 14:11 [From Stadol] and increases resp rate ciprofloxacin HCl AdvReac Nausea & Verified 08/27/22 14:11 [From Cipro] Vomiting and headache codeine AdvReac Nausea & Verified 08/27/22 14:11 Vomiting fentanyl AdvReac Nausea & Verified 08/27/22 14:11 Vomiting hydrocodone bitartrate AdvReac Nausea & Verified 08/27/22 14:11 [From Vicodin] Vomiting hydromorphone HCl AdvReac Nausea & Verified 08/27/22 14:11 [From Dilaudid] Vomiting indomethacin sodium AdvReac headache Verified 08/27/22 14:11 [From Indocin] meperidine HCl [From Demerol] AdvReac headache Verified 08/27/22 14:11 morphine AdvReac Nausea & Verified 08/27/22 14:11 Vomiting oxycodone HCl [From Percodan] AdvReac Nausea & Verified 08/27/22 14:11 Vomiting Sulfa (Sulfonamide AdvReac Nausea & Verified 08/27/22 14:11 Antibiotics) Vomiting tramadol AdvReac Nausea & Verified 08/27/22 14:11 Vomiting & Diarrhea and headache Review of Systems ROS Statement: Those systems with pertinent positive or pertinent negative responses have been documented in the HPI. ROS Other: All systems not noted in ROS Statement are negative. Constitutional: Denies: fever Eyes: Denies: eye pain ENT: Denies: ear pain Respiratory: Reports: as per HPI. Denies: cough Cardiovascular: Reports: dyspnea on exertion, edema. 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, tremor History of Any Multi-Drug Resistant Organisms: None Reported Past Surgical History: Hysterectomy, Orthopedic Surgery Additional Past Surgical History / Comment(s): two total knee replacement, catar acts, 11-04-15 HEART CATH Past Anesthesia/Blood Transfusion Reactions: Motion Sickness, Postoperative Nausea & Vomiting (PONV) Past Psychological History: No Psychological Hx Reported Smoking Status: Never smoker Past Alcohol Use History: None Reported Past Drug Use History: None Reported - Past Family History Sister(s) Additional Family Medical History / Comment(s): Patient has one sister with history of breast cancer. Patient has no brothers. Patient has one son with history of seasonal ALLERGIES. Mother Family Medical History: Cancer, Chest Pain / Angina, Hyperlipidemia, Osteoar thritis (OA) Additional Family Medical History / Comment(s): breast cancer 2x.-masectomy uterine cancer- hysterectomy. Mother at age 94 from sepsis, renal failure and history of chronic small bowel obstruction. Father Family Medical History: Dementia, Diabetes Mellitus Additional Family Medical History / Comment(s): Father at age 93 with history of dementia and diabetes General Exam Limitations: no limitations General appearance: alert, in no apparent distress Head exam: Present: normocephalic Eye exam: Present: normal appearance Neck exam: Present: normal inspection Respiratory exam: Present: normal lung sounds bilaterally Cardiovascular Exam: Present: regular rate, normal rhythm GI/Abdominal exam: Present: soft. Absent: tenderness Extremities exam: Present: pedal edema. Absent: calf tenderness Neurological exam: Present: alert Psychiatric exam: Present: normal affect, normal mood Skin exam: Present: normal color Course Vital Signs 08/27/22 08/27/22 08/27/22 13:06 14:12 15:35 Temperature 98.6 F Pulse Rate 65 68 78 Respiratory 20 20 16 Rate Blood Pressure 172/93 110/68 130/68 O2 Sat by Pulse 96 96 96 Oximetry 08/27/22 08/27/22 16:00 17:00 Temperature 98 F Pulse Rate 65 85 Respiratory 16 20 Rate Blood Pressure 148/65 132/68 O2 Sat by Pulse 96 98 Oximetry EKG Findings - EKG Results: EKG: interpreted by ERMD (First 3 AV block. LVH criteria. No acute ST change.), sinus rhythm, normal axis EKG shows: bradycardia Medical Decision Making - Medical Decision Making Patient reevaluated. Patient does not feel comfortable with discharge home. Case was earlier discussed with Dr. armenta. Case was now discussed with practitioner Negrito, who will admit covering Dr. armenta. - Lab Data Result diagrams: 08/27/22 14:11 08/27/22 14:11 Lab Results 08/27/22 08/27/22 08/27/22 Range/Units 14:11 14:11 14:11 WBC 6.4 (3.8-10.6) k/uL RBC 4.52 (3.80-5.40) m/uL Hgb 13.6 (11.4-16.0) gm/dL Hct 41.0 (34.0-46.0) % MCV 90.7 (80.0-100.0) fL MCH 30.1 (25.0-35.0) pg MCHC 33.2 (31.0-37.0) g/dL RDW 13.7 (11.5-15.5) % Plt Count 128 L (150-450) k/uL MPV 7.2 Neutrophils % 70 % Lymphocytes % 20 % Monocytes % 6 % Eosinophils % 1 % Basophils % 0 % Neutrophils # 4.5 (1.3-7.7) k/uL Lymphocytes # 1.3 (1.0-4.8) k/uL Monocytes # 0.4 (0-1.0) k/uL Eosinophils # 0.1 (0-0.7) k/uL Basophils # 0.0 (0-0.2) k/uL PT 14.5 H (9.0-12.0) sec INR 1.4 H (<1.2) APTT 34.6 H (22.0-30.0) sec D-Dimer 0.80 H (<0.60) mg/L FEU Sodium 141 (137-145) mmol/L Potassium 3.7 (3.5-5.1) mmol/L Chloride 110 H (98-107) mmol/L Carbon Dioxide 30 (22-30) mmol/L Anion Gap 1 mmol/L BUN 14 (7-17) mg/dL Creatinine 0.50 L (0.52-1.04) mg/dL Est GFR (CKD-EPI)AfAm >90 (>60 ml/min/1.73 sqM) Est GFR (CKD-EPI)NonAf >90 (>60 ml/min/1.73 sqM) Glucose 94 (74-99) mg/dL Plasma Lactic Acid Angel (0.7-2.0) mmol/L Calcium 8.9 (8.4-10.2) mg/dL Magnesium 2.3 (1.6-2.3) mg/dL Total Bilirubin 0.7 (0.2-1.3) mg/dL AST 24 (14-36) U/L ALT 23 (4-34) U/L Alkaline Phosphatase 66 (38-126) U/L Troponin I (0.000-0.034) ng/mL NT-Pro-B Natriuret Pep pg/mL Total Protein 5.6 L (6.3-8.2) g/dL Albumin 3.4 L (3.5-5.0) g/dL 08/27/22 08/27/22 08/27/22 Range/Units 14:11 14:11 14:11 WBC (3.8-10.6) k/uL RBC (3.80-5.40) m/uL Hgb (11.4-16.0) gm/dL Hct (34.0-46.0) % MCV (80.0-100.0) fL MCH (25.0-35.0) pg MCHC (31.0-37.0) g/dL RDW (11.5-15.5) % Plt Count (150-450) k/uL MPV Neutrophils % % Lymphocytes % % Monocytes % % Eosinophils % % Basophils % % Neutrophils # (1.3-7.7) k/uL Lymphocytes # (1.0-4.8) k/uL Monocytes # (0-1.0) k/uL Eosinophils # (0-0.7) k/uL Basophils # (0-0.2) k/uL PT (9.0-12.0) sec INR (<1.2) APTT (22.0-30.0) sec D-Dimer (<0.60) mg/L FEU Sodium (137-145) mmol/L Potassium (3.5-5.1) mmol/L Chloride (98-107) mmol/L Carbon Dioxide (22-30) mmol/L Anion Gap mmol/L BUN (7-17) mg/dL Creatinine (0.52-1.04) mg/dL Est GFR (CKD-EPI)AfAm (>60 ml/min/1.73 sqM) Est GFR (CKD-EPI)NonAf (>60 ml/min/1.73 sqM) Glucose (74-99) mg/dL Plasma Lactic Acid Angel 0.9 (0.7-2.0) mmol/L Calcium (8.4-10.2) mg/dL Magnesium (1.6-2.3) mg/dL Total Bilirubin (0.2-1.3) mg/dL AST (14-36) U/L ALT (4-34) U/L Alkaline Phosphatase (38-126) U/L Troponin I <0.012 (0.000-0.034) ng/mL NT-Pro-B Natriuret Pep 144 pg/mL Total Protein (6.3-8.2) g/dL Albumin (3.5-5.0) g/dL - Radiology Data Radiology results: report reviewed (CT angios shows no evidence of pulmonary embolism. Interstitial infiltrates/atelectasis and lower lung travis.) Interpreted by me: Chest x-ray shows no acute process Disposition Clinical Impression: Peripheral edema, Dyspnea Disposition: ADMITTED IP TO THIS HOSP Is patient prescribed a controlled substance at d/c from ED?: No Referrals: Gallo Monroe MD [Primary Care Provider] - 1-2 days Time of Disposition: 18:30
[2022-08-27 14:48] LABS: Basophils % (A) 0 %; Eosinophils # (A) 0.1 k/uL (0-0.7); Eosinophils % (A) 1 %; HGB 13.6 gm/dL (11.4-16.0); Lymphocytes # (A) 1.3 k/uL (1.0-4.8); Lymphocytes % (A) 20 %; MCH 30.1 pg (25.0-35.0); MCHC 33.2 g/dL (31.0-37.0); MCV 90.7 fL (80.0-100.0); Mean Platelet Volume 7.2; Monocytes # (A) 0.4 k/uL (0-1.0); Monocytes % (A) 6 %; Neutrophils # (A) 4.5 k/uL (1.3-7.7); Neutrophils % (A) 70 %; Platelet Count 128 k/uL (150-450); RBC 4.52 m/uL (3.80-5.40); RDW 13.7 % (11.5-15.5); WBC 6.4 k/uL (3.8-10.6)
[2022-08-27 14:58] LABS: ALT 23 U/L (4-34); AST 24 U/L (14-36); African American GFR (CKD) >90 (>60 ml/min/1.73 sqM); Albumin 3.4 g/dL (3.5-5.0); Alkaline Phosphatase 66 U/L (38-126); Anion Gap 1 mmol/L; Blood Urea Nitrogen 14 mg/dL (7-17); Calcium 8.9 mg/dL (8.4-10.2); Carbon Dioxide 30 mmol/L (22-30); Chloride 110 mmol/L (98-107); Glucose 94 mg/dL (74-99); Magnesium 2.3 mg/dL (1.6-2.3); Non-African American GFR(CKD) >90 (>60 ml/min/1.73 sqM); Potassium 3.7 mmol/L (3.5-5.1); Sodium 141 mmol/L (137-145); Total Bilirubin 0.7 mg/dL (0.2-1.3); Total Protein 5.6 g/dL (6.3-8.2)
--- NOTE | 2022-08-27 15:09 | XR ---
EXAMINATION TYPE: XR chest 2V DATE OF EXAM: 08/27/2022 COMPARISON: NONE HISTORY: Cough TECHNIQUE: 2 views FINDINGS: There is no heart failure nor confluent pneumonic infiltrate. Costophrenic angles are clear . There are chest leads. Bony thorax is intact. IMPRESSION: No active cardiopulmonary disease. No change.
[2022-08-27 15:12] LABS: INR 1.4 (<1.2); Partial Thromboplastin Time 34.6 sec (22.0-30.0); Prothrombin Time 14.5 sec (9.0-12.0)
--- NOTE | 2022-08-27 16:13 | CT ---
EXAMINATION TYPE: CT angio chest DATE OF EXAM: 08/27/2022 COMPARISON: 09/26/2014 HISTORY: Dyspnea, feet swelling Hx LT ventricular hypertropy, PE, DVT. CT DLP: 375 mGycm Automated exposure control for dose reduction was used. CONTRAST: Performed with IV Contrast, patient injected with 100 mL of Isovue 370. Images obtained from the thoracic inlet to the diaphragm with the IV contrast. There are 3-D post pro cessed images. There are some coarse interstitial infiltrates or atelectasis at the lung bases bilaterally. Heart si ze is fairly normal. No pericardial effusion. No pleural effusion. Upper abdominal soft tissues are i ntact. There are no hilar masses. No mediastinal adenopathy. There is normal contrast opacification of the p ulmonary arteries. No filling defect. Thoracic aorta is intact. No aneurysm or dissection. The thorac ic spine is intact. No compression fracture. Sternum is intact. IMPRESSION: No evidence of pulmonary embolism. Interstitial infiltrates and atelectasis in the lower lung travis. No suspicious pulmonary mass. Lung disease similar to the exam.
[2022-08-27] MEDS ORDERED: NALOXONE 0.4 MG/ML 1 ML VIAL IV PRN (18:30)
[2022-08-27] MEDS ORDERED: FUROSEMIDE 10 MG/ML 4 ML VIAL IV STA (18:31)
[2022-08-27] MEDS: CALCIUM CARB-VIT D 500 MG-5 MCG TAB PO SCH (20:22)
[2022-08-27] MEDS: PREGABALIN 100 MG CAP PO SCH (20:23)
[2022-08-27] MEDS ORDERED: LORATADINE 10 MG TAB PO SCH (21:00)
[2022-08-27] MEDS ORDERED: ATORVASTATIN 10 MG TAB PO SCH (21:00)
[2022-08-28 03:32] VITALS: RESP 17
[2022-08-28] MEDS: CALCIUM CARB-VIT D 500 MG-5 MCG TAB PO SCH (05:43)
[2022-08-28 07:48] VITALS: TEMP 97.6
[2022-08-28] MEDS ORDERED: lisinopriL 5 MG TAB PO SCH (09:00)
[2022-08-28] MEDS ORDERED: PROPRANOLOL LA 60 MG CAP.SA.24H PO SCH (09:00)
[2022-08-28] MEDS ORDERED: PANTOPRAZOLE 40 MG TABLET PO SCH (09:00)
[2022-08-28 09:27] VITALS: BP 110/68; PULSE 86
[2022-08-28] MEDS: PREGABALIN 100 MG CAP PO SCH (09:27)
--- NOTE | 2022-08-28 13:11 | P.HPIM ---
History of Present Illness H&P Date: 08/28/22 This is a pleasant 71-year-old female who presented to the emergency department with concerns of left lower extremity leg swelling that it started a few days ago. Patient reports she had some swelling that had progressively been getting worse and noticed some bruising around her ankle and on the outer aspect of her cancino and denies any injuries. Patient is on Xarelto with a past medical history of PE and reports she follows with Dr. Monroe and cardiology Dr. Dennison in the outpatient setting and reports having a past medical history of asthma, deep vein thrombosis, fibromyalgia, hyperlipidemia, hypertension, osteoarthritis, PE, and chronic back pain. Patient had an elevated d-dimer of 0.8 and underwent CTA which was negative for PE with concerns of atelectasis in the lower lung travis and chest x-ray was negative for any acute cardiopulmonary process. Patient did receive a dose of IV Lasix in the ER. Patient was admitted for lower leg edema and shortness of breath. Patient is 94-97% on room air. Patient reports she was concerned with the bruising noted on her left ankle and [facility] setting last Monday and had x-rays that were negative. Labs in the ER revealed a WBC of 6.4, hemoglobin 13.6, platelets are 128, INR is 1.4, d-dimer 0.80, sodium 141, potassium 3.7, BUN 14, creatinine 0.5, magnesium is 2.3, troponin 3 have been negative, BNP was 144, Covid/influenza/RS D testing have all been negative. Review Of Systems: Constitutional: No fever, no chills, no night sweats. No weight change. No weakness, fatigue or lethargy. No daytime sleepiness. EENT: No headache. No blurred vision or double vision, no loss of vision. No loss of Hearing, no ringing in the ears, no dizziness. No nasal drainage or congestion. No epistaxis. No sore throat. Lungs: No shortness of breath, cough, no sputum production. No wheezing. Cardiovascular: No chest pain, reports left then right lower extremity edema. No palpitations. No paroxysmal nocturnal dyspnea. No orthopnea. No lightheadedness or dizziness. No syncopal episodes. Abdominal: No abdominal pain. No nausea, vomiting. No diarrhea. No constipation. No bloody or tarry stools.. No loss of appetite. Genitourinary: No dysuria, increased frequency, urgency. No urinary retention. Musculoskeletal: No myalgias. No muscle weakness, no gait dysfunction, no frequent falls. reports chronic back pain . No neck pain. reports right shoulder pain as she recently had a bicep tear Integumentary: No wounds, no lesions. No rash or pruritus. Reports left lower extremityal bruising. No change in hair or nails. Neurologic: No aphasia. No facial droop. No change in mentation. No head injury. No headache. No paralysis. No paresthesia. Psychiatric: No depression. No anxiety. No mood swings. Endocrine: No abnormal blood sugars. No weight change. No excessive sweating or thirst. No cold intolerance. PHYSICAL EXAMINATION: GENERAL: The patient is alert and oriented x4, Well developed, well nourished. elderly-appearing anxious female HEENT: Pupils are round and equally reacting to light. EOMI. no scleral icterus. No conjunctival pallor. Normocephalic, atraumatic. No pharyngeal erythema. No thyromegaly. CARDIOVASCULAR: S1 and S2 muffled PULMONARY: diminished breath sounds bilaterally with no wheezing or rhonchi noted. ABDOMEN: soft. Nontender on exam. obese. non-distended, normoactive bowel sounds. No palpable organomegaly. MUSCULOSKELETAL: No joint swelling or deformity. EXTREMITIES: No cyanosis, clubbing, or pedal edema. Left lower extremity tenderness on palpation with no pitting edema noted. There was some small ecchymosis around the inner aspect of the left ankle medial and skin is dry and intact NEUROLOGICAL: Gross neurological examination did not reveal any focal deficits. SKIN: No rashes. Assessment: left lower extremity edema of unknown etiology Small ecchymosis of the left medial ankle noted with no injuries or trauma noted History of DVT/PE patient is on Xarelto outpatient Elevated d-dimer with no evidence of PE on CTA History of asthma, not an exacerbation History of recent right shoulder bicep tear follows orthopedics outpatient Fibromyalgia Hyperlipidemia Hypertension History of osteoarthritis Left ventricular hypertrophy Degenerative disc disease with chronic back pain history GI prophylaxis DVT prophylaxis on Xarelto Full code Plan: Recommend to continue with current medications and managemenand follow-up outpatient with primary care provider along with fabric cutter Dr. Dennison. Initially a 2-D echo was ordered although there is no tech available and will not be performed and discussed with the patient about following up outpatient for possible 2-D echo. Patient reported she had some left lower extremity swelling although on exam there is no swelling and no pitting edema noted and will provide compression stockings and/or Carlos wraps as patient does have a right shoulder bicep tear and will have difficulty putting the compression stockings on. ration is chronically on Xarelto and will continue and encourage the patient to follow-up with primary care provider along with cardiology this week. Patient is medically stable and will be discharged home and instructed to follow-up outpatient with Dr. Monroe and Dr. Dennison. The impression and plan of care has been dictated by Gem Alexander, nurse practitioner as directed. Dr. Marci GAVIN I have performed a history and examination and MDM of this patient, discussed the same with the dictator, and agree with the dictator's assessment and plan as written ,documented as a scribe. Based on total visit time, I have performed more than 50% of the visit. Any additional findings or plans will be noted. 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 She lives at home with her second . She does have history of secondhand smoke exposure 8+ years with her first . Past Drug Use History: None Reported - Past Family History Sister(s) Additional Family Medical History / Comment(s): Patient has one sister with history of breast cancer. Patient has no brothers. Patient has one son with history of seasonal ALLERGIES. Mother Family Medical History: Cancer, Chest Pain / Angina, Hyperlipidemia, Osteoarthritis (OA) Additional Family Medical History / Comment(s): breast cancer 2x.-masectomy uterine cancer- hysterectomy. Mother at age 94 from sepsis, renal failure and history of chronic small bowel obstruction. Father Family Medical History: Dementia, Diabetes Mellitus Additional Family Medical History / Comment(s): Father at age 93 with history of dementia and diabetes Medications and Allergies Home Medications Medication Instructions Recorded Confirmed Type Atorvastatin Calcium [Lipitor] 10 mg PO HS 08/03/14 08/27/22 History Cetirizine HCl [Zyrtec] 10 mg PO HS 08/03/14 08/27/22 History Montelukast [Singulair] 10 mg PO HS 08/03/14 08/27/22 History Rivaroxaban [Xarelto] 20 mg PO DAILY 10/22/15 08/27/22 History Calcium Carbonate [Calcium] 600 mg PO BID 06/12/18 08/27/22 History Omeprazole [PriLOSEC] 40 mg PO DAILY 06/12/18 08/27/22 History Pregabalin [Lyrica] 100 mg PO TID 06/12/18 08/27/22 History Propranolol LA [Inderal LA] 60 mg PO DAILY 06/12/18 08/27/22 History lisinopriL [Zestril] 5 mg PO DAILY 06/12/18 08/27/22 History Ferrous Sulfate [Iron (65 MG 325 mg PO MOWEFR tab 06/15/18 08/27/22 Rx Elemental)] Fluticasone Propion/Salmeterol 1 puff INHALATION RT-BID 06/28/19 08/27/22 History [Wixela 500-50 Inhub] Cholecalciferol [Vitamin D3 (25 25 mcg PO BID 08/27/22 08/27/22 History Mcg = 1000 Iu)] Ketorolac [Toradol] 10 mg PO Q4H PRN 08/27/22 08/27/22 History Allergies Allergy/AdvReac Type Severity Reaction Status Date / Time celecoxib [From Celebrex] Allergy Itching in Verified 08/27/22 14:11 mouth and throat methylprednisolone Allergy Unknown Verified 08/27/22 14:11 [From Medrol] metronidazole [From Flagyl] Allergy Unknown Verified 08/27/22 14:11 pentazocine lactate Allergy Unknown Verified 08/27/22 14:11 [From Talwin] propoxyphene HCl Allergy Unknown Verified 08/27/22 14:11 [From Darvon] Tetanus Vaccines and Toxoid Allergy Rash/Hives Verified 08/27/22 14:11 [Tetanus Vaccines & Toxoid] and itching butorphanol tartrate AdvReac drop in bp Verified 08/27/22 14:11 [From Stadol] and increases resp rate ciprofloxacin HCl AdvReac Nausea & Verified 08/27/22 14:11 [From Cipro] Vomiting and headache codeine AdvReac Nausea & Verified 08/27/22 14:11 Vomiting fentanyl AdvReac Nausea & Verified 08/27/22 14:11 Vomiting hydrocodone bitartrate AdvReac Nausea & Verified 08/27/22 14:11 [From Vicodin] Vomiting hydromorphone HCl AdvReac Nausea & Verified 08/27/22 14:11 [From Dilaudid] Vomiting indomethacin sodium AdvReac headache Verified 08/27/22 14:11 [From Indocin] meperidine HCl [From Demerol] AdvReac headache Verified 08/27/22 14:11 morphine AdvReac Nausea & Verified 08/27/22 14:11 Vomiting oxycodone HCl [From Percodan] AdvReac Nausea & Verified 08/27/22 14:11 Vomiting Sulfa (Sulfonamide AdvReac Nausea & Verified 08/27/22 14:11 Antibiotics) Vomiting tramadol AdvReac Nausea & Verified 08/27/22 14:11 Vomiting & Diarrhea and headache Physical Exam Vitals: Vital Signs Temp Pulse Pulse Resp BP BP Pulse Ox 08/28/22 07:00 97.6 F 64 17 108/65 94 L 08/28/22 02:34 97.7 F 63 17 94/53 94 L 08/28/22 02:08 67 18 08/27/22 20:27 97.5 F L 67 18 104/66 93 L 08/27/22 19:54 65 20 143/68 98 08/27/22 18:00 75 16 143/68 96 08/27/22 17:00 98 F 85 20 132/68 98 08/27/22 16:00 65 16 148/65 96 08/27/22 15:35 78 16 130/68 96 08/27/22 14:12 68 20 110/68 96 08/27/22 13:06 98.6 F 65 20 172/93 96 Intake and Output 08/27/22 08/28/22 08/28/22 22:59 06:59 14:59 Other: Voiding Method Bedside Commode # Voids 2 2 Weight 70.307 kg Results CBC & Chem 7: 08/27/22 14:11 08/27/22 14:11 Labs: Abnormal Lab Results - Last 24 Hours (Table) 08/27/22 08/27/22 08/27/22 Range/Units 14:11 14:11 14:11 Plt Count 128 L (150-450) k/uL PT 14.5 H (9.0-12.0) sec INR 1.4 H (<1.2) APTT 34.6 H (22.0-30.0) sec D-Dimer 0.80 H (<0.60) mg/L FEU Chloride 110 H (98-107) mmol/L Creatinine 0.50 L (0.52-1.04) mg/dL Total Protein 5.6 L (6.3-8.2) g/dL Albumin 3.4 L (3.5-5.0) g/dL Thrombosis Risk Factor Assmnt - DVT/VTE Prophylaxis DVT/VTE Prophylaxis: Pharmacologic Prophylaxis ordered - Choose All That Apply Any of the Below Risk Factors Present?: Yes Each Factor Represents 1 point: Obesity (BMI >25) Other Risk Factors: Yes Each Risk Factor Represents 2 Points: Age 61-74 years Other congenital or acquired thrombophilia - If yes, enter type in comment: No Thrombosis Risk Factor Assessment Total Risk Factor Score: 3 Thrombosis Risk Factor Assessment Level: Moderate Risk Assessment and Plan Time with Patient: Greater than 30
[2022-08-28] MEDS ORDERED: RIVAROXABAN 20 MG TAB PO SCH (17:00)
--- NOTE | 2022-08-29 18:58 | P.DS ---
Providers Date of admission: 08/27/22 18:30 Expected date of discharge: 08/28/22 Attending physician: Alvarez Corrales MD Primary care physician: Gallo Monroe Hospital Course: Final diagnosis left lower extremity edema of unknown etiology Small ecchymosis of the left medial ankle noted with no injuries or trauma noted History of DVT/PE patient is on Xarelto outpatient Elevated d-dimer with no evidence of PE on CTA History of asthma, not an exacerbation History of recent right shoulder bicep tear follows orthopedics outpatient Fibromyalgia Hyperlipidemia Hypertension History of osteoarthritis Left ventricular hypertrophy Degenerative disc disease with chronic back pain history GI prophylaxis DVT prophylaxis on Xarelto Full code Discharge disposition Patient is being discharged in a stable condition with guarded prognosis to home . Patient will follow-up with in the outpatient setting upon discharge. Patient is to continue with her medications and also have outpatient follow-up with cardiology. Patient reports she follows Dr. Dennison. Total time taken is greater than 35 minutes. Hospital course This is a 71-year-old female who was recently admitted with lower extremity edema mostly on the left but reports 2 days prior she had had some right lower extremity edema. Patient also noted to have some bruising noted of the left medial ankle and outer calf area with some swelling and was given a dose of Lasi x. Patient did have a mildly elevated d-dimer although normal for her age of 0.80 underwent CTA which was negative for PE. Patient is maintained on Xarelto for history of chronic PE in the past. On exam patient has no significant swelling although has some tenderness. Patient was instructed to follow-up outpatient with primary care provider along with cardiology in the outpatient setting. Currently no reports of chest pain, shortness of breath, or palpitations. Patient is afebrile. No reports of nausea or vomiting and patient is tolerating diet. Patient will be discharged home Physical exam: Gen: This is a 71-year-old female who is awake, alert and oriented 3, well- developed, well-nourished HEENT: Head is atraumatic, normocephalic. Pupils equal, round. Sclerae is anicteric. NECK: Supple. No JVD. No lymphadenopathy. No thyromegaly. LUNGS: Clear to auscultation. No wheezes or rhonchi. No intercostal retractions. HEART: Regular rate and rhythm. No murmur. ABDOMEN: Soft. Bowel sounds are present. No masses. No tenderness. EXTREMITIES: No pedal edema. No calf tenderness. Left lower extremity medial ankle with ecchymosis noted and no surrounding redness or inflammation, no edema noted of bilateral lower extremities NEUROLOGICAL: Patient is awake, alert and oriented x3. Cranial nerves 2 through 12 are grossly intact. Please refer to medication reconciliation sheet for a list of medications. The impression and plan of care has been dictated by Gem Alexander, Nurse Practitioner as directed. Dr. Marci MD I have performed a history and examination and MDM of this patient, discussed the same with the dictator, and agree with the dictator's assessment and plan as written ,documented as a scribe. Based on total visit time, I have performed more than 50% of the visit. Patient Condition at Discharge: Stable Plan - Discharge Summary Discharge Rx Participant: No New Discharge Prescriptions: Continue Montelukast [Singulair] 10 mg PO HS Cetirizine HCl [Zyrtec] 10 mg PO HS Atorvastatin Calcium [Lipitor] 10 mg PO HS Rivaroxaban [Xarelto] 20 mg PO DAILY Omeprazole [PriLOSEC] 40 mg PO DAILY lisinopriL [Zestril] 5 mg PO DAILY Calcium Carbonate [Calcium] 600 mg PO BID Propranolol LA [Inderal LA] 60 mg PO DAILY Pregabalin [Lyrica] 100 mg PO TID Ferrous Sulfate [Iron (65 MG Elemental)] 325 mg PO MOWEFR tab Fluticasone Propion/Salmeterol [Wixela 500-50 Inhub] 1 puff INHALATION RT-BID Cholecalciferol [Vitamin D3 (25 Mcg = 1000 Iu)] 25 mcg PO BID Ketorolac [Toradol] 10 mg PO Q4H PRN PRN Reason: Pain Discharge Medication List Atorvastatin Calcium [Lipitor] 10 mg PO HS 08/03/14 [History] Cetirizine HCl [Zyrtec] 10 mg PO HS 08/03/14 [History] Montelukast [Singulair] 10 mg PO HS 08/03/14 [History] Rivaroxaban [Xarelto] 20 mg PO DAILY 10/22/15 [History] Calcium Carbonate [Calcium] 600 mg PO BID 06/12/18 [History] Omeprazole [PriLOSEC] 40 mg PO DAILY 06/12/18 [History] Pregabalin [Lyrica] 100 mg PO TID 06/12/18 [History] Propranolol LA [Inderal LA] 60 mg PO DAILY 06/12/18 [History] lisinopriL [Zestril] 5 mg PO DAILY 06/12/18 [History] Ferrous Sulfate [Iron (65 MG Elemental)] 325 mg PO MOWEFR tab 06/15/18 [Rx] Fluticasone Propion/Salmeterol [Wixela 500-50 Inhub] 1 puff INHALATION RT-BID 06/28/19 [History] Cholecalciferol [Vitamin D3 (25 Mcg = 1000 Iu)] 25 mcg PO BID 08/27/22 [History] Ketorolac [Toradol] 10 mg PO Q4H PRN 08/27/22 [History] Follow up Appointment(s)/Referral(s): Gallo Monroe MD [Primary Care Provider] - 1-2 days Franklyn Dennison MD [STAFF PHYSICIAN] - 1 Week Activity/Diet/Wound Care/Special Instructions: Activity Limited until follow-up Follow-up primary care provider on discharge follow-up cardiology outpatient Dr. Dennison Discussed possible need for echo Continue with compression stockings or if easier Carlos wraps to bilateral lower extremities up to the knees and elevate lower extremities while at rest Monitor your salt intake and fluids and keep track of how much you are drinking and keep a diary for outpatient follow-up with primary care provider and cardiology Discharge Disposition: HOME SELF-CARE
== END 2022-08-28 11:30 | disposition home or self-care (01) ==
LOC: EC 12:53 → 6NMEDSUR 18:30
PROVIDERS: ADMIT Internal Medicine; ATTEND Internal Medicine
DX: R60.0 Localized edema (principal); R79.89 Other specified abnormal findings of blood chemistry; S90.02XA Contusion of left ankle, initial encounter; J45.909 Unspecified asthma, uncomplicated; M79.7 Fibromyalgia; E78.5 Hyperlipidemia, unspecified; M50.30 Other cervical disc degeneration, unspecified cervical region; M51.36 Other intervertebral disc degeneration, lumbar region; J98.11 Atelectasis; I11.9 Hypertensive heart disease without heart failure; Z79.899 Other long term (current) drug therapy; Z86.711 Personal history of pulmonary embolism; Z79.01 Long term (current) use of anticoagulants; Z88.8 Allergy status to other drugs, medicaments and biological substances; Z96.659 Presence of unspecified artificial knee joint; Z90.710 Acquired absence of both cervix and uterus; Z98.42 Cataract extraction status, left eye; Z98.41 Cataract extraction status, right eye; Z20.822 Contact with and (suspected) exposure to COVID-19; Z80.3 Family history of malignant neoplasm of breast; Z80.49 Family history of malignant neoplasm of other genital organs; Z83.3 Family history of diabetes mellitus; Z77.22 Contact with and (suspected) exposure to environmental tobacco smoke (acute) (chronic); X58.XXXA Exposure to other specified factors, initial encounter
CPT/HCPCS: 96374; 99285; 36415; 94760; 93005; 85379; 83880; 80053; 83605; 83735; 84484; 85025; 85610; 85730; 87636; 71046; 71275; G0378 ×2; J1940; Q9967